=== PATIENT | male | born 1930 | race Caucasian/White ===

== ENCOUNTER 2016-03-30 10:14 | Outpatient (CLI) | payer OTHER ==
--- NOTE | 2016-03-30 10:52 | DIAGNOSTIC IMAGING REPORT ---
PROCEDURE: XR CHEST 2 VIEW INDICATION: WEAKNESS,FATIGUE,COUGH TECHNIQUE: PA and lateral views. COMPARISON: Chest 07/10/2015 and 05/27/2011 FINDINGS: There is a new right lower lobe infiltrate. Left lung is unchanged and clear other than some old scarring in the left lower lobe. IMPRESSION: 1. New right lower lobe infiltrate. Results were called to Bruna Whiteside at 10:50 a.m.
== END 2016-03-30 23:00 ==
LOC: XR SRH 10:14
DX: R91.8 Other nonspecific abnormal finding of lung field (principal)

== ENCOUNTER 2016-04-04 10:57 | Inpatient (IN) | payer OTHER ==
[2016-04-04] VITALS (8 sets, daily range): BP systolic 91–129; BP diastolic 39–63
[~2016-04-04] VITALS: Ht 180.3 cm; Wt 80.0 kg
--- NOTE | 2016-04-04 12:11 | DIAGNOSTIC IMAGING REPORT ---
PROCEDURE: XR CHEST 1 VIEW INDICATION: SYNCOPE TECHNIQUE: Portable AP view 11:56 a.m. COMPARISON: Chest 03/30/16 FINDINGS: There has been some improvement in the right lower lobe infiltrate. The left lung is unchanged. Heart size remains normal. IMPRESSION: 1. Decrease in right lower lobe infiltrate.
--- NOTE | 2016-04-04 13:26 | ED CLINICAL REPORT ---
Clinical Report - Physicians/Mid Levels [facility] [address] [place] [address] 04/04/2016 10:59 Patient: BINTA GÓMEZ SR Time Seen: 11:35 Apr 04 2016. Arrived- By ambulance. Historian- patient and EMS personnel. HISTORY OF PRESENT ILLNESS The patient has recovered. Chief Complaint: SINGLE SYNCOPAL EPISODE. This occurred just prior to arrival While visiting in [place] today. Event was witnessed. (Son). The patient felt faint, lost consciousness completely and collapsed. The patient had preceding symptoms of light-headedness and nausea. At time of event, he was standing. Had a single episode. The episode lasted (1 minutes). The patient currently has weakness. Similar symptoms previously: None. Recent medical care: Not recently seen/assessed. REVIEW OF SYSTEMS No headache, chest pain, palpitations, abdominal pain or vomiting. No diarrhea, black stools, sore throat or throat or difficulty breathing. No difficulty with urination, skin rash, enlarged lymph nodes, cough or diabetic symptoms. No easy bruising. The patient has had dizziness, weakness, and weakness. All systems otherwise negative, except as recorded above. PAST HISTORY No history of seizure, stroke or heart disease. Has not had GI bleeding. No history of dysrhythmia. Medications: Ctalopram 10 mg daily. Lovastatin 40 mg q.h.s.. Verapamil ER 180 mg q.d.. Mirtazapine 15 mg q.h.s.. Carbidopa-levodopa 25/100 q.i.d.. lisinopril 5 mg q.d. . Levofloxacin 500 mg q.d. x 10 days. Duoneb q.4-6h. prn. Rivastigmine Tartrate Oral 1.5, bid. Allergies: Erythromycin. SOCIAL HISTORY Former smoker. Occasional alcohol use. ADDITIONAL NOTES The nursing notes have been reviewed. PHYSICAL EXAM Vital Signs: 04/04/2016 11:00 BP: 143/67. HR: 131. RR: 20. O2 saturation: 91%. Appearance: Alert. No acute distress. Eyes: Pupils equal, round and reactive to light. No nystagmus. Extraocular movements normal. ENT: Normal ENT inspection. Moist mucous membranes. Pharynx normal. Neck: Normal inspection. CVS: Normal heart rate and rhythm. Heart sounds normal. Pulses normal. Respiratory: No respiratory distress. Mild rales in the right lung base posteriorly. Abdomen: Soft and nontender. Back: Normal inspection. Skin: Normal skin color. No rash. Extremities: Extremities exhibit normal ROM. No lower extremity edema. Neuro: Alert. Oriented X 3. Mood/affect normal. Speech normal. Cranial nerves normal (as tested). No cerebellar findings. No motor deficit. No sensory deficit. Reflexes normal. LABS, X-RAYS, AND EKG EKG: Rate: 131. Atrial fibrillation. Q waves in lead V1 and V2. Left axis deviation. Non-specific ST segment / T wave abnormalities. Prior EKG unavailable. The study has been interpreted contemporaneously. The study has been independently viewed by me. The EKG appears to be a good tracing. Chest X-ray: Infiltrate in the right lower lobe. Consistent with pneumonia. Views: AP (portable). Technique: good. The X-rays were independently viewed by me and interpreted contemporaneously by me. Laboratory Tests: CBC w Diff: (SARAH: 04/04/2016 13:20) ( MsgRcvd 04/04/2016 13:33) Final results Test Result Flag Units (Reference) WHITE BLOOD COUNT 8.0 K/uL (4.5-11.5) RED BLOOD COUNT 4.70 M/uL (4.50-5.90) HEMOGLOBIN 14.0 gm/dL (13.5-17.5) HEMATOCRIT 44.6 % (41.0-53.0) MEAN CELL VOLUME 95 fL (80-100) MEAN CORPUSCULAR HGB 30 pg (26-34) MEAN CORPUSCULAR HGB CONC 32 g/dL (31-37) RED CELL DISTRIBUTION WIDTH 14.2 % (11.6-14.8) PLATELET COUNT 295 K/uL (150-400) NEUTROPHIL % 83.7 H % (50-75) LYMPH % 8.6 L % (25-40) MONO % 7.3 % (3-14) EOSINOPHIL % 0.3 % (0-4) BASOPHIL % 0.1 % (0-2) PT with INR: (SARAH: 04/04/2016 13:20) ( MsgRcvd 04/04/2016 13:43) Final results Test Result Flag Units (Reference) INR 1.1 (0.8-1.2) Low Intensity Therapy: INR 1.5-2.0 PT range 18.5-23.1Mod.Intensity Therapy: INR 2.0-3.0 PT range 23.1-31.5High Intensity Therapy: INR 2.5-3.5 PT range 27.4-35.5High Intensity Therapy 2: INR 3.0-4.0 PT range 31.5-39.3 APTT 34 SECONDS (24-34) CHEM 13 PANEL: (SARAH: 04/04/2016 13:20) ( MsgRcvd 04/04/2016 13:59) IP Test Result Flag Units (Reference) GLUCOSE 110 mg/dL (70-110) BUN 19 H mg/dL (7-18) CREATININE 1.0 mg/dL (0.6-1.3) Estimated GFR >60 mL/min Estimated GFR- >60 mL/min Note: Persistent reduction over 3 months in eGFR<60 mL/min/1.73 m2 defines CKD. Patients with eGFR values>=60 mL/min/1.73 m2 may also have CKD if evidence ofpersistent proteinuria. Additional information may be foundat www.kidney.org. SODIUM 146 H mmol/L (136-145) POTASSIUM 4.5 mmol/L (3.5-5.1) CHLORIDE 108 H mmol/L (98-107) CARBON DIOXIDE 37 H mmol/L (21-32) CALCIUM 8.2 L mg/dL (8.5-10.1) TOTAL PROTEIN 6.2 L g/dL (6.4-8.2) ALBUMIN 2.7 L g/dL (3.3-5.0) BILIRUBIN, TOTAL 0.5 mg/dL (0.0-1.0) ALKALINE PHOSPHATASE 56 U/L (46-116) AST (SGOT) 19 U/L (15-37) ALT (SGPT) <6 L U/L (12-78) MAGNESIUM 1.7 L mg/dL (1.8-2.4) CPK 29 U/L (24-260) TROPONIN I 0.06 ng/mL (0.00-1.5) TROPONIN REFERENCE RANGE:<0.1 NEGATIVE0.1-1.5 INDETERMINANT>1.5 POSITIVE . PROGRESS AND PROCEDURES Course of Care: Pt took ASA 325 mg today. Diltiazem 10 mg IV Diltiazem drip 10 mg /hour Pt already on levaquin due to recently diagnosed pneumonia Patient is stable. Discussed case with on-call health care provider, (Crow). Reviewed test results. Agreed upon treatment plan. Health care provider will see patient in ED. Patient/family counseled. Old medical records ordered. Disposition orders written. Disposition: Admitted to the Critical Care Unit. CLINICAL IMPRESSION Syncope due to new onset atrial fibrillation New onset atrial fibrillation with RVR Ongoing pneumonia. (Electronically signed by Emiliano Benito MD 04/05/2016 13:42)
--- NOTE | 2016-04-04 13:26 | ED ORDER SUMMARY ---
..... Patient: BINTA GÓMEZ SR OrderSheet [facility] VisitID: [id number] [address] [place] [address] 86y, M Registration Date/Time: 04/04/2016 ORDER SHEET Weight: 84.3 kg (stated) Allergies: Erythromycin GENERAL ORDERS: Chest 1V Urgent (11:44 04/04/2016 Chasity KIM) (Ack 11:46 SCouse ER Tech1) (13:41 SBalde R.N.) Sap Pi Architect (Continuous) (11:44 04/04/2016 Chasity KIM) (12:11 SStone R.N.) Cardiac Panel Stat (:04/04/2016 Chasity KIM) (Ack 11:46 SCouse ER Tech1) (13:41 SBalde R.N.) BNP Urgent (11:04/04/2016 Chasity KIM) (Ack 11:46 SCouse ER Tech1) (13:41 SBalde R.N.) TSH Urgent (11:45 04/04/2016 Chasity KIM) (Ack 11:46 SCouse ER Tech1) (13:41 SBalde R.N.) PT with INR Urgent (11:45 04/04/2016 Chasity KIM) (Ack 11:46 SCouse ER Tech1) (13:41 SBalde R.N.) PTT Urgent (11:45 04/04/2016 Chasity KIM) (Ack 11:46 SCouse ER Tech1) (13:41 SBalde R.N.) Pulse oximeter (11:45 04/04/2016 Chasity KIM) (12:11 SStone R.N.) Oxygen (2 L/min) (NC) (:45 04/04/2016 Chasity KIM) (12:11 SStone R.N.) EKG - ER Stat (:04/04/2016 Chasity KIM) (11:45 [facility] ER Tech1) MEDICATION ORDERS: Cardizem Drip IV : 10 mg/hr for X1 (NOW); Routine (13:51 04/04/2016 Chasity KIM) (14:13 SStone R.N.) IV FLUIDS: Cardizem IV 10 mg (NOW) (11:44 04/04/2016 Chasity IKM) (12:10 SStone R.N.) IV Saline Lock (11:45 04/04/2016 Chasity KIM) (Ack 12:11 SStone R.N.) (13:40 SBalde R.N.) ORDER SHEET NOTES: [Electronically signed by Emiliano Benito MD (13:42 04/05/2016)] [Electronically signed by Lisset Zapien R.N. (11:51 04/08/2016)] [Electronically locked/signed by Lisset Zapien R.N. (11:51 04/08/2016)]
--- NOTE | 2016-04-04 13:26 | ED ORDER SUMMARY ---
..... Patient: BINTA GÓMEZ SR OrderSheet [facility] VisitID: [id number] [address] [place] [address] 86y, M Registration Date/Time: 04/04/2016 ORDER SHEET Weight: 84.3 kg (stated) Allergies: Erythromycin GENERAL ORDERS: Chest 1V Urgent (11:44 04/04/2016 Chasity KIM) (Ack 11:46 VAouse ER Tech1) (13:41 SBalde R.N.) Wind Turbine Mechanical Engineer (Continuous) (11:44 04/04/2016 Chasity KIM) (12:11 SStone R.N.) Cardiac Panel Stat (:04/04/2016 Chasity KIM) (Ack 11:46 VAouse ER Tech1) (13:41 SBalde R.N.) BNP Urgent (11:04/04/2016 Chasity KIM) (Ack 11:46 VAouse ER Tech1) (13:41 SBalde R.N.) TSH Urgent (11:45 04/04/2016 Chasity KIM) (Ack 11:46 VAouse ER Tech1) (13:41 SBalde R.N.) PT with INR Urgent (11:45 04/04/2016 Chasity KIM) (Ack 11:46 VAouse ER Tech1) (13:41 SBalde R.N.) PTT Urgent (11:45 04/04/2016 Chasity KIM) (Ack 11:46 VAouse ER Tech1) (13:41 SBalde R.N.) Pulse oximeter (11:45 04/04/2016 Chasity KIM) (12:11 SStone R.N.) Oxygen (2 L/min) (NC) (:45 04/04/2016 Chasity KIM) (12:11 SStone R.N.) EKG - ER Stat (:04/04/2016 Chasity KIM) (11:45 [facility] ER Tech1) MEDICATION ORDERS: Cardizem Drip IV : 10 mg/hr for X1 (NOW); Routine (13:51 04/04/2016 Chasity KIM) (14:13 SStone R.N.) IV FLUIDS: Cardizem IV 10 mg (NOW) (11:44 04/04/2016 Chasity KIM) (12:10 SStone R.N.) IV Saline Lock (11:45 04/04/2016 Chasity KIM) (Ack 12:11 SStone R.N.) (13:40 SBalde R.N.) ORDER SHEET NOTES: [Electronically signed by Emilinao Benito MD (13:42 04/05/2016)] [Electronically signed by Lisset Zapien R.N. (11:51 04/08/2016)] [Electronically locked/signed by Lisset Zapien R.N. (11:51 04/08/2016)]
--- NOTE | 2016-04-04 13:26 | ED NURSING NOTES ---
Clinical Report - [facility] [address] [place] [address] 04/04/2016 10:59 Patient: BINTA GÓMEZ SR TRIAGE Triage time 11:00. Acuity: LEVEL 2. Chief Complaint: (syncope and new onset of a. fib). --11:09 Lisset Zapien R.N. 11:00 04/04/16. BP: 131/69. HR: 137. RR: 22. O2 saturation: 81%. Temp: 97.9 F. --11:09 Lisset Zapien R.N. 11:09 04/04/16. O2 saturation: 92% at 3 liters/minute. --11:09 Lisset Zapien R.N. Weight: 84.3 kg stated. Height/Length: 71 inches Per Patient. BMI: 25.9. --11:08 Lisset Zapien R.N. Medications Rivastigmine Tartrate Oral 1.5, bid. --11:18 Lisset Zapien R.N. Duoneb q.4-6h. prn. --11:18 Lisset Zapien R.N. Levofloxacin 500 mg q.d. x 10 days. --11:18 Lisset Zapien R.N. lisinopril 5 mg q.d. . --11:19 Lisset Zapien R.N. Carbidopa-levodopa 25/100 q.i.d.. --11:19 Lisset Zapien R.N. Mirtazapine 15 mg q.h.s.. --11:19 Lisset Zapien R.N. Verapamil ER 180 mg q.d.. --11:19 Lisset Zapien R.N. Lovastatin 40 mg q.h.s.. --11:20 Lisset Zapien R.N. Ctalopram 10 mg daily. --11:20 Lisset Zapien R.N. Allergies Erythromycin. --11:06 Lisset Zapien R.N. History Arrived by EMS, and (M48). Historian: daughter, patient and family (Sheri). Accompanied by family. Primary physician (dom). This started just prior to arrival. Onset. (Syncope x seconds. A fib, new onset). He has had a cough. ( diagnosed with PNA 1 week prior.). Treatment LENS AND FRAMES PRESCRIPTION CLERK: None. SOCIAL HX: Former smoker. Occasional alcohol use. No drug use. No infectious disease exposure. FALL RISK ASSESSMENT: Fall risk assessment completed. Risk factors identified include patient age greater than 65 years, history of fall and impairment of mobility. Fall interventions initiated. Side rails up x2. Bed in low position. Call light in reach of patient and family. Instructed not to get up without assistance. --11:09 Lisset Zapien R.N. Interventions ID band on patient. To treatment room. --11:09 Lisset Zapien R.N. PHYSICAL ASSESSMENT To room via stretcher. Patient gowned. ( pt. family reports no known history of a. fib). GENERAL / NEURO / PSYCH: Decreased awareness. The patient is disoriented to place and time. HEENT: No facial asymmetry noted. Mucous membranes are pink. RESPIRATORY: The patient can speak in full sentences. Cough. Rhonchi present in the right lung base posteriorly. CVS: Cardiac rhythm: atrial fibrillation. GI / : Abdomen soft and nontender. SKIN: Skin intact. Skin is warm and dry. --11:16 Lisset Zapien R.N. NURSING PROGRESS NOTES 11:04/04/2016 Site #1 started prior to arrival by EMS via IV in the left wrist with an 18g angiocath. --11:11 Lisset Zapien R.N. Cardiac rhythm: atrial fibrillation. The initial plan of care for this patient includes an assessment with efforts to address impairment of the cardiovascular system; cognitive impairments. This plan of care was discussed with the patient, family and daughter and EMS. Oxygen administered. Monitoring of patient in place. EKG time: (11:11). EKG was performed by a keysha. Patient gowned. Head of bed elevated. Reassurance given. Patient identifiers checked. Call light placed in reach. Side rails up x 2. Bed placed in lowest position. Brakes of bed on. Patient ready for evaluation. Patient waiting for evaluation. --11:11 Lisset Zapien R.N. ( family at bedside. warm blanket provided. Call light within reach. within sight of the nurses's station). --11:20 Lisset Zapien R.N. 11:00 04/04/16. BP: 143/67. HR: 131. RR: 20. O2 saturation: 91% at 3 liters/minute. --11:28 Lisset Zapien R.N. 12:10 04/04/2016 Cardizem IVP 10 mg given over 2 minute(s) via site #1. --12:10 Lisset Zapien R.N. ( Cardizem 10 mg pushed. Prior to administration BP 124/72, P124 Post administration BP 104/65, P 142). --12:12 Lisset Zapien R.N. 12:12 04/04/16. BP: 85/56. HR: 111. O2 saturation: 94% at 3 liters/minute. --12:21 Lisset Zapien R.N. 12:23 04/04/16. BP: 93/66. HR: 124. --12:24 Lisset Zapien R.N. 12:29 04/04/16. BP: 125/62. HR: 118. O2 saturation: 98% at 3 liters/minute. --12:30 Lisset Zapien R.N. <<STRICKEN ENTRY-- ( Cardizem gtt at 10 mg/hr started with initial pressure of 121/70, Pulse 22, 100% on 3L. Pt. turned down to 1.5L nc). --13:03 Lisset Zapien R.N. --END STRIKE>> Charted On Wrong Patient --13:03 Lisset Zapien R.N. ( cardizem gtt at 10 mg/hr started via verbal order with initial pressure of 121/70, pulse 122, 94% on 3L nc.). --13:04 Lisset Zapien R.N. 13:18 04/04/16. BP: 124/66. HR: 124. RR: 16. --13:20 Lisset Zapien R.N. ( Dr. Maria here to see pt for admission.). --13:42 Amaya Mosquera R.N. 13:04 04/04/2016 Started 10 mg of Cardizem Drip IV in bag #1 250 mL; at 10 mg/hr over 25 hour(s) via site #1 via IV pump. Allergies verified and confirmed 5 rights. IV patency established. IV site checked: no pain, redness, or swelling. IV flushed thoroughly pre- and post-medication administration. --14:13 Lisset Zapien R.N. ( back from lunch, report back from rodney naranjo, who covered for lunch.). --14:15 Lisset Zapien R.N. 14:15 04/04/16. BP: 138/68. HR: 99. RR: 16. O2 saturation: 97% at 3 liters/minute. --14:15 Lisset Zapien R.N. ( Pt. sleeping, lunch tray ordered (cardiac diet)). --14:44 Lisset Zapien R.N. 14:43 04/04/16. BP: 104/58. HR: 94. --14:44 Lisset Zapien R.N. 15:10 04/04/16. BP: 115/57. HR: 65. RR: 16. O2 saturation: 96%. --15:34 Lisset Zapien R.N. DISPOSITION / DISCHARGE Departure time: 1535. Admitted to the Critical Care Unit ([id number]). Transported via stretcher by nurse with monitor, IV and O2. Report was given to a nurse via a phone call. Report included patient's care, treatment, medications, reviewed medication reconcilliation, and condition (including any recent changes or anticipated changes). All questions were answered. Report was acknowledged. ( iv infusing during transport to CCU). Patient's personal items; items were transported with the patient. --15:33 Lisset Zapien R.N. 15:25 04/04/16. BP: 115/57. HR: 65. RR: 18. O2 saturation: 96% on nasal cannula at 3 liters/minute. --15:33 Lisset Zapien R.N. Locked/Released at 04/08/2016 11:51 by Lisset Zapien R.N.
--- NOTE | 2016-04-04 14:08 | Progress Note ---
Subjective General 86 y.o. male with syncope, weakness, new onset afib to go to ICU for dilt gtt and try to get to beta freya. Full note dictated
--- NOTE | 2016-04-04 15:05 | HISTORY AND PHYSICAL ---
ADMITTED: 04/04/2016 CHIEF COMPLAINT: 1. Weakness 2. Syncope HISTORY OF PRESENT ILLNESS: The patient was going to go visit his at the local long-term home around 10:00 today when he started feeling weak. They were able to sit him down in a chair and then he passed out for about 60 seconds, per son who was with him. At that point, they did try to get him up into the car. They felt his legs were a little bit weak. He otherwise got over to the emergency department where, in the ED, they evaluated him and found him to be in atrial fibrillation with a rapid ventricular rate, and he is being admitted for new onset atrial fibrillation, on a diltiazem drip, to the ICU. MEDICAL/SURGICAL HISTORY: Medical history: He has had weakness, fatigue, cough, depression, dementia, edema, aortic aneurysm, Parkinson's. Family history of stroke, family history of diabetes. Family history of colon cancer. Hydronephrosis, hyperlipidemia, hypertension, and nephrolithiasis. Past surgical history: He has had a back surgery and a TURP. MEDICATIONS: 1. Levodopa/carbidopa 25/100, one p.o. q.i.d. 2. Mirtazapine 15 mg p.o. daily. 3. Tessalon Perles 100 mg p.o. daily. 4. Rivastigmine 1.5 mg p.o. b.i.d. 5. Lisinopril 10 mg p.o. daily. 6. Lovastatin 40 mg p.o. at bedtime. 7. Aspirin 81 mg daily. 8. Vitamin D 2000 international units 2 tablets daily. ALLERGIES: 1. ERYTHROMYCIN. SOCIAL HISTORY: He is , has 6 children. Evangelical. Retired. He does not do any drugs. Occasionally has some beer on a holiday, and quit smoking in 1979. FAMILY HISTORY: Notable for colon cancer, diabetes, heart disease, stroke, other cancers and Parkinson's. REVIEW OF SYSTEMS: Notable for leg weakness, upper respiratory infection and pneumonia recently, Parkinson's, bloody nose, puffy legs that has been going on just recently, and chronic memory loss issues. Denies any other bleeding and denies any other acute issues or problems. No localized weakness on his arms or legs that is unilateral or any other concerns. He does have some chronic shaking because of the Parkinson's disease. PHYSICAL EXAMINATION: GENERAL: He is an alert male, hard of hearing. VITAL SIGNS: Blood pressure 131/69, heart rate of 137, respirations 22, saturating 81% on room air initially, temperature 97.9. Repeat O2 saturation on 3 liters is 92%. HEENT: Extraocular movements are intact. Pupils equal, round, and reactive to light. Oropharynx has dentures above and below. NECK: Supple, without lymphadenopathy, jugular venous distention or bruits. LUNGS: Clear to auscultation bilaterally. HEART: Irregularly irregular. No murmur. ABDOMEN: Soft. It is nontender, nondistended. EXTREMITIES: Trace to 1+ edema bilaterally. GENITOURINARY: Deferred. RECTAL: Deferred. NEUROLOGIC: Cranial nerves II-XII appear intact, other than his hearing loss. Strength and sensation are grossly intact, with normal reflexes and good hot header operator strength bilaterally. LAB/IMAGING: White count of 8.0, hematocrit 44.6, and platelets of 295. INR of 1.1. Chemistries: Sodium 146, potassium 4.5, chloride of 108, HCO3 of 37, BUN of 19, creatinine 1.0, glucose 110, calcium 8.2, magnesium 1.7. Bilirubin 0.5, AST of 19, ALT is less than 6, alkaline phosphatase 56. A creatinine kinase of 29, troponin-I of 0.06. BNP of 749, total protein 6.2, albumin 2.7. TSH is pending. His chest x-ray shows a decrease in right lower lobe infiltrate. He is on antibiotics for this. EKG shows atrial fibrillation with a rapid ventricular rate. There is a QRS that is prolonged, with intraventricular conduction delay and appears to have Q's in the anterior leads. IMPRESSION: 1. This is an 86-year-old male who presented to the emergency department with an episode of syncope, where workup has found atrial fibrillation with a rapid ventricular rate. He also seems to be in some mild congestive heart failure. PLAN: We will admit him to the hospital, try to rate control him initially with diltiazem drip and change him over to beta blockers with metoprolol, and then use diuretics as needed for his congestive heart failure. Clinically he seems to be doing okay at the moment, with trace to 1 edema, and did not have any significant crackles on his exam. We will anticipate that it will take him a couple days in the hospital to improve. I will start him on 15 mg of Xarelto for his anticoagulation. He has had some bloody noses, and so we will have to watch this carefully. He has had a history of using an aspirin a day as well, and we will hold on this at this time, with the Xarelto being started.
[2016-04-04] MEDS ORDERED: EXELON1.5 MG PO (18:23)
[2016-04-04] MEDS ORDERED: IPRATROPIUM BROMIDE/ IN (18:24)
[2016-04-04] MEDS ORDERED: LEVAQUIN500 MG PO (18:24)
[2016-04-04] MEDS ORDERED: LISINOPRIL10 MG PO (18:25)
[2016-04-04] MEDS ORDERED: SINEMET1 TA2 PO (18:25)
[2016-04-04] MEDS ORDERED: CELEXA10 MG PO (18:26)
[2016-04-04] MEDS ORDERED: LOVASTATIN40 MG PO (18:26)
[2016-04-04] MEDS ORDERED: MIRTAZAPINE15 MG PO (18:26)
[2016-04-05] VITALS (19 sets, daily range): BP systolic 94–158; BP diastolic 49–98
--- NOTE | 2016-04-05 06:51 | Progress Note ---
Subjective General Patient states that he is doing well. No concerns. Last night spontaneously converted to sinus rhythm and is now on beta blockers. The ca channel freya gtt stopped last pm. Is waiting on echo for today. No cp, sob. Physical Exam Vital Signs / I&Os Vital Signs Date Time Temp Pulse Resp B/P Pulse O2 O2 Flow FiO2 Ox Delivery Rate 04/05 0519 98.6 57 20 129/76 97 Nasal 2.0 Cannula 04/05 0400 98.6 57 20 111/53 97 Nasal 2.0 Cannula 04/05 0300 113/60 04/05 0227 58 20 99/75 98 Nasal 2.0 Cannula 04/05 0136 60 04/05 0100 98.6 56 20 104/50 96 Nasal 2.0 Cannula 04/05 0030 104/51 04/05 0005 57 23 94/51 98 Nasal 2.0 Cannula 04/04 2306 56 97/47 04/04 2209 60 27 91/39 100 Nasal 2.0 Cannula 04/04 2108 66 32 125/54 98 Nasal 2.0 Cannula 04/04 2012 2.0 04/04 2004 Nasal 2.0 Cannula 04/04 2005 70 26 115/50 100 Nasal 2.0 Cannula 04/04 1936 77 04/04 1908 71 35 112/56 100 Nasal 2.0 Cannula 04/04 1800 70 19 98/57 100 Nasal 2.0 Cannula 04/04 1700 77 30 126/63 95 Nasal 2.0 Cannula 04/04 1600 Nasal 2.0 Cannula 04/04 1550 98.6 65 31 129/57 95 Nasal 2.0 Cannula I&O 04/05 0000 04/04 1600 04/04 0800 Intake Total 690 Output Total 150 Balance 540 General Appearance Alert, hard of hearing. HEENT hard of hearing. Lungs Clear to auscultation, Normal air movement Cardiovascular Regular rate and rhythm Abdomen Soft, No tenderness Extremities no edema LAB Results Laboratory Tests 04/05 04/05 04/04 04/04 04/04 0515 0515 2218 1320 1320 Chemistry Plasma Sodium (136 - 145 mmol/L) 144 146 Plasma Potassium (3.5 - 5.1 mmol/L) 5.1 4.5 Plasma Chloride (98 - 107 mmol/L) 107 108 CO2 (Enzymatic) (21 - 32 mmol/L) 38 37 BUN (7 - 18 mg/dL) 24 19 Creatinine (0.6 - 1.3 mg/dL) 1.0 1.0 Est GFR ( Amer) (mL/min) >60 >60 Est GFR (Non-Af Amer) (mL/min) >60 >60 Glucose (70 - 110 mg/dL) 96 110 Plasma Calcium (8.5 - 10.1 mg/dL) 7.7 8.2 Plasma Magnesium (1.8 - 2.4 mg/dL) 1.7 Total Bilirubin (0.0 - 1.0 mg/dL) 0.5 0.5 AST (15 - 37 U/L) 13 19 ALT (12 - 78 U/L) 9 <6 Alkaline Phosphatase (46 - 116 U/L) 51 56 Creatine Kinase (24 - 260 U/L) 29 Troponin (0.00 - 1.5 ng/mL) <0.05 <0.05 0.06 B-Natriuretic Peptide (5 - 100 pg/ml) 749 Total Protein (6.4 - 8.2 g/dL) 5.3 6.2 Albumin (3.3 - 5.0 g/dL) 2.5 2.7 TSH 3rd Generation (0.30 - 3.74 uIU/mL) 0.220 Coagulation INR (0.8 - 1.2) 1.1 APTT (24 - 34 SECONDS) 34 Hematology WBC (4.5 - 11.5 K/uL) 6.6 8.0 RBC (4.50 - 5.90 M/uL) 4.30 4.70 Hgb (13.5 - 17.5 gm/dL) 12.9 14.0 Hct (41.0 - 53.0 %) 41.1 44.6 MCV (80 - 100 fL) 96 95 MCH (26 - 34 pg) 30 30 RDW (11.6 - 14.8 %) 14.5 14.2 Neut % (Auto) (50 - 75 %) 66.2 83.7 Lymph % (Auto) (25 - 40 %) 18.6 8.6 Blair % (Auto) (3 - 14 %) 11.3 7.3 Eos % (Auto) (0 - 4 %) 3.6 0.3 Baso % (Auto) (0 - 2 %) 0.3 0.1 Plt Count, EDTA (150 - 400 K/uL) 259 295 PUBS MCHC (31 - 37 g/dL) 31 32 04/04 1145 Chemistry TSH 3rd Generation Cancelled Assessment and Plan Problem List 1. Atrial fibrillation Plan Now sinus this am. Trop neg. Echo pending. D/c home after echo likely 2. Weakness Plan Ambulate prior to d/c. 3. Syncope and collapse Plan Seems to be related to afib RVR now resolved. Will d/c home on beta freya with close follow up.
[2016-04-05] MEDS ORDERED: TOPROL XL50 MG PO (06:55)
--- NOTE | 2016-04-05 06:58 | Provider's Discharge Care Plan ---
Problem, Goal, Plan Problem List 1. Atrial fibrillation Instructions: Follow up as directed (1-2 weeks), Take meds as directed 2. Weakness Instructions: Take meds as directed 3. Syncope and collapse Instructions: Take meds as directed
--- NOTE | 2016-04-05 17:24 | DIAGNOSTIC IMAGING REPORT ---
REFERRING PHYSICIAN/PROVIDER: Xander Maria MD CONSULTING HOSPITALITY WORKERS: Fran Leggett MD PROCEDURE: M-mode 2D echocardiography with spectral and color flow Doppler TECHNICAL QUALITY: The study quality was technically difficult. INDICATION: NEW ONSET AFIB RHYTHM DURING PROCEDURE: The patient was in normal sinus rhythm during the exam. INTERPRETATIONS: LEFT VENTRICLE: The left ventricle is normal in size. Left ventricular wall thickness is mildly increased. Left ventricular systolic function is normal. The ejection fraction is estimated to be 55-60%. There are no obvious focal wall motion abnormalities noted but poor endocardial definition reduces the sensitivity for the detection of such. Assessment of diastolic parameters indicates the relaxation abnormality of the left ventricle, consistent with normal filling pressures. RIGHT VENTRICLE: The right ventricle is normal in size and function. ATRIA: Both atria are mildly dilated. A patent foramen ovale is present. A patent foramen ovale is present and there is a low risk for embolism. MITRAL VALVE: The mitral valve is normal in structure and function. There is trace mitral regurgitation. AORTIC VALVE: The aortic valve is not well visualized but there is no evidence for hemodynamically significant valvular aortic stenosis. There is mild aortic regurgitation. TRICUSPID VALVE: The tricuspid valve is normal in structure and function and there is mild to moderate tricuspid regurgitation. The right ventricular systolic pressure is at least 35 mmHg. PULMONIC VALVE: Pulmonic valve is not well visualized. GREAT VESSELS: The aorta root is normal size. The ascending aorta cannot be visualized. The inferior vena cava was not well visualized. PERICARDIUM: The pericardium appears normal. Miscellaneous: Hepatic cysts are noted. IMPRESSION: 1. The left ventricular wall is mildly increased and there is evidence for normal LV systolic function. 2. The right ventricle is normal in size and function. 3. There is no gross evidence for significant valvular abnormalities. 4. The aorta root is essentially within normal limits. 5. Hepatic cysts are noted. 6. A patent foramen ovale is noted but is rather small in size and low risk for embolism.
--- NOTE | 2016-04-05 18:35 | Progress Note ---
Subjective General PM note-Has some SOB and hypoxia, weakness with transfers. Trial of a little lasix and also likely d/c to SNF for weakness when he is stable. O2 NC at d/c? Physical Exam Vital Signs / I&Os Vital Signs Date Time Temp Pulse Resp B/P Pulse O2 O2 Flow FiO2 Ox Delivery Rate 04/05 1806 99.1 76 35 126/56 92 Nasal 1.0 Cannula 04/05 1609 64 15 145/95 95 Nasal 1.0 Cannula 04/05 1515 63 22 158/64 95 Nasal 1.0 Cannula 04/05 1300 62 22 123/60 95 Nasal 1.0 Cannula 04/05 1230 74 122/67 95 Nasal 1.0 Cannula 04/05 1142 Nasal 1.0 Cannula 04/05 1132 65 24 119/98 94 Nasal 3.0 Cannula 04/05 1111 59 26 119/49 94 Nasal 3.0 Cannula 04/05 0934 64 136/54 100 Nasal 3.0 Cannula 04/05 0900 Nasal 3.0 Cannula 04/05 0843 67 24 128/66 100 Nasal 2.0 Cannula 04/05 0700 2.0 04/05 0700 98.6 59 24 128/96 100 Nasal 3.0 Cannula 04/05 0600 98.6 59 27 136/65 100 Nasal 3.0 Cannula 04/05 0519 98.6 57 20 129/76 97 Nasal 2.0 Cannula 04/05 0400 98.6 57 20 111/53 97 Nasal 2.0 Cannula 04/05 0300 113/60 04/05 0227 58 20 99/75 98 Nasal 2.0 Cannula 04/05 0136 60 04/05 0100 98.6 56 20 104/50 96 Nasal 2.0 Cannula 04/05 0030 104/51 04/05 0005 57 23 94/51 98 Nasal 2.0 Cannula 04/04 2306 56 97/47 04/04 2209 60 27 91/39 100 Nasal 2.0 Cannula 04/04 2108 66 32 125/54 98 Nasal 2.0 Cannula 04/04 2012 2.0 04/04 2004 Nasal 2.0 Cannula 04/04 2004 70 26 115/50 100 Nasal 2.0 Cannula 04/04 1936 77 04/04 1908 71 35 112/56 100 Nasal 2.0 Cannula I&O 04/05 0000 04/04 1600 04/04 0800 Intake Total 690 Output Total 150 Balance 540 LAB Results Laboratory Tests 04/05 04/05 04/04 0515 [id number] Chemistry Plasma Sodium (136 - 145 mmol/L) 144 Plasma Potassium (3.5 - 5.1 mmol/L) 5.1 Plasma Chloride (98 - 107 mmol/L) 107 CO2 (Enzymatic) (21 - 32 mmol/L) 38 BUN (7 - 18 mg/dL) 24 Creatinine (0.6 - 1.3 mg/dL) 1.0 Est GFR ( Amer) (mL/min) >60 Est GFR (Non-Af Amer) (mL/min) >60 Glucose (70 - 110 mg/dL) 96 Plasma Calcium (8.5 - 10.1 mg/dL) 7.7 Total Bilirubin (0.0 - 1.0 mg/dL) 0.5 AST (15 - 37 U/L) 13 ALT (12 - 78 U/L) 9 Alkaline Phosphatase (46 - 116 U/L) 51 Troponin (0.00 - 1.5 ng/mL) <0.05 <0.05 Total Protein (6.4 - 8.2 g/dL) 5.3 Albumin (3.3 - 5.0 g/dL) 2.5 Hematology WBC (4.5 - 11.5 K/uL) 6.6 RBC (4.50 - 5.90 M/uL) 4.30 Hgb (13.5 - 17.5 gm/dL) 12.9 Hct (41.0 - 53.0 %) 41.1 MCV (80 - 100 fL) 96 MCH (26 - 34 pg) 30 RDW (11.6 - 14.8 %) 14.5 Neut % (Auto) (50 - 75 %) 66.2 Lymph % (Auto) (25 - 40 %) 18.6 [place] % (Auto) (3 - 14 %) 11.3 Eos % (Auto) (0 - 4 %) 3.6 Baso % (Auto) (0 - 2 %) 0.3 Plt Count, EDTA (150 - 400 K/uL) 259 PUBS MCHC (31 - 37 g/dL) 31
[2016-04-06 02:16] VITALS: BP 128/87
[2016-04-06 06:51] VITALS: BP 141/61
--- NOTE | 2016-04-06 07:31 | Progress Note ---
Subjective General Patient is with hx of weakness and afib. Is now in sinus and is a little more alert this am. Had PT eval done yesterday and thought he would benefit from SNF. No cp,sob. Physical Exam Vital Signs / I&Os Vital Signs Date Time Temp Pulse Resp B/P Pulse O2 O2 Flow FiO2 Ox Delivery Rate 04/06 0653 98.6 04/06 0651 71 141/61 Nasal 3.0 Cannula 04/06 0631 68 28 95 Nasal 3.0 Cannula 04/06 0216 98.1 77 19 128/87 98 Nasal 3.0 Cannula 04/05 2324 Nasal 3.0 Cannula 04/05 2246 98.6 71 30 135/67 96 Nasal 3.0 Cannula 04/05 2107 1.0 04/05 1806 99.1 76 35 126/56 92 Nasal 1.0 Cannula 04/05 1609 64 15 145/95 95 Nasal 1.0 Cannula 04/05 1515 63 22 158/64 95 Nasal 1.0 Cannula 04/05 1300 62 22 123/60 95 Nasal 1.0 Cannula 04/05 1230 74 122/67 95 Nasal 1.0 Cannula 04/05 1142 Nasal 1.0 Cannula 04/05 1132 65 24 119/98 94 Nasal 3.0 Cannula 04/05 1111 59 26 119/49 94 Nasal 3.0 Cannula 04/05 0934 64 136/54 100 Nasal 3.0 Cannula 04/05 0900 Nasal 3.0 Cannula 04/05 0843 67 24 128/66 100 Nasal 2.0 Cannula I&O 04/06 0000 04/05 1600 04/05 0800 Intake Total 825 572 954 Output Total 1650 300 Balance -825 272 954 HEENT Clear Lungs Clear to auscultation, Normal air movement Cardiovascular Regular rate and rhythm Abdomen Soft, No tenderness LAB Results Laboratory Tests 04/06 0408 Chemistry Plasma Sodium (136 - 145 mmol/L) 141 Plasma Potassium (3.5 - 5.1 mmol/L) 4.5 Plasma Chloride (98 - 107 mmol/L) 105 CO2 (Enzymatic) (21 - 32 mmol/L) 38 BUN (7 - 18 mg/dL) 20 Creatinine (0.6 - 1.3 mg/dL) 1.0 Est GFR ( Amer) (mL/min) >60 Est GFR (Non-Af Amer) (mL/min) >60 Glucose (70 - 110 mg/dL) 94 Plasma Calcium (8.5 - 10.1 mg/dL) 7.8 Assessment and Plan Problem List 1. Atrial fibrillation Plan Sinus at this time for over 24 hrs on metoprolol and doing well with BP and rate. Echo completed. 2. Weakness Plan Is working with PT and if not improved may need to have SNF. Recent pneumonia with the afib and likely cause of sig weakness.
--- NOTE | 2016-04-06 10:04 | Discharge Summary ---
Discharge Summary Report Admit Date 04/04/16 Discharge Date 04/06/16 Admission Diagnosis Afib, hx pneumonia, weakness, parkinsons Discharge Diagnosis Afib, hx pneumonia, weakness, parkinsons Brief History 86 y.o male presented to ER with hx of syncope and then found to be in Afib RVR - was with recent pneumonia ? trigger. Hospital Course 86 y.o male presented to ER with hx of syncope and then found to be in Afib RVR was treated with beta freya and dilt gtt, converted to sinus. Was still very weak and tired and low O2 sat. He is being transfered to SNF for strengthening and monitor o2 and sats General Appearance Alert, a little sleepy HEENT Atraumatic Lungs Normal air movement, some soft wheezes Cardiovascular Regular Rate Abdomen Soft, No tenderness Neurological weak Lab/Imaging Laboratory Tests 04/06 0408 Chemistry Plasma Sodium (136 - 145 mmol/L) 141 Plasma Potassium (3.5 - 5.1 mmol/L) 4.5 Plasma Chloride (98 - 107 mmol/L) 105 CO2 (Enzymatic) (21 - 32 mmol/L) 38 BUN (7 - 18 mg/dL) 20 Creatinine (0.6 - 1.3 mg/dL) 1.0 Est GFR ( Amer) (mL/min) >60 Est GFR (Non-Af Amer) (mL/min) >60 Glucose (70 - 110 mg/dL) 94 Plasma Calcium (8.5 - 10.1 mg/dL) 7.8 Discharge Instructions/Meds D/C to SNF work on strengthening. Will continue beta freya and also a low dose of lasix. Watch on O2 sats.
[2016-04-06] MEDS ORDERED: FUROSEMIDE20 MG PO (10:06)
--- NOTE | 2016-04-06 10:08 | Provider's Discharge Care Plan ---
Problem, Goal, Plan Problem List 1. Weakness Instructions: work with PT OT for strengthening at SNF, Monitor on O2 for hypoxia 2. Atrial fibrillation Instructions: Follow up as directed, Take meds as directed, resolved at this time. Discussed anticoag and holding on this with nose bleed hx and no longer afib.
[2016-04-06 11:44] VITALS: BP 128/66
--- NOTE | 2016-04-08 11:51 | ED DISCHARGE INSTRUCTIONS ---
Patient: BINTA GÓMEZ SR General Instructions [facility] VisitID: [id number] [address] [place] [address] 86y, M Registration Date/Time: 04/04/2016 Syncope due to new onset atrial fibrillation New onset atrial fibrillation with RVR Ongoing pneumonia. (Electronically signed by Emiliano Benito MD 04/05/2016 13:42)
--- NOTE | 2016-04-08 11:51 | ED MAR SUMMARY ---
..... Medication Administration Record [facility] [address] [place] [address] Patient: BINTA GÓMEZ Visit ID: [id number] 86y, M Weight: 84.3 kg Height/Length: 71 in BMI: 25.9 ALLERGIES: Erythromycin Given 12:10 04/04/2016 Lisset Zapien R.N. Medication Administered: CARDIZEM [IVP], Dose: 10 mg IVP over 2 minute(s), Site: #1 left wrist. Medication Ordered: Cardizem IV 10 mg (NOW). Start 13:04 04/04/2016 Lisset Zapien R.N. Medication Administered: CARDIZEM [IV DRIP], Dose: 10 mg Drip IV over 25 hour(s), Rate: 10 mg/hr, Dispensed: 250 mL bag, Site: #1 left wrist. Medication Ordered: Cardizem Drip IV : 10 mg/hr for X1 (NOW); Routine.
--- NOTE | 2016-04-08 11:51 | ED DISCHARGE INSTRUCTIONS ---
Patient: BINTA GÓMEZ SR General Instructions [facility] VisitID: [id number] [address] [place] [address] 86y, M Registration Date/Time: 04/04/2016 Syncope due to new onset atrial fibrillation New onset atrial fibrillation with RVR Ongoing pneumonia. (Electronically signed by Emiliano Benito MD 04/05/2016 13:42)
--- NOTE | 2016-04-08 11:51 | ED MAR SUMMARY ---
..... Medication Administration Record [facility] [address] [place] [address] Patient: BINTA GÓMEZ Visit ID: [id number] 86y, M Weight: 84.3 kg Height/Length: 71 in BMI: 25.9 ALLERGIES: Erythromycin Given 12:10 04/04/2016 Lisset Zapien R.N. Medication Administered: CARDIZEM [IVP], Dose: 10 mg IVP over 2 minute(s), Site: #1 left wrist. Medication Ordered: Cardizem IV 10 mg (NOW). Start 13:04 04/04/2016 Lisset Zapien R.N. Medication Administered: CARDIZEM [IV DRIP], Dose: 10 mg Drip IV over 25 hour(s), Rate: 10 mg/hr, Dispensed: 250 mL bag, Site: #1 left wrist. Medication Ordered: Cardizem Drip IV : 10 mg/hr for X1 (NOW); Routine.
--- NOTE | 2016-04-08 11:51 | ED MED RECONCILIATION SUMMARY ---
Patient: BINTA GÓMEZ SR Medication Reconciliation Report [facility] VisitID: [id number] [address] [place] [address] 86y, M Registration Date/Time: 04/04/2016 Weight: 84.3 kg Height/Length: 71 in. BMI: 25.9 ALLERGIES: Erythromycin The patient's Home Medications are listed below: THE FOLLOWING MEDICATIONS NEED TO BE RECONCILED: Carbidopa-levodopa 25/100 q.i.d. Ctalopram 10 mg daily Duoneb q.4-6h. prn Levofloxacin 500 mg q.d. x 10 days lisinopril 5 mg q.d. Lovastatin 40 mg q.h.s. Mirtazapine 15 mg q.h.s. Rivastigmine Tartrate Oral 1.5, bid Verapamil ER 180 mg q.d. The source(s) of the original Home Medication information: Not obtained. The following Medications were given to the patient in the Emergency Department: Cardizem [IVP] IVP 10 mg, administered: 04/04/2016 12:10:00 PM Cardizem [IV Drip] Drip IV bolus 0, then 10 mg 10 mg/hr, administered: 04/04/2016 1:04:00 PM The following Medications were prescribed to the patient: None.
--- NOTE | 2016-04-08 11:51 | ED MED RECONCILIATION SUMMARY ---
Patient: BINTA GÓMEZ SR Medication Reconciliation Report [facility] VisitID: [id number] [address] [place] [address] 86y, M Registration Date/Time: 04/04/2016 Weight: 84.3 kg Height/Length: 71 in. BMI: 25.9 ALLERGIES: Erythromycin The patient's Home Medications are listed below: THE FOLLOWING MEDICATIONS NEED TO BE RECONCILED: Carbidopa-levodopa 25/100 q.i.d. Ctalopram 10 mg daily Duoneb q.4-6h. prn Levofloxacin 500 mg q.d. x 10 days lisinopril 5 mg q.d. Lovastatin 40 mg q.h.s. Mirtazapine 15 mg q.h.s. Rivastigmine Tartrate Oral 1.5, bid Verapamil ER 180 mg q.d. The source(s) of the original Home Medication information: Not obtained. The following Medications were given to the patient in the Emergency Department: Cardizem [IVP] IVP 10 mg, administered: 04/04/2016 12:10:00 PM Cardizem [IV Drip] Drip IV bolus 0, then 10 mg 10 mg/hr, administered: 04/04/2016 1:04:00 PM The following Medications were prescribed to the patient: None.
== END 2016-04-06 14:30 | DRG 308 ==
LOC: ED SRH 10:57 → TRANS SRH 13:33 → CC SRH 15:41
PROVIDERS: ADMIT Emergency Medicine
PROC: 3E0234Z Introduction of Serum, Toxoid and Vaccine into Muscle, Percutaneous Approach (ICD-10-PCS; principal; 2016-04-06)
DX: I48.91 Unspecified atrial fibrillation (principal); J18.9 Pneumonia, unspecified organism; R55 Syncope and collapse; R53.1 Weakness; G20 Parkinson's disease; I50.9 Heart failure, unspecified; F02.80 Dementia in other diseases classified elsewhere, unspecified severity, without behavioral disturbance, psychotic disturbance, mood disturbance, and anxiety; Z23 Encounter for immunization
CPT/HCPCS: 29257; 85241; 90047; 90074; 90100; 90616; 91320; 92132; 92610; 92720; 93140; 94001; 94060; 95059

== ENCOUNTER 2016-04-26 17:09 | Outpatient (CLI) | payer OTHER ==
[~2016-04-26 17:09] MED LIST: CELEXA10 MG PO; EXELON1.5 MG PO; FUROSEMIDE20 MG PO; IPRATROPIUM BROMIDE/ IN; LEVAQUIN500 MG PO; LISINOPRIL10 MG PO; LOVASTATIN40 MG PO; MIRTAZAPINE15 MG PO; SINEMET1 TA2 PO; TOPROL XL50 MG PO
--- NOTE | 2016-04-26 17:34 | DIAGNOSTIC IMAGING REPORT ---
PROCEDURE: XR CHEST 2 VIEW INDICATION: PNEUMONIA, follow-up TECHNIQUE: PA and lateral view. COMPARISON: Chest x-ray 04/04/2016 FINDINGS: Hyperinflation. Continued right basilar infiltrate improvement. Left lung is clear. Mild cardiomegaly. Mediastinum and pulmonary vessels are normal. Moderate degenerative changes of the spine. IMPRESSION: 1. Continued improvement of the right basilar infiltrate 2. Hyperinflation 3. Cardiomegaly
== END 2016-04-26 23:00 ==
LOC: XR SRH 17:09
DX: J15.9 Unspecified bacterial pneumonia (principal); R60.9 Edema, unspecified; G31.83 Neurocognitive disorder with Lewy bodies; F02.80 Dementia in other diseases classified elsewhere, unspecified severity, without behavioral disturbance, psychotic disturbance, mood disturbance, and anxiety

== ENCOUNTER 2016-05-10 12:07 | Outpatient (CLI) | payer OTHER ==
--- NOTE | 2016-05-10 13:58 | DIAGNOSTIC IMAGING REPORT ---
PROCEDURE: XR CHEST 2 VIEW INDICATION: PNEUMONIA, BACTERIAL,COUGH,EDEMA TECHNIQUE: PA and lateral view. COMPARISON: Chest x-ray 04/26/2016 FINDINGS: Hyperinflation with a stable mild right basilar infiltrate/scarring. Left lung is clear. Stable mild cardiomegaly. Mediastinum and pulmonary vessels are normal. Moderate hiatal hernia. Degenerative changes of the spine. IMPRESSION: 1. Stable small chronic right basilar infiltrate versus scarring 2. Hyperinflation 3. Cardiomegaly 4. Hiatal hernia
== END 2016-05-10 23:00 ==
LOC: XR SRH 12:07
DX: R91.8 Other nonspecific abnormal finding of lung field (principal); R05 Cough; R60.9 Edema, unspecified; I51.7 Cardiomegaly; K44.9 Diaphragmatic hernia without obstruction or gangrene

== ENCOUNTER 2016-05-17 11:00 | Inpatient (IN) | payer OTHER ==
[~2016-05-17] VITALS: Ht 182.9 cm; Wt 84.0 kg
--- NOTE | 2016-05-17 12:11 | DIAGNOSTIC IMAGING REPORT ---
PROCEDURE: XR CHEST 1 VIEW INDICATION: SHORTNESS OF BREATH TECHNIQUE: Portable AP view 12:01 p.m. COMPARISON: Chest 05/10 and 04/26/2016 FINDINGS: New left lower lobe infiltrate. Increase in right lower lobe infiltrate and right pleural effusion. IMPRESSION: 1. Left lower lobe infiltrate. Increase in right lower lobe infiltrate and effusion.
--- NOTE | 2016-05-17 16:28 | ED CLINICAL REPORT ---
Clinical Report - Physicians/Mid Levels [facility] [address] [place] [address] 05/17/2016 11:01 Patient: BINTA GÓMEZ SR Time Seen: 11:23; initial patient contact. Arrived- By private vehicle. Historian- patient and family. HISTORY OF PRESENT ILLNESS Chief Complaint: DECREASED MENTAL STATUS. This started today and is still present. It was gradual in onset. The patient has been confused and is described as having decreased responsiveness. No alcohol recently. The patient has had weakness. He has had difficulty walking. Usually is alert and oriented X3 and usually has normal mobility. Similar symptoms previously: None. Recent medical care: The patient was seen recently in the office and hospitalized. ( Pneumonia). REVIEW OF SYSTEMS No fever. He has had sputum production, difficulty breathing and a cough. All systems otherwise negative, except as recorded above. PAST HISTORY ( Nephrolithiasis. Hyperlipidemia. Hydronephrosis. Abdominal aortic aneurysm. Edema. Chest Wall Pain. Dementia. Depression. Pneumonia. Subconjunctival Hemorrhage. Hypertension. Parkinson's Disease. Ureterolithiasis.). SOCIAL HISTORY Former smoker. No alcohol use or drug use. ADDITIONAL NOTES The nursing notes have been reviewed with agreement regarding the chief complaint, PMH and patient medications and allergies. PHYSICAL EXAM Vital Signs: 05/17/2016 11:05 BP: 141/53. HR: 66. RR: 26. O2 saturation: 93%. Temp: 98.3 F. Have been reviewed. Hypotensive. Heart rate normal. Tachypneic. Temperature normal. Oxygen saturation low. Appearance: Patient in mild distress. ENT: Airway intact. Moist mucous membranes. CVS: Normal heart rate and rhythm. Heart sounds normal. Respiratory: Mild respiratory distress with accessory muscle use and tachypnea. Mild rales present in the bases bilaterally. No decreased air movement. Abdomen: Soft and nontender. Skin: Skin warm and dry. Normal skin color. No rash. Extremities: No lower extremity edema. Neuro: Alertness is decreased. LABS, X-RAYS, AND EKG CTA Pulmonary Arteries: No evidence of pulmonary embolism. Sub-optimal study due to breathing artifact. R and L LL infiltrate v/s effusion. CHF. The CTA was performed with contrast. Interpretation time: 16:11. Laboratory Tests: UA-Culture if indicated: (SARAH: 05/17/2016 13:40) ( [facility] 05/17[facility]2016 14:08) Final results Test Result Flag Units (Reference) URINE COLOR TAMMY URINE APPEARANCE CLEAR URINE GLUCOSE NEGATIVE (NEGATIVE) URINE BILIRUBIN NEGATIVE (NEGATIVE) URINE KETONE NEGATIVE (NEGATIVE) URINE SPECIFIC GRAVITY >= 1.030 (1.010-1.030) URINE PH 6.0 (5.0-8.0) URINE PROTEIN TRACE (NEGATIVE) URINE UROBILINOGEN 2.0 EU/dL (0.2-1.0) The urobilinogen reagent area may react with interferingsubstances known to react with Miriam's reagent such asp-aminosalicylic acid and sulfonamides. Atypical colorreactions may be obtained in the presence of highconcentrations of p-aminobenzoic acid. The absence ofurobilinogen cannot be determined with this test. URINE NITRITE NEGATIVE (NEGATIVE) URINE BLOOD NEGATIVE (NEGATIVE) URINE LEUK ESTERASE NEGATIVE (NEGATIVE) URINE RBC 1-3 rbc/hpf (0-1) URINE WBC NONE SEEN wbc/hpf (0-1) URINE EPITHELIAL CELLS NONE SEEN EPI/hpf (0-5) URINE BACTERIA NONE SEEN (NONE SEEN) URINE COMMENT CULT NOT INDICATED TRACE MUCUSURINE CULTURES ARE SET-UP BASED ON THE FOLLOWING CRITERIA:POSITIVE NITRITEPOSITIVE LEUKOCYTE ESTERASEGREATER THAN 10 WHITE BLOOD CELLSMODERATE (2+) OR GREATER BACTERIA CBC w Diff: (SARAH: 05/17/2016 11:15) ( [facility] 05/17/2016 12:00) Final results Test Result Flag Units (Reference) WHITE BLOOD COUNT 6.4 K/uL (4.5-11.5) RED BLOOD COUNT 4.58 M/uL (4.50-5.90) HEMOGLOBIN 13.8 gm/dL (13.5-17.5) HEMATOCRIT 43.1 % (41.0-53.0) MEAN CELL VOLUME 94 fL (80-100) MEAN CORPUSCULAR HGB 30 pg (26-34) MEAN CORPUSCULAR HGB CONC 32 g/dL (31-37) RED CELL DISTRIBUTION WIDTH 16.6 H % (11.6-14.8) PLATELET COUNT 197 K/uL (150-400) NEUTROPHIL % 73.5 % (50-75) LYMPH % 15.5 L % (25-40) MONO % 8.5 % (3-14) EOSINOPHIL % 2.2 % (0-4) BASOPHIL % 0.3 % (0-2) PT with INR: (SARAH: 05/17/2016 11:15) ( [facility] 05/17/2016 12:11) Final results Test Result Flag Units (Reference) INR 1.1 (0.8-1.2) Low Intensity Therapy: INR 1.5-2.0 PT range 18.5-23.1Mod.Intensity Therapy: INR 2.0-3.0 PT range 23.1-31.5High Intensity Therapy: INR 2.5-3.5 PT range 27.4-35.5High Intensity Therapy 2: INR 3.0-4.0 PT range 31.5-39.3 APTT 31 SECONDS (24-34) D-DIMER QUANTITATIVE 1.89 H ug/mLFEU (0.27-0.52) The primary value of this quantitative assay relates toits negative predictive value (i.e. exclusion) of pulmonaryembolism/deep vein thrombosis/DIC.Elevated levels of d-dimer may also occur with:, age, cancer, inflammation, liver disease,post-op, infection, hematoma, coronary disease, peripheralarteriopathy, bleeding disorders and thrombolytic treatment.Results should be correlated with other clinical andradiological data.Testing Methodology: Latex Immunoassay [id number]: (SARAH: 05/17/2016 13:45) ( [facility] 05/17/2016 14:17) Final results Test Result Flag Units (Reference) LACTIC ACID SEPSIS PROTOCOL 0.8 mmol/L (0.4-2.0) [id number]: (SARAH: 05/17/2016 11:50) ( MsgRcvd 05/17/2016 13:39) Final results Test Result Flag Units (Reference) PROCALCITONIN < 0.05 ng/mL (0-0.5) PCT Concentration: Interpretation : Risk/option for action PCT <=0.5 ng/mL : Systemic : Low risk forinfection(sepsis): progression to severeis not likely. : systemic infection.Local bacterial : CAUTION-PCT levelsinfection is : below 0.5 ng/mL do notpossible. : exclude an infection,because localizedinfections (withoutsystemic signs) may beassociated with suchlow levels. If PCT ismeasured very earlyafter a bacterialchallenge (usually <6hours), these valuesmay still be low. Inthis case PCT shouldbe re-assessed 6-24hours later. PCT >0.5 and : Systemic infection: Moderate risk for<= 2 ng/mL : (sepsis) is : progression to severepossible, but : systemic infection.other conditions : The patient should beare known to : closely monitoredelevate PCT. : both clinically andby re-assessing PCTwithin 6-24 hours. PCT > 2 ng/mL : Systemic infection: High risk for(sepsis) is likely: progression to severeunless other : systemic infection.causes are known. : PCT >= 10 ng/mL : Important systemic: High likelihood ofinflammatory : severe sepsis orresponse, almost : septic shock.exclusively due to:severe bacterial :sepsis or septic :shock. : BNP: (SARAH: 05/17/2016 11:15) ( [facility] 12[facility]20) Final results Test Result Flag Units (Reference) B-TYPE NATRIURETIC PEPTIDE 1080 H pg/ml (5-100) CMP: (SARAH: 05/17/2016 11:15) ( MsgRcvd 05/17/2016 12:08) Final results Test Result Flag Units (Reference) GLUCOSE 95 mg/dL (70-110) BUN 20 H mg/dL (7-18) CREATININE 0.8 mg/dL (0.6-1.3) Estimated GFR >60 mL/min Estimated GFR- >60 mL/min Note: Persistent reduction over 3 months in eGFR<60 mL/min/1.73 m2 defines CKD. Patients with eGFR values>=60 mL/min/1.73 m2 may also have CKD if evidence ofpersistent proteinuria. Additional information may be foundat www.kidney.org. SODIUM 145 mmol/L (136-145) POTASSIUM 4.6 mmol/L (3.5-5.1) CHLORIDE 104 mmol/L (98-107) CARBON DIOXIDE 38 H mmol/L (21-32) CALCIUM 8.3 L mg/dL (8.5-10.1) TOTAL PROTEIN 6.6 g/dL (6.4-8.2) ALBUMIN 3.2 L g/dL (3.3-5.0) BILIRUBIN, TOTAL 1.1 H mg/dL (0.0-1.0) ALKALINE PHOSPHATASE 77 U/L (46-116) AST (SGOT) 16 U/L (15-37) ALT (SGPT) <6 L U/L (12-78) . PROGRESS AND PROCEDURES Discussed case with patient's primary care provider, (call returned 16:27 Dr. Salguero, agreed to admission). Reviewed test results and need for additional work-up. Agreed upon decision to admit. Health care provider will see patient in hospital. Disposition: Condition: stable. CLINICAL IMPRESSION Acute moderate congestive heart failure. Bacterial pneumonia with hypoxemia. Vital signs recorded and reviewed; empiric antibiotics given in the ED. (Electronically signed by Valentino Kiran Dr. 05/17/2016 22:12)
--- NOTE | 2016-05-17 16:28 | ED NURSING NOTES ---
Clinical Report - Nurses [facility] [address] [place] [address] 05/17/2016 11:01 Patient: BINTA GÓMEZ SR TRIAGE Triage time 11:00. Acuity: LEVEL 3. Chief Complaint: CONFUSED. 11:13 05/17/16. Alert. No acute distress. SEPSIS SCREEN: Sepsis Screen. Negative (no infection suspected/documented). Respiratory rate greater than 20. Temperature not greater than 38.3 degrees C (101 degrees F). Heart rate not greater than 90. TRAM COMA SCORE: [place] Coma Scale: 14- eyes open spontaneously (4); best verbal response- disoriented (4); best motor response- obeys commands (6). --11:13 Korey Reyes R.N. 11:05 05/17/16. BP: 141/53. HR: 66. RR: 26. O2 saturation: 93%. Temp: 98.3 F (oral). Pain level now 0/10. --11:13 Korey Reyes R.N. Weight: 84.3 kg stated. Height/Length: 65 inches Per Patient. BMI: 31. --11:06 Korey Reyes R.Tristan. Medications Furosemide Oral. --11:13 Korey Reyes R.N. Ipratropium-Albuterol Inhalation. --11:13 Korey Reyes R.N. Carbidopa-Levodopa Oral. --11:13 Korey Reyes R.NNathalie Mirtazapine Oral. --11:13 Korey Reyes R.N. Rivastigmine Tartrate Oral. --11:13 Korey Reyes R.N. Lisinopril Oral. --11:14 Korey Reyes R.N. Lovastatin Oral. --11:14 Korey Reyes R.N. Aspirin Oral. --11:14 Korey Reyes R.N. Vitamin D Oral. --11:14 Korey Reyes R.N. Metoprolol Succinate ER Oral. --11:14 Korey Reyes R.N. (pcp med list). --11:13 Korey Reyes R.N. Allergies Erythromycin. --11:14 Korey Reyes R.N. History Historian: EMS and family. Primary physician (dom). ( onset of confusion and generalized weakness this morning. FAST exam negative. Per EMS and family Pt is on 2.5 liters oxygen NC at home and family bumped it to 4 liters this morning following sats of 88%. Family states pt has been having visual hallucinations over the past day). This started today. Patient was last known well (2 days ago). 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 EMS treatment NETWORK PRICING CONSULTANT verbally communicated. BP: 138/61. HR: 60. RR: 24. Temp: 98.9. O2 saturation: 94 % on oxygen (nasal cannula) (at 4 liters/minute). Upon arrival patient awake and confused. SOCIAL HX: Former smoker, end date 1986. No alcohol use or drug use. FALL RISK ASSESSMENT: Fall risk assessment completed. No fall risk identified. NUTRITIONAL RISK ASSESSMENT: The nutritional risk assessment revealed no deficiencies. FUNCTIONAL ASSESSMENT: Functional assessment: no impairments noted. LEARNING NEEDS ASSESSMENT: The learning needs assessment revealed no barriers. SKIN INTEGRITY ASSESSMENT: Skin integrity risk assessment completed. No skin integrity risk identified. --11:13 Korey Reyes R.N. PROBLEMS: Nephrolithiasis. Hyperlipidemia. Hydronephrosis. Abdominal aortic aneurysm. Edema. Chest Wall Pain. Dementia. Depression. Pneumonia. Subconjunctival Hemorrhage. Hypertension. Parkinson's Disease. Ureterolithiasis. --11:16 Korey Reyes R.N. Interventions ID band on patient. To treatment room. --11:13 Korey Reyes R.N. PHYSICAL ASSESSMENT 11:19 05/17/16. GENERAL / NEURO / PSYCH: Alert. Appears in no acute distress. The patient is disoriented to time and situation. Speech within normal limits. RESPIRATORY: Breath sounds within normal limits. CVS: Capillary refill less than 2 seconds. GI / : Abdomen soft and nontender. EXTREMITIES: Lower extremity edema. bilateral trace edema. SKIN: Skin is warm and dry. Normal skin turgor. --11:19 Korey Reyes R.N. NURSING PROGRESS NOTES 11:19 05/17/16. The plan of care for this patient has been created. Oxygen administered by nasal cannula at 4 liters. Patient gowned. Head of bed elevated. Call light placed in reach. Bed placed in lowest position. Brakes of bed on. Patient ready for evaluation- chart flagged. --11:19 Korey Reyes R.N. 12:07 05/17/2016 Site #1 started via IV in the left antecubital space with an 20g angiocath, with aseptic technique and good blood return; one attempt. Blood drawn: rainbow set. Labeled in the presence of the patient and sent to the lab. Saline lock flushed with 10 mL saline. --12:32 Zayda Vaughn R.N. 13:11. ( Lab called to draw 2 blood cultures). --13:14 Perez Zhao 12:30 05/17/16. ( Report received.). --16:53 Zayda Vaughn R.N. 13:40 05/17/2016 Lasix IVP 40 mg given over 5 minute(s) via site #1. Allergies verified and confirmed 5 rights. IV patency established. IV site checked: no pain, redness, or swelling. IV flushed thoroughly pre- and post-medication administration. --13:40 Zayda Vaughn R.N. 13:40 05/17/2016 Started 1 gm of Ceftriaxone IVPB in bag #1 50 mL; at 100 mL/hr over 1 hour(s) via site #1 via IV pump. Allergies verified and confirmed 5 rights. IV patency established. IV site checked: no pain, redness, or swelling. IV flushed thoroughly pre- and post-medication administration. --13:40 Zayda Vaughn R.N. 13:40 05/17/2016 Site #2 started via IV in the right antecubital space with an 18g angiocath, with aseptic technique and good blood return; one attempt. Saline lock flushed with 10 mL saline. --17:06 Zayda Vaughn R.N. 14:32 05/17/2016 Ceftriaxone IVPB Discontinued: bag #1 infused. Total amount infused: 50 mL. IV patency established. IV site checked: no pain, redness, or swelling. IV flushed thoroughly. --14:57 Zayda Vaughn R.N. 14:57 05/17/2016 Hydroxyzine IM 25 mg given. Given in the left gluteus jaida. Allergies verified, confirmed 5 rights and sedative warning given to the patient and patient's family. --14:57 Zayda Vaughn R.N. ( H/P forms on chart.). --16:29 LizetteNelsonHermelinda, [place] [address] 14:45 05/17/16. BP: 161/68. HR: 66. RR: 29. O2 saturation: 98% on nasal cannula at 3 liters/minute. 14:00 05/17/16. BP: 137/66. HR: 63. RR: 27. O2 saturation: 92%. Temp: 99 F. 13:30 05/17/16. BP: 148/80. HR: 62. RR: 30. O2 saturation: 93% on nasal cannula at 3 liters/minute. 13:00 05/17/16. BP: 100/51. HR: 65. RR: 18. O2 saturation: 95% on nasal cannula at 3 liters/minute. 12:30 05/17/16. BP: 109/70. HR: 65. RR: 18. O2 saturation: 94% on nasal cannula at 2 liters/minute. --16:59 Zayda Vaughn R.N. 16:45 05/17/16. BP: 148/53. HR: 62. RR: 22. O2 saturation: 94% on nasal cannula at 3 liters/minute. 15:45 05/17/16. BP: 110/70. HR: 65. RR: 24. O2 saturation: 94% on nasal cannula at 3 liters/minute. --17:03 Zayda Vaughn R.N. 14 fr double lumen goddard catheter. Reason for indwelling catheter: patient's decreased level of consciousness. During procedure hand hygiene observed and sterile equipment and aseptic technique used. Return of yellow-colored clear urine; odor is normal; attached to bedside drainage bag positioned below the bladder and secured with velcro and stabilization device. He tolerated procedure well. --17:06 Zayda Vaughn R.N. 17:30 05/17/16. BP: 132/47. HR: 60. RR: 13. O2 saturation: 95% on nasal cannula at 3 liters/minute. 16:45 05/17/16. BP: 148/53. HR: 62. RR: 22. O2 saturation: 94% on nasal cannula at 3 liters/minute. --17:58 Zayda Vaughn R.N. Intake & Output IVPB volume: 50 mL. Urine: 3005 mL, with return of yellow-colored clear urine; odor is normal; attached to bedside drainage bag. --17:04 Zayda Vaughn R.N. Urine: 700 mL, with return of yellow-colored clear urine. --17:58 Zayda Vaughn R.N. DISPOSITION / DISCHARGE Departure time: 17:59 May 17 2016. Admitted to Acute Care. ( Report given to Karol RAHMAN). --17:59 Zayda Vaughn R.N. 17:30 05/17/16. BP: 132/47. HR: 60. RR: 13. O2 saturation: 95% on nasal cannula at 3 liters/minute. --17:59 Zayda Vaughn R.N. Locked/Released at 05/20/2016 19:15 by Zayda Vaughn R.N.
--- NOTE | 2016-05-17 16:28 | ED CLINICAL REPORT ---
Clinical Report - Physicians/Mid Levels [facility] [address] [place] [address] 05/17/2016 11:01 Patient: BINTA GÓMEZ SR Time Seen: 11:23; initial patient contact. Arrived- By private vehicle. Historian- patient and family. HISTORY OF PRESENT ILLNESS Chief Complaint: DECREASED MENTAL STATUS. This started today and is still present. It was gradual in onset. The patient has been confused and is described as having decreased responsiveness. No alcohol recently. The patient has had weakness. He has had difficulty walking. Usually is alert and oriented X3 and usually has normal mobility. Similar symptoms previously: None. Recent medical care: The patient was seen recently in the office and hospitalized. ( Pneumonia). REVIEW OF SYSTEMS No fever. He has had sputum production, difficulty breathing and a cough. All systems otherwise negative, except as recorded above. PAST HISTORY ( Nephrolithiasis. Hyperlipidemia. Hydronephrosis. Abdominal aortic aneurysm. Edema. Chest Wall Pain. Dementia. Depression. Pneumonia. Subconjunctival Hemorrhage. Hypertension. Parkinson's Disease. Ureterolithiasis.). SOCIAL HISTORY Former smoker. No alcohol use or drug use. ADDITIONAL NOTES The nursing notes have been reviewed with agreement regarding the chief complaint, PMH and patient medications and allergies. PHYSICAL EXAM Vital Signs: 05/17/2016 11:05 BP: 141/53. HR: 66. RR: 26. O2 saturation: 93%. Temp: 98.3 F. Have been reviewed. Hypotensive. Heart rate normal. Tachypneic. Temperature normal. Oxygen saturation low. Appearance: Patient in mild distress. ENT: Airway intact. Moist mucous membranes. CVS: Normal heart rate and rhythm. Heart sounds normal. Respiratory: Mild respiratory distress with accessory muscle use and tachypnea. Mild rales present in the bases bilaterally. No decreased air movement. Abdomen: Soft and nontender. Skin: Skin warm and dry. Normal skin color. No rash. Extremities: No lower extremity edema. Neuro: Alertness is decreased. LABS, X-RAYS, AND EKG CTA Pulmonary Arteries: No evidence of pulmonary embolism. Sub-optimal study due to breathing artifact. R and L LL infiltrate v/s effusion. CHF. The CTA was performed with contrast. Interpretation time: 16:11. Laboratory Tests: UA-Culture if indicated: (SARAH: 05/17/2016 13:40) ( [facility] 05/17/[facility] 14:08) Final results Test Result Flag Units (Reference) URINE COLOR TAMMY URINE APPEARANCE CLEAR URINE GLUCOSE NEGATIVE (NEGATIVE) URINE BILIRUBIN NEGATIVE (NEGATIVE) URINE KETONE NEGATIVE (NEGATIVE) URINE SPECIFIC GRAVITY >= 1.030 (1.010-1.030) URINE PH 6.0 (5.0-8.0) URINE PROTEIN TRACE (NEGATIVE) URINE UROBILINOGEN 2.0 EU/dL (0.2-1.0) The urobilinogen reagent area may react with interferingsubstances known to react with Miriam's reagent such asp-aminosalicylic acid and sulfonamides. Atypical colorreactions may be obtained in the presence of highconcentrations of p-aminobenzoic acid. The absence ofurobilinogen cannot be determined with this test. URINE NITRITE NEGATIVE (NEGATIVE) URINE BLOOD NEGATIVE (NEGATIVE) URINE LEUK ESTERASE NEGATIVE (NEGATIVE) URINE RBC 1-3 rbc/hpf (0-1) URINE WBC NONE SEEN wbc/hpf (0-1) URINE EPITHELIAL CELLS NONE SEEN EPI/hpf (0-5) URINE BACTERIA NONE SEEN (NONE SEEN) URINE COMMENT CULT NOT INDICATED TRACE MUCUSURINE CULTURES ARE SET-UP BASED ON THE FOLLOWING CRITERIA:POSITIVE NITRITEPOSITIVE LEUKOCYTE ESTERASEGREATER THAN 10 WHITE BLOOD CELLSMODERATE (2+) OR GREATER BACTERIA CBC w Diff: (SARAH: 05/17/2016 11:15) ( [facility] 05/17/2016 12:00) Final results Test Result Flag Units (Reference) WHITE BLOOD COUNT 6.4 K/uL (4.5-11.5) RED BLOOD COUNT 4.58 M/uL (4.50-5.90) HEMOGLOBIN 13.8 gm/dL (13.5-17.5) HEMATOCRIT 43.1 % (41.0-53.0) MEAN CELL VOLUME 94 fL (80-100) MEAN CORPUSCULAR HGB 30 pg (26-34) MEAN CORPUSCULAR HGB CONC 32 g/dL (31-37) RED CELL DISTRIBUTION WIDTH 16.6 H % (11.6-14.8) PLATELET COUNT 197 K/uL (150-400) NEUTROPHIL % 73.5 % (50-75) LYMPH % 15.5 L % (25-40) MONO % 8.5 % (3-14) EOSINOPHIL % 2.2 % (0-4) BASOPHIL % 0.3 % (0-2) PT with INR: (SARAH: 05/17/2016 11:15) ( [facility] 12:11) Final results Test Result Flag Units (Reference) INR 1.1 (0.8-1.2) Low Intensity Therapy: INR 1.5-2.0 PT range 18.5-23.1Mod.Intensity Therapy: INR 2.0-3.0 PT range 23.1-31.5High Intensity Therapy: INR 2.5-3.5 PT range 27.4-35.5High Intensity Therapy 2: INR 3.0-4.0 PT range 31.5-39.3 APTT 31 SECONDS (24-34) D-DIMER QUANTITATIVE 1.89 H ug/mLFEU (0.27-0.52) The primary value of this quantitative assay relates toits negative predictive value (i.e. exclusion) of pulmonaryembolism/deep vein thrombosis/DIC.Elevated levels of d-dimer may also occur with:, age, cancer, inflammation, liver disease,post-op, infection, hematoma, coronary disease, peripheralarteriopathy, bleeding disorders and thrombolytic treatment.Results should be correlated with other clinical andradiological data.Testing Methodology: Latex Immunoassay [id number]: (SARAH: 05/17/2016 13:45) ( NhgRcvd 05/17/2016 14:17) Final results Test Result Flag Units (Reference) LACTIC ACID SEPSIS PROTOCOL 0.8 mmol/L (0.4-2.0) [id number]: (SARAH: 05/17/2016 11:50) ( MsgRcvd 05/17/2016 13:39) Final results Test Result Flag Units (Reference) PROCALCITONIN < 0.05 ng/mL (0-0.5) PCT Concentration: Interpretation : Risk/option for action PCT <=0.5 ng/mL : Systemic : Low risk forinfection(sepsis): progression to severeis not likely. : systemic infection.Local bacterial : CAUTION-PCT levelsinfection is : below 0.5 ng/mL do notpossible. : exclude an infection,because localizedinfections (withoutsystemic signs) may beassociated with suchlow levels. If PCT ismeasured very earlyafter a bacterialchallenge (usually <6hours), these valuesmay still be low. Inthis case PCT shouldbe re-assessed 6-24hours later. PCT >0.5 and : Systemic infection: Moderate risk for<= 2 ng/mL : (sepsis) is : progression to severepossible, but : systemic infection.other conditions : The patient should beare known to : closely monitoredelevate PCT. : both clinically andby re-assessing PCTwithin 6-24 hours. PCT > 2 ng/mL : Systemic infection: High risk for(sepsis) is likely: progression to severeunless other : systemic infection.causes are known. : PCT >= 10 ng/mL : Important systemic: High likelihood ofinflammatory : severe sepsis orresponse, almost : septic shock.exclusively due to:severe bacterial :sepsis or septic :shock. : BNP: (SARAH: 05/17/2016 11:15) ( [facility] 12[facility]20) Final results Test Result Flag Units (Reference) B-TYPE NATRIURETIC PEPTIDE 1080 H pg/ml (5-100) CMP: (SARAH: 05/17/2016 11:15) ( MsgRcvd 05/17/2016 12:08) Final results Test Result Flag Units (Reference) GLUCOSE 95 mg/dL (70-110) BUN 20 H mg/dL (7-18) CREATININE 0.8 mg/dL (0.6-1.3) Estimated GFR >60 mL/min Estimated GFR- >60 mL/min Note: Persistent reduction over 3 months in eGFR<60 mL/min/1.73 m2 defines CKD. Patients with eGFR values>=60 mL/min/1.73 m2 may also have CKD if evidence ofpersistent proteinuria. Additional information may be foundat www.kidney.org. SODIUM 145 mmol/L (136-145) POTASSIUM 4.6 mmol/L (3.5-5.1) CHLORIDE 104 mmol/L (98-107) CARBON DIOXIDE 38 H mmol/L (21-32) CALCIUM 8.3 L mg/dL (8.5-10.1) TOTAL PROTEIN 6.6 g/dL (6.4-8.2) ALBUMIN 3.2 L g/dL (3.3-5.0) BILIRUBIN, TOTAL 1.1 H mg/dL (0.0-1.0) ALKALINE PHOSPHATASE 77 U/L (46-116) AST (SGOT) 16 U/L (15-37) ALT (SGPT) <6 L U/L (12-78) . PROGRESS AND PROCEDURES Discussed case with patient's primary care provider, (call returned 16:27 Dr. Salguero, agreed to admission). Reviewed test results and need for additional work-up. Agreed upon decision to admit. Health care provider will see patient in hospital. Disposition: Condition: stable. CLINICAL IMPRESSION Acute moderate congestive heart failure. Bacterial pneumonia with hypoxemia. Vital signs recorded and reviewed; empiric antibiotics given in the ED. (Electronically signed by Valentino Kiran Dr. 05/17/2016 22:12)
--- NOTE | 2016-05-17 16:28 | ED NURSING NOTES ---
Clinical Report - Nurses [facility] [address] [place] [address] 05/17/2016 11:01 Patient: BINTA GÓMEZ SR TRIAGE Triage time 11:00. Acuity: LEVEL 3. Chief Complaint: CONFUSED. 11:13 05/17/16. Alert. No acute distress. SEPSIS SCREEN: Sepsis Screen. Negative (no infection suspected/documented). Respiratory rate greater than 20. Temperature not greater than 38.3 degrees C (101 degrees F). Heart rate not greater than 90. TRAM COMA SCORE: [place] Coma Scale: 14- eyes open spontaneously (4); best verbal response- disoriented (4); best motor response- obeys commands (6). --11:13 Korey Reyes R.N. 11:05 05/17/16. BP: 141/53. HR: 66. RR: 26. O2 saturation: 93%. Temp: 98.3 F (oral). Pain level now 0/10. --11:13 Korey Reyes R.N. Weight: 84.3 kg stated. Height/Length: 65 inches Per Patient. BMI: 31. --11:06 Korey Reyes R.Tristan. Medications Furosemide Oral. --11:13 Korey Reyes R.N. Ipratropium-Albuterol Inhalation. --11:13 Korey Reyes R.N. Carbidopa-Levodopa Oral. --11:13 Korey Reyes R.NNathalie Mirtazapine Oral. --11:13 Korey Reyes R.N. Rivastigmine Tartrate Oral. --11:13 Korey Reyes R.N. Lisinopril Oral. --11:14 Korey Reyes R.N. Lovastatin Oral. --11:14 Korey Reyes R.N. Aspirin Oral. --11:14 Korey Reyes R.N. Vitamin D Oral. --11:14 Korey Reyes R.N. Metoprolol Succinate ER Oral. --11:14 Korey Reyes R.N. (pcp med list). --11:13 Korey Reyes R.N. Allergies Erythromycin. --11:14 Korey Reyes R.N. History Historian: EMS and family. Primary physician (dom). ( onset of confusion and generalized weakness this morning. FAST exam negative. Per EMS and family Pt is on 2.5 liters oxygen NC at home and family bumped it to 4 liters this morning following sats of 88%. Family states pt has been having visual hallucinations over the past day). This started today. Patient was last known well (2 days ago). 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 EMS treatment MILLINERY TEACHER verbally communicated. BP: 138/61. HR: 60. RR: 24. Temp: 98.9. O2 saturation: 94 % on oxygen (nasal cannula) (at 4 liters/minute). Upon arrival patient awake and confused. SOCIAL HX: Former smoker, end date 1986. No alcohol use or drug use. FALL RISK ASSESSMENT: Fall risk assessment completed. No fall risk identified. NUTRITIONAL RISK ASSESSMENT: The nutritional risk assessment revealed no deficiencies. FUNCTIONAL ASSESSMENT: Functional assessment: no impairments noted. LEARNING NEEDS ASSESSMENT: The learning needs assessment revealed no barriers. SKIN INTEGRITY ASSESSMENT: Skin integrity risk assessment completed. No skin integrity risk identified. --11:13 Korey Reyes R.N. PROBLEMS: Nephrolithiasis. Hyperlipidemia. Hydronephrosis. Abdominal aortic aneurysm. Edema. Chest Wall Pain. Dementia. Depression. Pneumonia. Subconjunctival Hemorrhage. Hypertension. Parkinson's Disease. Ureterolithiasis. --11:16 Korey Reyes R.N. Interventions ID band on patient. To treatment room. --11:13 Korey Reyes R.N. PHYSICAL ASSESSMENT 11:19 05/17/16. GENERAL / NEURO / PSYCH: Alert. Appears in no acute distress. The patient is disoriented to time and situation. Speech within normal limits. RESPIRATORY: Breath sounds within normal limits. CVS: Capillary refill less than 2 seconds. GI / : Abdomen soft and nontender. EXTREMITIES: Lower extremity edema. bilateral trace edema. SKIN: Skin is warm and dry. Normal skin turgor. --11:19 Korey Reyes R.N. NURSING PROGRESS NOTES 11:19 05/17/16. The plan of care for this patient has been created. Oxygen administered by nasal cannula at 4 liters. Patient gowned. Head of bed elevated. Call light placed in reach. Bed placed in lowest position. Brakes of bed on. Patient ready for evaluation- chart flagged. --11:19 Korey Reyes R.N. 12:07 05/17/2016 Site #1 started via IV in the left antecubital space with an 20g angiocath, with aseptic technique and good blood return; one attempt. Blood drawn: rainbow set. Labeled in the presence of the patient and sent to the lab. Saline lock flushed with 10 mL saline. --12:32 Zayda Vaughn R.N. 13:11. ( Lab called to draw 2 blood cultures). --13:14 Perez Zhao 12:30 05/17/16. ( Report received.). --16:53 Zayda aVughn R.N. 13:40 05/17/2016 Lasix IVP 40 mg given over 5 minute(s) via site #1. Allergies verified and confirmed 5 rights. IV patency established. IV site checked: no pain, redness, or swelling. IV flushed thoroughly pre- and post-medication administration. --13:40 Zayda Vaughn R.N. 13:40 05/17/2016 Started 1 gm of Ceftriaxone IVPB in bag #1 50 mL; at 100 mL/hr over 1 hour(s) via site #1 via IV pump. Allergies verified and confirmed 5 rights. IV patency established. IV site checked: no pain, redness, or swelling. IV flushed thoroughly pre- and post-medication administration. --13:40 Zayda Vaughn R.N. 13:40 05/17/2016 Site #2 started via IV in the right antecubital space with an 18g angiocath, with aseptic technique and good blood return; one attempt. Saline lock flushed with 10 mL saline. --17:06 Zayda Vaughn R.N. 14:32 05/17/2016 Ceftriaxone IVPB Discontinued: bag #1 infused. Total amount infused: 50 mL. IV patency established. IV site checked: no pain, redness, or swelling. IV flushed thoroughly. --14:57 Zayda Vaughn R.N. 14:57 05/17/2016 Hydroxyzine IM 25 mg given. Given in the left gluteus jaida. Allergies verified, confirmed 5 rights and sedative warning given to the patient and patient's family. --14:57 Zayda Vaughn R.N. ( H/P forms on chart.). --16:29 LizetteNelsonHermelinda, [place] [address] 14:45 05/17/16. BP: 161/68. HR: 66. RR: 29. O2 saturation: 98% on nasal cannula at 3 liters/minute. 14:00 05/17/16. BP: 137/66. HR: 63. RR: 27. O2 saturation: 92%. Temp: 99 F. 13:30 05/17/16. BP: 148/80. HR: 62. RR: 30. O2 saturation: 93% on nasal cannula at 3 liters/minute. 13:00 05/17/16. BP: 100/51. HR: 65. RR: 18. O2 saturation: 95% on nasal cannula at 3 liters/minute. 12:30 05/17/16. BP: 109/70. HR: 65. RR: 18. O2 saturation: 94% on nasal cannula at 2 liters/minute. --16:59 Zayda Vaughn R.N. 16:45 05/17/16. BP: 148/53. HR: 62. RR: 22. O2 saturation: 94% on nasal cannula at 3 liters/minute. 15:45 05/17/16. BP: 110/70. HR: 65. RR: 24. O2 saturation: 94% on nasal cannula at 3 liters/minute. --17:03 Zayda Vaughn R.N. 14 fr double lumen goddard catheter. Reason for indwelling catheter: patient's decreased level of consciousness. During procedure hand hygiene observed and sterile equipment and aseptic technique used. Return of yellow-colored clear urine; odor is normal; attached to bedside drainage bag positioned below the bladder and secured with velcro and stabilization device. He tolerated procedure well. --17:06 Zayda Vaughn R.N. 17:30 05/17/16. BP: 132/47. HR: 60. RR: 13. O2 saturation: 95% on nasal cannula at 3 liters/minute. 16:45 05/17/16. BP: 148/53. HR: 62. RR: 22. O2 saturation: 94% on nasal cannula at 3 liters/minute. --17:58 Zayda Vaughn R.N. Intake & Output IVPB volume: 50 mL. Urine: 3005 mL, with return of yellow-colored clear urine; odor is normal; attached to bedside drainage bag. --17:04 Zayda Vaughn R.N. Urine: 700 mL, with return of yellow-colored clear urine. --17:58 Zayda Vaughn R.N. DISPOSITION / DISCHARGE Departure time: 17:59 May 17 2016. Admitted to Acute Care. ( Report given to Karol RAHMAN). --17:59 Zayda Vaughn R.N. 17:30 05/17/16. BP: 132/47. HR: 60. RR: 13. O2 saturation: 95% on nasal cannula at 3 liters/minute. --17:59 Zayda Vaughn R.N. Locked/Released at 05/20/2016 19:15 by Zadya Vaughn R.N.
--- NOTE | 2016-05-17 16:28 | ED ORDER SUMMARY ---
..... Patient: BINTA GÓMEZ SR [facility] VisitID: [id number] [address] [place] [address] 86y, M Registration Date/Time: 05/17/2016 ORDER SHEET Weight: 84.3 kg (stated) Allergies: Erythromycin GENERAL ORDERS: Chest 1V Urgent (11:51 05/17/2016 Bhupinder Khalil) (Ack 11:55 KHoerner) (12:02 KHoerner) CBC w Diff Urgent (11:51 05/17/2016 Bhupinder Khalil) (Ack 11:55 STACYoerner) (12:31 LWhalen R.N.) CMP Urgent (11:05/17/2016 Bhupinder Khalil) (Ack 11:55 STACYoerner) (12:31 LWhalen R.N.) UA-Culture if indicated Urgent (11:05/17/2016 Bhupinder Khalil) (Ack 11:55 STACYoerner) (13:36 LWhalen R.N.) PT with INR Urgent (11:51 05/17/2016 Bhupinder Khalil) (Ack 11:55 KHoerner) (12:31 LWhalen R.N.) PTT Urgent (11:05/17/2016 Bhupinder Khalil) (Ack 11:55 KHoerner) (12:31 LWhalen R.N.) BNP Urgent (11:05/17/2016 Bhupinder Khalil) (Ack 11:55 STACYoerner) (12:31 LWhalen R.N.) D-Dimer Urgent (11:51 05/17/2016 Bhupinder Khalil) (Ack 11:55 STACYoerner) (12:31 LWhalen R.N.) CTA Thorax w Cont (No) (20/0.8) Urgent (13:06 05/17/2016 Bhupinder Khalil) (Ack 13:10 STACYoerdevora) (14:28 KHoerner) Blood Culture (Yes) (Unknown) Urgent (13:07 05/17/2016 Bhupinder Khalil) (Ack 13:10 STACYoedai) (13:36 LWhalen R.N.) Lactic Acid for Sepsis Protocol Urgent (13:08 05/17/2016 Bhupinder Khalil) (Ack 13:10 Jessica) (13:36 LWhalen R.N.) PCT (Procalcitonin) Urgent (13:08 05/17/2016 Bhupinder Khalil) (Ack 13:10 Jessica) (13:36 LWhalen R.N.) Maya Catheter (13:08 05/17/2016 Bhupinder Khalil) (Ack 13:10 Jessica) (13:36 LWhalen R.N.) ABG (G) Urgent (13:57 05/17/2016 Bhupinder Khalil) (Ack 14:01 LNations ER Tech1) (14:57 LWhalen R.N.) MEDICATION ORDERS: HydrOXYzine IM 25 mg (NOW, Do not administer intravenously) (14:48 05/17/2016 Bhupinder Khalil) (14:57 LWhalfeliciano R.N.) IV FLUIDS: IV Saline Lock (11:51 05/17/2016 Bhupinder Khalil) (12:32 LWhalfeliciano R.N.) Lasix IV 40 mg (NOW) (13:07 05/17/2016 Bhupinder Khalil) (13:40 LWhalfeliciano R.N.) Ceftriaxone IV 1 gm/50mL (NOW) (13:08 05/17/2016 Bhupinder Khalil) (13:40 LWhalen R.N.) ORDER SHEET NOTES: [Electronically signed by Valentino Kiran Dr. (22:12 05/17/2016)] [Electronically signed by Zayda Vaughn R.N. (19:15 05/20/2016)] [Electronically locked/signed by Zayda Vaughn R.N. (19:15 05/20/2016)]
--- NOTE | 2016-05-17 16:28 | ED ORDER SUMMARY ---
..... Patient: BINTA GÓMEZ SR OrderSheet [facility] VisitID: [id number] [address] [place] [address] 86y, M Registration Date/Time: 05/17/2016 ORDER SHEET Weight: 84.3 kg (stated) Allergies: Erythromycin GENERAL ORDERS: Chest 1V Urgent (11:51 05/17/2016 Bhupinder Khalil) (Ack 11:55 KHoerner) (12:02 KHoerner) CBC w Diff Urgent (11:51 05/17/2016 Bhupinder Khalil) (Ack 11:55 STACYoerner) (12:31 LWhalen R.N.) CMP Urgent (11:05/17/2016 Bhupinder Khalil) (Ack 11:55 STACYoerner) (12:31 LWhalen R.N.) UA-Culture if indicated Urgent (11:05/17/2016 Bhupinder Khalil) (Ack 11:55 STACYoerner) (13:36 LWhalen R.N.) PT with INR Urgent (11:51 05/17/2016 Bhupinder Khalil) (Ack 11:55 KHoerner) (12:31 LWhalen R.N.) PTT Urgent (11:05/17/2016 Bhupinder Khalil) (Ack 11:55 KHoerner) (12:31 LWhalen R.N.) BNP Urgent (11:05/17/2016 Bhupinder Khalil) (Ack 11:55 STACYoerner) (12:31 LWhalen R.N.) D-Dimer Urgent (11:51 05/17/2016 Bhupinder Khalil) (Ack 11:55 STACYoerner) (12:31 LWhalen R.N.) CTA Thorax w Cont (No) (20/0.8) Urgent (13:06 05/17/2016 Bhupinder Khalil) (Ack 13:10 STACYoerdevora) (14:28 KHoerner) Blood Culture (Yes) (Unknown) Urgent (13:07 05/17/2016 Bhupinder Khalil) (Ack 13:10 STACYoedai) (13:36 LWhalen R.N.) Lactic Acid for Sepsis Protocol Urgent (13:08 05/17/2016 Bhupinder Khalil) (Ack 13:10 Jessica) (13:36 LWhalen R.N.) PCT (Procalcitonin) Urgent (13:08 05/17/2016 Bhupinder Khalil) (Ack 13:10 Jessica) (13:36 LWhalen R.N.) Maya Catheter (13:08 05/17/2016 Bhupinder Khalil) (Ack 13:10 Jessica) (13:36 LWhalen R.N.) ABG (G) Urgent (13:57 05/17/2016 Bhupinder Khalil) (Ack 14:01 LNations ER Tech1) (14:57 LWhalen R.N.) MEDICATION ORDERS: HydrOXYzine IM 25 mg (NOW, Do not administer intravenously) (14:48 05/17/2016 Bhupinder Khalil) (14:57 LWhalfeliciano R.N.) IV FLUIDS: IV Saline Lock (11:51 05/17/2016 Bhupinder Khalil) (12:32 LWhalfeliciano R.N.) Lasix IV 40 mg (NOW) (13:07 05/17/2016 Bhupinder Khalil) (13:40 LWhalfeliciano R.N.) Ceftriaxone IV 1 gm/50mL (NOW) (13:08 05/17/2016 Buhpinder Khalil) (13:40 LWhalen R.N.) ORDER SHEET NOTES: [Electronically signed by Valentino Kiran Dr. (22:12 05/17/2016)] [Electronically signed by Zayda Vaughn R.N. (19:15 05/20/2016)] [Electronically locked/signed by Zayda Vaughn R.N. (19:15 05/20/2016)]
--- NOTE | 2016-05-17 17:04 | DIAGNOSTIC IMAGING REPORT ---
PROCEDURE: CTA THORAX WITH CONTRAST INDICATION: SHORTNESS OF BREATH TECHNIQUE: 95 ml of Isovue 370 was injected intravenously and axial images were obtained of the entire thorax with 3D sagittal and coronal MIP reconstructions. COMPARISON: Chest x-ray 05/17/2016 FINDINGS: Prominent breathing artifacts. There are no central pulmonary emboli but tiny peripheral emboli cannot be excluded. Small right lower lobe infiltrate. Mild right upper lobe and left basilar atelectasis. Lingular scarring. Mild left hilar adenopathy. Mild bilateral pleural effusions. No aortic dissection or aneurysm. Coronary atherosclerosis. Mild cardiomegaly. Hepatic cysts, largest 4.9 cm. Large hiatal hernia. Severe degenerative changes of the spine. IMPRESSION: 1. Prominent breathing artifacts 2. There are no central pulmonary emboli but cannot exclude tiny peripheral emboli 3. Small right lower lobe infiltrate with mild right upper and left lower lobe atelectasis 3. Mild bilateral pleural effusions with cardiomegaly suggestive of mild CHF/fluid overload 4. Large hiatal hernia 5. Results discussed with Dr. Kiran
[2016-05-17 18:26] VITALS: BP 117/79
[2016-05-17 22:19] VITALS: BP 122/64
[2016-05-18] MEDS ORDERED: FUROSEMIDE20 MG PO (02:39)
[2016-05-18] MEDS ORDERED: ALBUTEROL2.5 MG/3 M IN (02:41)
[2016-05-18] MEDS ORDERED: ASPIRIN 81 LOW81 MG PO (02:42)
[2016-05-18] MEDS ORDERED: [UNRECOGNIZED DRUG - CODE] PO (02:45)
[2016-05-18 02:53] VITALS: BP 127/50
[2016-05-18 06:37] VITALS: BP 199/161; BP 87/54
--- NOTE | 2016-05-18 06:59 | Progress Note ---
Subjective General 86yo admitted with recurrent pneumonia. Had pmneumonia in March which resolved clinically but with right basilar scarrimng vs infiltrate on cxr 05/10 in right base. Admitted with exacerbation of CHF and diuresed in ER. Pt confused and agitated, hallucinating on admit and became lethargic post vistaril for CTA which was benign. Sleepy since. Rouses a bit to command and grunts indefinite answers on questioning. Physical Exam Vital Signs / I&Os Vital Signs Date Time Temp Pulse Resp B/P Pulse O2 O2 Flow FiO2 Ox Delivery Rate 05/18 0637 98.2 74 18 87/54 94 Nasal 4.0 Cannula 05/18 0253 98.4 58 18 127/50 98 Nasal 4.0 Cannula 05/18 0223 Nasal 3.0 Cannula 05/17 2219 99.0 61 20 122/64 93 Nasal 2.0 Cannula 05/17 2140 2.0 05/17 2045 Nasal 2.5 Cannula 05/17 1848 2.5 05/17 1826 99.3 58 24 117/79 91 Nasal 3.0 Cannula 05/17 1454 3.0 I&O 05/17 0800 05/17 1600 05/18 0000 Intake Total Output Total 500 Balance -500 General Appearance No acute distress, Sleepy. Lungs Crackles in bases. Cardiovascular Regular rate and rhythm Abdomen Normal bowel sounds, Soft, No tenderness Extremities No edema LAB Results Laboratory Tests 05/17 05/17 05/17 1115 1115 1150 Chemistry Plasma Sodium (136 - 145 mmol/L) 145 Plasma Potassium (3.5 - 5.1 mmol/L) 4.6 Plasma Chloride (98 - 107 mmol/L) 104 CO2 (Enzymatic) (21 - 32 mmol/L) 38 BUN (7 - 18 mg/dL) 20 Creatinine (0.6 - 1.3 mg/dL) 0.8 Est GFR ( Amer) (mL/min) >60 Est GFR (Non-Af Amer) (mL/min) >60 Glucose (70 - 110 mg/dL) 95 Plasma Calcium (8.5 - 10.1 mg/dL) 8.3 Total Bilirubin (0.0 - 1.0 mg/dL) 1.1 AST (15 - 37 U/L) 16 ALT (12 - 78 U/L) <6 Alkaline Phosphatase (46 - 116 U/L) 77 B-Natriuretic Peptide (5 - 100 pg/ml) 1080 Total Protein (6.4 - 8.2 g/dL) 6.6 Albumin (3.3 - 5.0 g/dL) 3.2 Procalcitonin (0 - 0.5 ng/mL) < 0.05 Coagulation INR (0.8 - 1.2) 1.1 APTT (24 - 34 SECONDS) 31 D-Dimer, Quantitative (0.27 - 0.52 ug/mLFEU) 1.89 Hematology WBC (4.5 - 11.5 K/uL) 6.4 RBC (4.50 - 5.90 M/uL) 4.58 Hgb (13.5 - 17.5 gm/dL) 13.8 Hct (41.0 - 53.0 %) 43.1 MCV (80 - 100 fL) 94 MCH (26 - 34 pg) 30 RDW (11.6 - 14.8 %) 16.6 Neut % (Auto) (50 - 75 %) 73.5 Lymph % (Auto) (25 - 40 %) 15.5 [place] % (Auto) (3 - 14 %) 8.5 Eos % (Auto) (0 - 4 %) 2.2 Baso % (Auto) (0 - 2 %) 0.3 Plt Count, EDTA (150 - 400 K/uL) 197 PUBS MCHC (31 - 37 g/dL) 32 05/17 05/17 05/17 05/18 1340 1345 1357 0515 Blood Gas Sample Site LB Total CO2 (24.0 - 30.0 mmol/L) 43.6 ABG pH (7.35 - 7.45) 7.33 ABG pCO2 at Pt Temp (35 - 45 mmHg) 78.7 ABG pO2 at Pt Temp (60.0 - 80.0 mmHg) 74.6 ABG HCO3 (20.0 - 26.0 mmol/L) 41.2 ABG O2 Sat Calc/[place] (95.1 - 100.0 %) 95.3 ABG Base Excess (-6.0 - -6.0 mmol/L) 13.3 ABG Reduced Hgb (%) 4.6 ABG Carboxyhemoglobin (0.5 - 1.5 %) 2.6 ABG Methemoglobin (0.4 - 1.5 %) 0.0 Barry Test YES Other Total Hgb (14.0 - 18.0 g/dL) 13.3 A-a O2 Gradient (7.0 - 14.0 mmHg) 64.3 Hgb O2 Saturation (95.0 - 100.0 %) 92.8 Temperature (C) 37 O2 Liters/Min (0 - 20 L/MIN) 3 Vent Mode NC FiO2 (20 - 101 %) 32 Chemistry Plasma Sodium (136 - 145 mmol/L) 148 Plasma Potassium (3.5 - 5.1 mmol/L) 4.4 Plasma Chloride (98 - 107 mmol/L) 106 CO2 (Enzymatic) (21 - 32 mmol/L) 42 BUN (7 - 18 mg/dL) 18 Creatinine (0.6 - 1.3 mg/dL) 0.7 Est GFR ( Amer) (mL/min) >60 Est GFR (Non-Af Amer) (mL/min) >60 Glucose (70 - 110 mg/dL) 110 Lactic Acid (0.4 - 2.0 mmol/L) 0.8 Plasma Calcium (8.5 - 10.1 mg/dL) 8.0 Plasma Magnesium (1.8 - 2.4 mg/dL) 1.9 Total Bilirubin (0.0 - 1.0 mg/dL) 0.9 AST (15 - 37 U/L) 13 ALT (12 - 78 U/L) 6 Alkaline Phosphatase (46 - 116 U/L) 67 Total Protein (6.4 - 8.2 g/dL) 5.8 Albumin (3.3 - 5.0 g/dL) 2.8 Hematology WBC (4.5 - 11.5 K/uL) 6.0 RBC (4.50 - 5.90 M/uL) 4.34 Hgb (13.5 - 17.5 gm/dL) 13.0 Hct (41.0 - 53.0 %) 40.9 MCV (80 - 100 fL) 94 MCH (26 - 34 pg) 30 RDW (11.6 - 14.8 %) 16.5 Neut % (Auto) (50 - 75 %) 71.2 Lymph % (Auto) (25 - 40 %) 15.7 [place] % (Auto) (3 - 14 %) 10.6 Eos % (Auto) (0 - 4 %) 2.3 Baso % (Auto) (0 - 2 %) 0.2 Plt Count, EDTA (150 - 400 K/uL) 174 PUBS MCHC (31 - 37 g/dL) 32 Urines Urine Color TAMMY Urine Appearance CLEAR Urine pH (5.0 - 8.0) 6.0 Ur Specific [place] (1.010 - 1.030) >= 1.030 Urine Protein (NEGATIVE) TRACE Urine Ketones (NEGATIVE) NEGATIVE Urine Blood (NEGATIVE) NEGATIVE Urine Nitrite (NEGATIVE) NEGATIVE Urine Bilirubin (NEGATIVE) NEGATIVE Urine Urobilinogen (0.2 - 1.0 EU/dL) 2.0 Ur Leukocyte Esterase (NEGATIVE) NEGATIVE Urine RBC (0 - 1 rbc/hpf) 1-3 Urine WBC (0 - 1 wbc/hpf) NONE SEEN Ur Epithelial Cells (0 - 5 EPI/hpf) NONE SEEN Urine Bacteria (NONE SEEN) NONE SEEN Urine Glucose (NEGATIVE) NEGATIVE Urine Comment CULT NOT INDICATED 05/18 0515 Chemistry B-Natriuretic Peptide (5 - 100 pg/ml) 566 Microbiology Date/Time Procedure - Status Source Growth 05/17 1320 Blood Culture - RECD BLOOD 05/17 1310 Blood Culture - RECD BLOOD Assessment and Plan Problem List 1. Pneumonia Plan On antibiotic therapy 2. Hypoxemia Plan Improving with O2 and treatment. 3. CHF exacerbation Plan Diuresing well with decreased bnp.
--- NOTE | 2016-05-18 07:41 | HISTORY AND PHYSICAL ---
ADMITTED: 05/17/2016 CHIEF COMPLAINT: 1. Weakness 2. Confusion HISTORY OF PRESENT ILLNESS: An 86-year-old male brought to emergency department by EMS because of increasing weakness and confusion on the day of admission. Family noticed this problem and called 911 and EMS transported the patient to the emergency department. The patient had been on 2.5 liters of oxygen per nasal cannula at home and the family had increased it to 4 liters because of decreased oxygen saturation into the 80s. The patient was also reported to be having hallucinations with confusion, seeing things that are not there. He had been well prior to the day of admission. MEDICAL/SURGICAL HISTORY: Remarkable for pneumonia, bacterial, recently treated last month. Depression, dementia, dependent edema, Parkinson's disease, abdominal aortic aneurysm, hydronephrosis, hyperlipidemia, hypertension, and nephrolithiasis. Additionally, the patient has had a history of sleep apnea and diverticulitis. Surgeries: Back surgery and TURP (prostate surgery). MEDICATIONS: 1. Nebulized albuterol/ipratropium q.i.d. p.r.n. 2. Carbidopa/levodopa 25/100 mg 1 p.o. q.i.d. 3. Mirtazapine 15 mg 1 p.o. at bedtime. 4. Tessalon Perles p.r.n. cough one q.8 hours. 5. Rivastigmine tartrate 1.5 mg p.o. b.i.d. 6. Lisinopril 10 mg p.o. daily. 7. Lovastatin 40 mg p.o. daily. 8. Aspirin 81 mg p.o. daily. 9. Vitamin D 2000 units p.o. daily. ALLERGIES: 1. ERYTHROMYCIN. 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 was recently hospitalized and discharged to home 1 day prior to the patient's illness. FAMILY HISTORY: Positive for family history of colon cancer, diabetes, heart disease, stroke and Parkinson's. REVIEW OF SYSTEMS: The patient is unable to give a significant history due to confusion. History is obtained primarily from daughters. General: There is a positive history of fatigue but fever and chills are denied. HEENT: The patient has had mild hearing loss in the past and somewhat poor vision, but no recent changes, denies URI, sore throat. Respiratory: Shortness of breath as noted above, the patient has occasional chronic cough. Denies any increased cough or increased phlegm production or wheezing. Cardiovascular: Denies chest pain, palpitations, paroxysmal nocturnal dyspnea. Gastrointestinal: Denies nausea, vomiting, diarrhea, or constipation. Genitourinary: Denies dysuria, hematuria, or recent increased frequency. Neurologic: Positive for confusion and hallucinations. Denies any localized weakness. PHYSICAL EXAMINATION: VITAL SIGNS: GENERAL: HEENT: CHEST: HEART: ABDOMEN: PELVIRECTAL: EXTREMITIES: NEUROLOGIC: LAB/IMAGING: WBC 6.4, hemoglobin 13.8, hematocrit 43.1, platelets 197, sodium 145, potassium 4.6, chloride 104, bicarbonate 38, BUN 20, creatinine 0.8, calcium 8.3 , total bilirubin 1.1, ALT less than 6. BNP 1080, albumin 3.2. INR 1.1. D-dimer 1.89. ABG shows a pCO2 of 43.6, pH 7.33, pCO2 adjusted for temperature 78.7, pO2 74.6, bicarbonate 41.2, base excess 13.3. Urinalysis reveals specific gravity 1.030, pH 6.0. Chest x-ray reveals bilateral infiltrates. The patient has had an old right lower infiltrate on comparison. This is increased with some effusion. There is a new left lower lobe infiltrate. CT angiogram was obtained to evaluate positive D-dimer. This shows no central pulmonary emboli, small right lower lobe infiltrate with mild right upper and left lower lobe atelectasis, mild bilateral pleural effusions consistent with mild fluid overload. IMPRESSION: 1. Congestive heart failure, acute exacerbation 2. Pneumonia, bilateral 3. Dementia 4. Parkinson's disease 5. Hypertension 6. Hyperlipidemia PLAN: Admit to [facility] for IV antibiotics, IV diuresis, and monitoring of fluid status. Plan of care was discussed with family members and also advanced directives were discussed. The patient requests and family confirms DO NOT RESUSCITATE status.
[2016-05-18 10:35] VITALS: BP 113/42
[2016-05-18 15:35] VITALS: BP 136/70
[2016-05-18 18:16] VITALS: BP 118/49
[2016-05-18 22:12] VITALS: BP 111/77
[2016-05-19] VITALS (12 sets, daily range): BP systolic 97–152; BP diastolic 47–83
--- NOTE | 2016-05-19 07:22 | Progress Note ---
Subjective General 86yo admitted with recurrent pneumonia. Had pmneumonia in March which resolved clinically but with right basilar scarrimng vs infiltrate on cxr 05/10 in right base. Admitted with exacerbation of CHF and diuresed in ER. Pt confused and agitated, hallucinating on admit and became lethargic post vistaril for CTA which was benign. nOW ALERT AND BECAME AGITATED DURING THE NIGHT.Denies pain or sob or nausea/ vomiting. During night kept taking O2 off, then desaturated and got tachy with afib with HR to 150, treated with prn IV metoprolol with good effect. Pt also pulled out his goddard and then passed blood with urine through the night. Denies genital pain or dysuria. Wants to go home but appears to understand and agree when told that he has pneumonia and CHF and needs to stay in hospital for treatment. Son in law present and agrees with plan. Physical Exam Vital Signs / I&Os Vital Signs Date Time Temp Pulse Resp B/P Pulse O2 O2 Flow FiO2 Ox Delivery Rate 05/19 0624 98.2 94 20 122/71 94 Nasal 4.0 Cannula 05/19 0401 101 20 135/64 92 Nasal 4.0 Cannula 05/19 0215 99.1 60 18 101/69 97 Nasal 4.0 Cannula 05/19 0002 102 128/57 05/19 0000 Nasal 4.0 Cannula 05/18 2319 4.0 05/18 2212 98.1 96 18 111/77 91 Nasal 4.0 Cannula 05/18 1816 98.4 76 18 118/49 90 Nasal 4.0 Cannula 05/18 1630 Nasal 4.0 Cannula 05/18 1535 97.3 90 18 136/70 90 Nasal 4.0 Cannula 05/18 1035 98.4 57 17 113/42 95 Nasal 4.0 Cannula 05/18 0850 Nasal 4.0 Cannula I&O 05/18 0800 05/18 1600 05/19 0000 Intake Total 967 1967 100 Output Total 550 1950 550 Balance 417 17 -450 General Appearance Alert, No acute distress, Forgetful. Lungs Basilar crackles. Cardiovascular Regular rate and rhythm Abdomen Normal bowel sounds, Soft, No tenderness Extremities No edema Skin No Rashes Neurological No lateralizing signs, Forgetful and confused. LAB Results Laboratory Tests 05/19 05/19 0200 0200 Chemistry Plasma Sodium (136 - 145 mmol/L) 146 Plasma Potassium (3.5 - 5.1 mmol/L) 4.4 Plasma Chloride (98 - 107 mmol/L) 105 CO2 (Enzymatic) (21 - 32 mmol/L) 41 BUN (7 - 18 mg/dL) 22 Creatinine (0.6 - 1.3 mg/dL) 0.9 Est GFR ( Amer) (mL/min) >60 Est GFR (Non-Af Amer) (mL/min) >60 Glucose (70 - 110 mg/dL) 133 Plasma Calcium (8.5 - 10.1 mg/dL) 7.8 Plasma Magnesium (1.8 - 2.4 mg/dL) 1.6 Total Bilirubin (0.0 - 1.0 mg/dL) 1.0 AST (15 - 37 U/L) 13 ALT (12 - 78 U/L) <6 Alkaline Phosphatase (46 - 116 U/L) 61 B-Natriuretic Peptide (5 - 100 pg/ml) 443 Total Protein (6.4 - 8.2 g/dL) 5.7 Albumin (3.3 - 5.0 g/dL) 2.5 Hematology WBC (4.5 - 11.5 K/uL) 8.2 RBC (4.50 - 5.90 M/uL) 4.14 Hgb (13.5 - 17.5 gm/dL) 12.5 Hct (41.0 - 53.0 %) 38.9 MCV (80 - 100 fL) 94 MCH (26 - 34 pg) 30 RDW (11.6 - 14.8 %) 16.2 Neut % (Auto) (50 - 75 %) 76.7 Lymph % (Auto) (25 - 40 %) 10.7 [place] % (Auto) (3 - 14 %) 11.1 Eos % (Auto) (0 - 4 %) 1.0 Baso % (Auto) (0 - 2 %) 0.5 Plt Count, EDTA (150 - 400 K/uL) 168 PUBS MCHC (31 - 37 g/dL) 32 Assessment and Plan Problem List 1. Hypoxemia Plan Controlled with O2 but pt pulls it off at times. 2. Pneumonia Plan Improving with antibiotics. 3. CHF exacerbation Plan Diuresisng slowly with improving BNP. Goddard taken out by pt with some trauma. Will get bladder scan. 4. Atrial fibrillation Plan Resolved with prn IV metoprolol. Will start low dose po metoprolol.
[2016-05-20 02:24] VITALS: BP 123/62
[2016-05-20 07:11] VITALS: BP 132/50
--- NOTE | 2016-05-20 09:20 | Progress Note ---
Subjective General 86yo admitted with recurrent pneumonia. Pneumonia in March resolved clinically but with right basilar scarring vs infiltrate on cxr 05/10 in right base. Admitted with exacerbation of CHF and diuresed in ER. Pt confused and agitated, hallucinating on admit and became lethargic post vistaril for CTA which was benign. Son in law reports hallucinations during night where he thought his cows were in the [place] and needing feeding. Denies pain or sob or nausea/vomiting. Voiding OK without goddard which he pulled out. Tolerating po intake. Requiring two person assist to transfer. Physical Exam Vital Signs / I&Os Vital Signs Date Time Temp Pulse Resp B/P Pulse O2 O2 Flow FiO2 Ox Delivery Rate 05/20 0812 Nasal 4.0 Cannula 05/20 0738 4.0 05/20 0711 98.2 73 20 132/50 94 Nasal 4.0 Cannula 05/20 0224 99.5 80 18 123/62 97 Nasal 4.0 Cannula 05/20 0028 Nasal 4.0 Cannula 05/19 2128 98.4 66 18 108/68 97 Nasal 4.0 Cannula 05/19 2024 4.0 05/19 2004 143/76 05/19 1926 97/50 05/19 1840 98.1 94 18 110/47 96 Nasal 4.0 Cannula 05/19 1628 155 118/76 05/19 1537 Nasal 4.0 Cannula 05/19 1427 97.9 73 18 152/70 93 Nasal 4.0 Cannula 05/19 1207 98.4 65 21 145/83 93 Nasal 4.0 Cannula I&O 05/19 0800 05/19 1600 05/20 0000 Intake Total 1711 800 949 Output Total 50 1420 285 Balance 1661 -620 664 General Appearance Alert, No acute distress, Oriented to hospital but thinks it is [place]. Lungs Crackles in bases. Cardiovascular Regular rate and rhythm Abdomen Soft, No tenderness Extremities No edema LAB Results Laboratory Tests 05/20 05/20 0505 0505 Chemistry Plasma Sodium (136 - 145 mmol/L) 146 Plasma Potassium (3.5 - 5.1 mmol/L) 4.3 Plasma Chloride (98 - 107 mmol/L) 106 CO2 (Enzymatic) (21 - 32 mmol/L) 41 BUN (7 - 18 mg/dL) 24 Creatinine (0.6 - 1.3 mg/dL) 0.7 Est GFR ( Amer) (mL/min) >60 Est GFR (Non-Af Amer) (mL/min) >60 Glucose (70 - 110 mg/dL) 98 Plasma Calcium (8.5 - 10.1 mg/dL) 8.0 Plasma Magnesium (1.8 - 2.4 mg/dL) 1.9 Total Bilirubin (0.0 - 1.0 mg/dL) 0.9 AST (15 - 37 U/L) 13 ALT (12 - 78 U/L) <6 Alkaline Phosphatase (46 - 116 U/L) 53 B-Natriuretic Peptide (5 - 100 pg/ml) 476 Total Protein (6.4 - 8.2 g/dL) 5.9 Albumin (3.3 - 5.0 g/dL) 2.5 Hematology WBC (4.5 - 11.5 K/uL) 6.8 RBC (4.50 - 5.90 M/uL) 4.04 Hgb (13.5 - 17.5 gm/dL) 12.2 Hct (41.0 - 53.0 %) 38.1 MCV (80 - 100 fL) 94 MCH (26 - 34 pg) 30 RDW (11.6 - 14.8 %) 16.7 Neut % (Auto) (50 - 75 %) 64.3 Lymph % (Auto) (25 - 40 %) 18.8 [place] % (Auto) (3 - 14 %) 11.8 Eos % (Auto) (0 - 4 %) 4.9 Baso % (Auto) (0 - 2 %) 0.2 Plt Count, EDTA (150 - 400 K/uL) 163 PUBS MCHC (31 - 37 g/dL) 32 Assessment and Plan Problem List 1. Pneumonia Plan Improving on antibiotics. Will check cxr. 2. CHF exacerbation Plan Improved with lasix. 3. Weakness Plan Improving slowly. 4. Atrial fibrillation Plan controlled with meds.
[2016-05-20 11:09] VITALS: BP 130/34
[2016-05-20 14:30] VITALS: BP 196/52; BP 96/52
[2016-05-20 18:54] VITALS: BP 103/29
--- NOTE | 2016-05-20 19:16 | ED MED RECONCILIATION SUMMARY ---
Patient: BINTA GÓMEZ SR Medication Reconciliation Report [facility] VisitID: [id number] [address] [place] [address] 86y, M Registration Date/Time: 05/17/2016 Weight: 84.3 kg Height/Length: 65 in. BMI: 31.0 ALLERGIES: Erythromycin The patient's Home Medications are listed below: THE FOLLOWING MEDICATIONS NEED TO BE RECONCILED: Aspirin Oral Carbidopa-Levodopa Oral Furosemide Oral Ipratropium-Albuterol Inhalation Lisinopril Oral Lovastatin Oral Metoprolol Succinate ER Oral Mirtazapine Oral Rivastigmine Tartrate Oral Vitamin D Oral The source(s) of the original Home Medication information: pcp med list The following Medications were given to the patient in the Emergency Department: Lasix [IVP] IVP 40 mg, administered: 05/17/2016 1:40:00 PM Ceftriaxone [IVPB] IVPB bolus 0, then 1 gm 100 mL/hr, administered: 05/17/2016 1:40:00 PM Hydroxyzine [IM] IM 25 mg, administered: 05/17/2016 2:57:00 PM The following Medications were prescribed to the patient: None.
--- NOTE | 2016-05-20 19:16 | ED DISCHARGE INSTRUCTIONS ---
Patient: BINTA GÓMEZ SR General Instructions [facility] VisitID: [id number] [address] [place] [address] 86y, M Registration Date/Time: 05/17/2016 Acute moderate congestive heart failure. Bacterial pneumonia with hypoxemia. Vital signs recorded and reviewed; empiric antibiotics given in the ED. (Electronically signed by Valentino Kiran Dr. 05/17/2016 22:12)
--- NOTE | 2016-05-20 19:16 | ED MED RECONCILIATION SUMMARY ---
Patient: BINTA GÓMEZ SR Medication Reconciliation Report [facility] VisitID: [id number] [address] [place] [address] 86y, M Registration Date/Time: 05/17/2016 Weight: 84.3 kg Height/Length: 65 in. BMI: 31.0 ALLERGIES: Erythromycin The patient's Home Medications are listed below: THE FOLLOWING MEDICATIONS NEED TO BE RECONCILED: Aspirin Oral Carbidopa-Levodopa Oral Furosemide Oral Ipratropium-Albuterol Inhalation Lisinopril Oral Lovastatin Oral Metoprolol Succinate ER Oral Mirtazapine Oral Rivastigmine Tartrate Oral Vitamin D Oral The source(s) of the original Home Medication information: pcp med list The following Medications were given to the patient in the Emergency Department: Lasix [IVP] IVP 40 mg, administered: 05/17/2016 1:40:00 PM Ceftriaxone [IVPB] IVPB bolus 0, then 1 gm 100 mL/hr, administered: 05/17/2016 1:40:00 PM Hydroxyzine [IM] IM 25 mg, administered: 05/17/2016 2:57:00 PM The following Medications were prescribed to the patient: None.
--- NOTE | 2016-05-20 19:16 | ED MAR SUMMARY ---
..... Medication Administration Record [facility] [address] [place] [address] Patient: BINTA GÓMEZ Visit ID: [id number] 86y, M Weight: 84.3 kg Height/Length: 65 in BMI: 31 ALLERGIES: Erythromycin Given 13:40 05/17/2016 Zayda Vaguhn R.N. Medication Administered: LASIX [IVP], Dose: 40 mg IVP over 5 minute(s), Site: #1 left AC. Medication Ordered: Lasix IV 40 mg (NOW). Start 13:40 05/17/2016 Zayda Vaughn R.N., Stop 14:32 05/17/2016 Zayda Vaughn R.N. Medication Administered: CEFTRIAXONE [IVPB], Dose: 1 gm IVPB over 1 hour(s), Rate: 100 mL/hr, Dispensed: 50 mL bag, Site: #1 left AC. Medication Ordered: Ceftriaxone IV 1 gm/50mL (NOW). Given 14:57 05/17/2016 Zayda Vaughn R.N. Medication Administered: HYDROXYZINE [IM], Dose: 25 mg IM. Medication Ordered: HydrOXYzine IM 25 mg (NOW, Do not administer intravenously).
--- NOTE | 2016-05-20 19:16 | ED MAR SUMMARY ---
..... Medication Administration Record [facility] [address] [place] [address] Patient: BINTA GÓMEZ Visit ID: [id number] 86y, M Weight: 84.3 kg Height/Length: 65 in BMI: 31 ALLERGIES: Erythromycin Given 13:40 05/17/2016 Zayda Vaughn R.N. Medication Administered: LASIX [IVP], Dose: 40 mg IVP over 5 minute(s), Site: #1 left AC. Medication Ordered: Lasix IV 40 mg (NOW). Start 13:40 05/17/2016 Zayda Vaughn R.N., Stop 14:32 05/17/2016 Zayda Vaughn R.N. Medication Administered: CEFTRIAXONE [IVPB], Dose: 1 gm IVPB over 1 hour(s), Rate: 100 mL/hr, Dispensed: 50 mL bag, Site: #1 left AC. Medication Ordered: Ceftriaxone IV 1 gm/50mL (NOW). Given 14:57 05/17/2016 Zayda Vaughn R.N. Medication Administered: HYDROXYZINE [IM], Dose: 25 mg IM. Medication Ordered: HydrOXYzine IM 25 mg (NOW, Do not administer intravenously).
--- NOTE | 2016-05-20 19:16 | ED DISCHARGE INSTRUCTIONS ---
Patient: BINTA GÓMEZ SR General Instructions [facility] VisitID: [id number] [address] [place] [address] 86y, M Registration Date/Time: 05/17/2016 Acute moderate congestive heart failure. Bacterial pneumonia with hypoxemia. Vital signs recorded and reviewed; empiric antibiotics given in the ED. (Electronically signed by Valentino Kiran Dr. 05/17/2016 22:12)
[2016-05-20 22:51] VITALS: BP 100/56
[2016-05-21 02:05] VITALS: BP 114/55
[2016-05-21 02:28] VITALS: BP 116/52
--- NOTE | 2016-05-21 06:26 | DIAGNOSTIC IMAGING REPORT ---
PROCEDURE: XR CHEST 1 VIEW INDICATION: Mild CHF and possible pneumonia. TECHNIQUE: Portable AP view 0550 hours. COMPARISON: Compared to chest x-ray on 05/17/2016. FINDINGS: Allowing for suboptimal inspiration, there has been mild improvement with resolving pulmonary edema and congestion. There are mild persistent parenchymal change at the lung bases. Mild to moderate cardiomegaly. Moderate hiatal hernia. Mediastinum is otherwise normal. Thorax is unchanged. IMPRESSION: 1. Mild improvement with resolving congestive failure and pulmonary edema. 2. Persistent mild parenchymal changes at the lung bases compatible with pneumonia. 3. Mild to moderate cardiomegaly. 4. Moderate hiatal hernia.
[2016-05-21 06:50] VITALS: BP 140/59
--- NOTE | 2016-05-21 09:14 | Progress Note ---
Subjective General 86yo admitted with recurrent pneumonia. Pneumonia in March resolved clinically but with right basilar scarring vs infiltrate on cxr 05/10 in right base. Admitted with exacerbation of CHF and diuresed in ER. Pt confused and agitated, hallucinating on admit and became lethargic post vistaril for CTA which was benign. Pt also confused on second hospital night. Will discontinue remeron as it may be sedating and confusing him. On questioning pt answers questions about remote history well but is not oriented to current events. He denies cp/palp/sob nausea or vomiting. Physical Exam Vital Signs / I&Os Vital Signs Date Time Temp Pulse Resp B/P Pulse O2 O2 Flow FiO2 Ox Delivery Rate 05/21 0650 98.1 94 20 140/59 98 Nasal 3.5 Cannula 05/21 0300 Nasal 3.5 Cannula 05/21 0228 98.2 73 16 116/52 98 Nasal 3.5 Cannula 05/21 0205 98.1 73 18 114/55 92 Nasal 3.5 Cannula 05/20 2251 98.1 87 18 100/56 92 Nasal 3.5 Cannula 05/20 2113 3.0 05/20 1854 98.4 86 18 103/29 96 Nasal 3.0 Cannula 05/20 1552 Nasal 3.0 Cannula 05/20 1430 100.4 84 18 96/52 91 Nasal 3.0 Cannula 05/20 1109 97.7 20 130/34 96 Nasal 3.0 Cannula I&O 05/20 0800 05/20 1600 05/21 0000 Intake Total 221 696 120 Output Total 195 601 213 Balance 26 95 -93 General Appearance Alert, Cooperative, No acute distress Lungs Crackles in bases. Cardiovascular Regular rate and rhythm Abdomen Normal bowel sounds, Soft, No tenderness Extremities No cyanosis, No clubbing, No edema Skin No Rashes LAB Results Laboratory Tests 05/21 05/21 0837 0837 Chemistry Plasma Sodium (136 - 145 mmol/L) 145 Plasma Potassium (3.5 - 5.1 mmol/L) 4.5 Plasma Chloride (98 - 107 mmol/L) 102 CO2 (Enzymatic) (21 - 32 mmol/L) Pending BUN (7 - 18 mg/dL) 32 Creatinine (0.6 - 1.3 mg/dL) 1.1 Est GFR ( Amer) (mL/min) >60 Est GFR (Non-Af Amer) (mL/min) >60 Glucose (70 - 110 mg/dL) 106 Plasma Calcium (8.5 - 10.1 mg/dL) 8.1 Plasma Magnesium (1.8 - 2.4 mg/dL) 1.8 Total Bilirubin (0.0 - 1.0 mg/dL) 0.7 AST (15 - 37 U/L) 12 ALT (12 - 78 U/L) <6 Alkaline Phosphatase (46 - 116 U/L) 54 B-Natriuretic Peptide Pending Total Protein (6.4 - 8.2 g/dL) 6.1 Albumin (3.3 - 5.0 g/dL) 2.6 Hematology WBC (4.5 - 11.5 K/uL) 7.3 RBC (4.50 - 5.90 M/uL) 4.18 Hgb (13.5 - 17.5 gm/dL) 12.6 Hct (41.0 - 53.0 %) 39.6 MCV (80 - 100 fL) 95 MCH (26 - 34 pg) 30 RDW (11.6 - 14.8 %) 16.3 Neut % (Auto) (50 - 75 %) 79.4 Lymph % (Auto) (25 - 40 %) 11.0 [place] % (Auto) (3 - 14 %) 8.6 Eos % (Auto) (0 - 4 %) 0.7 Baso % (Auto) (0 - 2 %) 0.3 Plt Count, EDTA (150 - 400 K/uL) 185 PUBS MCHC (31 - 37 g/dL) 32 Assessment and Plan Problem List 1. CHF exacerbation Plan Improving per labs and CXR and exam, yet pt remains weak and confused. 2. Pneumonia Plan Improving on exam and CXR. Will continue antibiotics.
[2016-05-21] MEDS ORDERED: CEPHALEXIN500 MG PO (10:33)
--- NOTE | 2016-05-21 10:41 | Provider's Discharge Care Plan ---
Problem, Goal, Plan Problem List 1. CHF exacerbation Goals: Improve disease control Instructions: Take meds as directed 2. Atrial fibrillation Goals: Improve disease control Instructions: Take meds as directed 3. Pneumonia Goals: Improve disease control Instructions: Take meds as directed
[2016-05-21] MEDS ORDERED: FUROSEMIDE40 MG PO (10:45)
--- NOTE | 2016-05-21 11:23 | DISCHARGE SUMMARY ---
ADMIT DATE: 05/17/2016 DISCHARGE DATE: 05/21/2016 ADMISSION DIAGNOSES: 1. Congestive heart failure, acute exacerbation. 2. Pneumonia, bilateral. 3. Dementia. 4. Parkinson's disease. 5. Hypertension. 6. Hyperlipidemia. DISCHARGE DIAGNOSES: 1. Congestive heart failure, acute exacerbation. 2. Pneumonia, bilateral. 3. Dementia. 4. Parkinson's disease. 5. Hypertension. 6. Hyperlipidemia. 7. Atrial fibrillation, intermittent. BRIEF HISTORY: The patient presented with increasing confusion, evaluated in the emergency department and found to have marked weakness, hypoxia and confusion. Chest x-ray revealed pneumonia. CT angiogram was obtained due to positive D-dimer, no pulmonary emboli were noted. Pneumonia was confirmed in addition to effusion. HOSPITAL COURSE: The patient was admitted. He had been started on Levaquin as an outpatient. This was discontinued. He was started on azithromycin and Rocephin. He tolerated this management well. He was also given IV diuresis and fluids with good response to IV diuretics. He remained weak, but had gradual slow improvement in respiratory status. His BNP declined. He did have some brief bouts of atrial fibrillation, controlled with IV metoprolol. He was then switched to oral metoprolol with good control. DISPOSITION: Home. DISCHARGE MEDICATIONS/INSTRUCTIONS: 1. Cephalexin 500 mg p.o. t.i.d. 1. Furosemide 40 mg p.o. b.i.d. 2. Exelon 1.5 mg p.o. b.i.d. 3. Ipratropium albuterol 3 mL nebulized 4 hours p.r.n. shortness of breath. 4. Lisinopril 10 mg p.o. daily. 5. Carbidopa/levodopa 25/100 mg 1 p.o. q.i.d. 6. Mirtazapine 15 mg p.o. at bedtime. 7. Lovastatin 40 mg p.o. at bedtime. 8. Metoprolol 50 mg p.o. daily. 9. Albuterol 2.5 nebulized q.6 hours p.r.n. wheezing. 10. Aspirin 81 mg p.o. daily. 11. Vitamin D 2000 units p.o. daily. 12. Special instructions: Light activity at home, home physical therapy, home oxygen to be continued at 3 liters per nasal prongs. Follow up with me in 2 weeks.
== END 2016-05-21 12:35 | disposition home or self-care (01) | DRG 291 ==
LOC: ED SRH 11:00 → TRANS SRH 16:31 → ACUTE2 SRH 18:00
PROVIDERS: ADMIT Family Medicine
DX: I11.0 Hypertensive heart disease with heart failure (principal); J18.9 Pneumonia, unspecified organism; I50.9 Heart failure, unspecified; G20 Parkinson's disease; F02.80 Dementia in other diseases classified elsewhere, unspecified severity, without behavioral disturbance, psychotic disturbance, mood disturbance, and anxiety; E78.5 Hyperlipidemia, unspecified; I48.91 Unspecified atrial fibrillation; R09.02 Hypoxemia; Z87.01 Personal history of pneumonia (recurrent); Z82.3 Family history of stroke; Z82.49 Family history of ischemic heart disease and other diseases of the circulatory system; Z66 Do not resuscitate; Z87.891 Personal history of nicotine dependence
CPT/HCPCS: 90004; 90065; 90074; 90100; 91320; 91556; 92031; 92720; 93004; 94001; 94060; 95059

== ENCOUNTER 2016-06-26 19:39 | Emergency (ER) | payer OTHER ==
[~2016-06-26 19:39] MED LIST changes: +ALBUTEROL2.5 MG/3 M IN; +ASPIRIN 81 LOW81 MG PO; +CEPHALEXIN500 MG PO; +FUROSEMIDE40 MG PO; +[UNRECOGNIZED DRUG - CODE] PO
--- NOTE | 2016-06-26 21:12 | ED NURSING NOTES ---
Clinical Report - Nurses [facility] [address] [place] [address] 06/26/2016 19:41 Patient: BINTA GÓMEZ SR TRIAGE Triage time 0. Acuity: LEVEL 3. Chief Complaint: (pt had a syncopal episode at home while watching t.v. with family. denes dizziness, SOB, or chest pain). TRAM COMA SCORE: [place] Coma Scale: 15- eyes open spontaneously (4); best verbal response- oriented x 4 (5); best motor response- obeys commands (6). --19:54 Rachel Barnett R.N. 19:40 06/26/16. BP: 131/66. HR: 76. RR: 18. O2 saturation: 96% on nasal cannula at 2 liters/minute. Temp: 98.4 F. Pain level now: 0/10. --19:54 Rachel Barnett R.N. TRAM COMA SCORE: [place] Coma Scale: 15- eyes open spontaneously (4); best verbal response- oriented x 4 (5); best motor response- obeys commands (6). --19:54 Rachel Barnett R.N. Weight: 84.3 kg stated. Height/Length: 71 inches Per Patient. BMI: 25.9. --19:48 Rachel Barnett R.N. Medications Aspirin Oral. Carbidopa-Levodopa Oral. Furosemide Oral. Ipratropium-Albuterol Inhalation. Lisinopril Oral. Lovastatin Oral. Metoprolol Succinate ER Oral. Mirtazapine Oral. --21:56 Rachel Barnett R.N. Rivastigmine Tartrate Oral. Vitamin D Oral. --21:56 Rachel Barnett R.N. Allergies Erythromycin. --21:56 Rachel Barnett R.N. History Arrived by EMS. Historian: patient. Accompanied by family. Primary physician (chanel). This started just prior to arrival. ( no facial asymetry noted, medical data analyst are equal bridgett). No alteration in mental status, headache or dizziness. SOCIAL HX: Smoker- current status unknown (quit in 1979, smoked 2ppd for 30 years). Occasional alcohol use; consumes beer. No drug use. --19:54 Rachel Barnett R.N. PROBLEMS: Congestive Heart Failure. Nephrolithiasis. Hyperlipidemia. Hydronephrosis. Abdominal aortic aneurysm. Edema. Chest Wall Pain. Dementia. Depression. Pneumonia. Subconjunctival Hemorrhage. Parkinson's Disease. Hypertension. Ureterolithiasis. --19:47 Rachel Barnett R.N. ADDITIONAL SURGERIES: Back Surgery. 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 --19:47 Rachel Barnett R.N. Interventions ID band on patient. To treatment room. --19:54 Rachel Barnett R.N. PHYSICAL ASSESSMENT 19:40. To room via stretcher. Patient gowned. GENERAL / NEURO / PSYCH: Awake. Oriented X 4. Alert. Appears in no acute distress. Speech normal. HEENT: No facial asymmetry noted. RESPIRATORY: Respirations not labored. CVS: Capillary refill less than 2 seconds. SKIN: Skin is intact, warm and dry. --19:53 Rachel Barnett R.N. NURSING PROGRESS NOTES 19:40. Oxygen administered. compliance monitor placed on patient. Patient gowned. Head of bed elevated. Patient identifiers checked. Call light placed in reach. Side rails up. Bed placed in lowest position. Patient ready for evaluation- chart flagged. --19:51 Rachel Barnett R.N. 19:52. EKG time: (1951). EKG was ordered, performed by eric chopra and shown to the ED physician. done by Chaparro chopra. --19:53 Rachel Barnett R.N. 19:59 06/26/2016 Site #1 started via IV in the right forearm with an 18g angiocath; one attempt. Blood drawn: rainbow set. Labeled in the presence of the patient and sent to the lab. Saline lock flushed with 10 mL saline. --19:59 Rachel Barnett R.N. 20:15. Portable chest x-ray ordered, performed and shown to the ED physician. --20:34 Rachel Barnett R.N. 20:20 06/26/16. BP: 125/67. HR: 66. RR: 20. O2 saturation: 98% on nasal cannula. Temp: deferred. Pain level now: 0/10. Additional comments: pt resting quietly, states he wants to go home. family at bedside .. pt reminded again that we need a Ua. --20:36 Rachel Barnett R.N. 20:45. Patient ID band checked for patient name and birthdate: patient confirmed. Clean catch urine collected with return of yellow-colored urine; sample sent to lab for urinalysis and culture. Specimen labeled in the presence of the patient (pt voided 200cc in urinal). --20:53 Rachel Barnett R.N. 20:53 06/26/16. BP: 98/77. HR: 67. RR: 28. O2 saturation: 98% on nasal cannula at 2 liters/minute. Temp: deferred. Pain level now: 0/10. --20:54 Rachel Barnett R.N. 21:10 06/26/16. BP: 130/77. HR: 67. RR: 18. O2 saturation: 97% on nasal cannula at 2 liters/minute. Temp: deferred. Pain level now: 0/10. Additional comments: daughter at bedside, waiting for lab results. --21:51 Rachel Barnett R.N. 21:30 06/26/2016 Site #1 removed upon discharge. Pressure dressing applied. --21:51 Rachel Barnett R.N. 21:30 06/26/2016 IV Saline Lock Drip IV Discontinued: bag #1 STOPPED upon discharge. Total amount infused: 0 mL. IV patency established. IV site checked: no pain, redness, or swelling. IV flushed thoroughly. --21:52 Rachel Barnett R.N. DISPOSITION / DISCHARGE 21:40. Condition at departure: improved and stable. No learning barriers present. Discharge instructions provided and reviewed with the patient and family. Reviewed medication(s) (cont home meds and oxygen). Patient and family verbalized understanding. Written instructions provided in [place]. ( pt assisted by nurse to car via w/c with oxygen on. ERMD approved pt being without oxygen for 10min ride in car to home). The patient was discharged home and accompanied by family. He left the Emergency Department in a wheelchair and via private vehicle. Driving (daughter). --21:55 Rachel Barnett R.N. 21:30 06/26/16. BP: 140/54. HR: 68. RR: 18. O2 saturation: 98%. Temp: deferred. Pain level now: 0/10. --21:55 Rachel Barnett R.N. Locked/Released at 06/26/2016 21:57 by Rachel Barnett R.N.
--- NOTE | 2016-06-26 21:12 | ED ORDER SUMMARY ---
..... Patient: BINTA GÓMEZ SR OrderSheet [facility] VisitID: [id number] [place] [address] 86y, M Registration Date/Time: 06/26/2016 ORDER SHEET Weight: 84.3 kg (stated) Allergies: Erythromycin GENERAL ORDERS: Chest 1V Urgent (19:55 06/26/2016 Jatinder Khalil) (Ack 19:58 SRedmond) (20:31 RFay) [employer] (Continuous) (near syncope) (19:56 06/26/2016 Jatinder Khalil) (19:57 CHagstephane ER Cleaning Professional) CBC w Diff Urgent (19:56 06/26/2016 Jatinder Khalil) (Ack 19:58 SRedmond) (20:00 SBalde R.N.) CMP Urgent (19:56 06/26/2016 Jatinder Khalil) (Ack 19:58 SRedmond) (20:00 SBalde R.N.) UA-Culture if indicated Urgent (19:56 06/26/2016 Jatinder Khalil) (Ack 19:58 SRedmond) (21:52 DDean R.N.) PT with INR Urgent (19:56 06/26/2016 Jatinder Khalil) (Ack 19:58 SRedmond) (20:00 SBalde R.N.) BNP Urgent (19:56 06/26/2016 Jatinder Khalil) (Ack 19:58 SRedmond) (20:00 SBalde R.N.) Troponin-I Urgent (19:56 06/26/2016 Jatinder Khalil) (Ack 19:58 SRedmond) (20:00 SBalde R.N.) Pulse oximeter (19:56 06/26/2016 Jatinder Khalil) (19:57 CHagerty ER Cleaning Professional) Oxygen (2 L/min) (NC) (19:56 06/26/2016 Jatinder Khalil) (19:57 Chandra ER Cleaning Professional) EKG - ER Stat (19:58 06/26/2016 CHagstephane ER Cleaning Professional per protocol) (19:58 CHagerty ER Cleaning Professional) MEDICATION ORDERS: IV FLUIDS: IV Saline Lock (19:56 06/26/2016 Jatinder Khalil) (20:00 Katerina Marie) ORDER SHEET NOTES: [Electronically signed by Rhett Paulino Dr. (21:18 06/26/2016)] [Electronically signed by Rachel Barnett R.N. (21:57 06/26/2016)] [Electronically locked/signed by Rachel Barnett R.N. (21:57 06/26/2016)]
--- NOTE | 2016-06-26 21:12 | ED ORDER SUMMARY ---
..... Patient: BINTA GÓMEZ SR OrderSheet [facility] VisitID: [id number] [place] [address] 86y, M Registration Date/Time: 06/26/2016 ORDER SHEET Weight: 84.3 kg (stated) Allergies: Erythromycin GENERAL ORDERS: Chest 1V Urgent (19:55 06/26/2016 Jatinder Khalil) (Ack 19:58 SRedmond) (20:31 RFay) Account Executive [employer] (Continuous) (near syncope) (19:56 06/26/2016 Jatinder Khalil) (19:57 CHagstephane ER Cover Remover) CBC w Diff Urgent (19:56 06/26/2016 Jatinder Khalil) (Ack 19:58 SRedmond) (20:00 SBalde R.N.) CMP Urgent (19:56 06/26/2016 Jatinder Khalil) (Ack 19:58 SRedmond) (20:00 SBalde R.N.) UA-Culture if indicated Urgent (19:56 06/26/2016 Jatinder Khalil) (Ack 19:58 SRedmond) (21:52 DDean R.N.) PT with INR Urgent (19:56 06/26/2016 Jatinder Khalil) (Ack 19:58 SRedmond) (20:00 SBalde R.N.) BNP Urgent (19:56 06/26/2016 Jatinder Khalil) (Ack 19:58 SRedmond) (20:00 SBalde R.N.) Troponin-I Urgent (19:56 06/26/2016 Jatinder Khalil) (Ack 19:58 SRedmond) (20:00 SBalde R.N.) Pulse oximeter (19:56 06/26/2016 Jatinder Khalil) (19:57 CHagerty ER Cover Remover) Oxygen (2 L/min) (NC) (19:56 06/26/2016 Jatinder Khalil) (19:57 Chandra ER Cover Remover) EKG - ER Stat (19:58 06/26/2016 CHagstephane ER Cover Remover per protocol) (19:58 CHagerty ER Cover Remover) MEDICATION ORDERS: IV FLUIDS: IV Saline Lock (19:56 06/26/2016 Jatinder Khalil) (20:00 Katerina Marie) ORDER SHEET NOTES: [Electronically signed by Rhett Paulino Dr. (21:18 06/26/2016)] [Electronically signed by Rachel Barnett R.N. (21:57 06/26/2016)] [Electronically locked/signed by Rachel Barnett R.N. (21:57 06/26/2016)]
--- NOTE | 2016-06-26 21:12 | ED NURSING NOTES ---
Clinical Report - Nurses [facility] [address] [place] [address] 06/26/2016 19:41 Patient: BINTA GÓMEZ SR TRIAGE Triage time 0. Acuity: LEVEL 3. Chief Complaint: (pt had a syncopal episode at home while watching t.v. with family. denes dizziness, SOB, or chest pain). TRAM COMA SCORE: [place] Coma Scale: 15- eyes open spontaneously (4); best verbal response- oriented x 4 (5); best motor response- obeys commands (6). --19:54 Rachel Barnett R.N. 19:40 06/26/16. BP: 131/66. HR: 76. RR: 18. O2 saturation: 96% on nasal cannula at 2 liters/minute. Temp: 98.4 F. Pain level now: 0/10. --19:54 Rachel Barnett R.N. TRAM COMA SCORE: [place] Coma Scale: 15- eyes open spontaneously (4); best verbal response- oriented x 4 (5); best motor response- obeys commands (6). --19:54 Rachel Barnett R.N. Weight: 84.3 kg stated. Height/Length: 71 inches Per Patient. BMI: 25.9. --19:48 Rachel Barnett R.N. Medications Aspirin Oral. Carbidopa-Levodopa Oral. Furosemide Oral. Ipratropium-Albuterol Inhalation. Lisinopril Oral. Lovastatin Oral. Metoprolol Succinate ER Oral. Mirtazapine Oral. --21:56 Rachel Barnett R.N. Rivastigmine Tartrate Oral. Vitamin D Oral. --21:56 Rachel Barnett R.N. Allergies Erythromycin. --21:56 Rachel Barnett R.N. History Arrived by EMS. Historian: patient. Accompanied by family. Primary physician (chanel). This started just prior to arrival. ( no facial asymetry noted, carton stapler are equal bridgett). No alteration in mental status, headache or dizziness. SOCIAL HX: Smoker- current status unknown (quit in 1979, smoked 2ppd for 30 years). Occasional alcohol use; consumes beer. No drug use. --19:54 Rachel Barnett R.N. PROBLEMS: Congestive Heart Failure. Nephrolithiasis. Hyperlipidemia. Hydronephrosis. Abdominal aortic aneurysm. Edema. Chest Wall Pain. Dementia. Depression. Pneumonia. Subconjunctival Hemorrhage. Parkinson's Disease. Hypertension. Ureterolithiasis. --19:47 Rachel Barnett R.N. ADDITIONAL SURGERIES: Back Surgery. 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 --19:47 Rachel Barnett R.N. Interventions ID band on patient. To treatment room. --19:54 Rachel Barnett R.N. PHYSICAL ASSESSMENT 19:40. To room via stretcher. Patient gowned. GENERAL / NEURO / PSYCH: Awake. Oriented X 4. Alert. Appears in no acute distress. Speech normal. HEENT: No facial asymmetry noted. RESPIRATORY: Respirations not labored. CVS: Capillary refill less than 2 seconds. SKIN: Skin is intact, warm and dry. --19:53 Rachel Barnett R.N. NURSING PROGRESS NOTES 19:40. Oxygen administered. supervisor tower placed on patient. Patient gowned. Head of bed elevated. Patient identifiers checked. Call light placed in reach. Side rails up. Bed placed in lowest position. Patient ready for evaluation- chart flagged. --19:51 Rachel Barnett R.N. 19:52. EKG time: (1951). EKG was ordered, performed by eric chopra and shown to the ED physician. done by Chaparro chopra. --19:53 Rachel Barnett R.N. 19:59 06/26/2016 Site #1 started via IV in the right forearm with an 18g angiocath; one attempt. Blood drawn: rainbow set. Labeled in the presence of the patient and sent to the lab. Saline lock flushed with 10 mL saline. --19:59 Rachel Barnett R.N. 20:15. Portable chest x-ray ordered, performed and shown to the ED physician. --20:34 Rachel Barnett R.N. 20:20 06/26/16. BP: 125/67. HR: 66. RR: 20. O2 saturation: 98% on nasal cannula. Temp: deferred. Pain level now: 0/10. Additional comments: pt resting quietly, states he wants to go home. family at bedside .. pt reminded again that we need a Ua. --20:36 Rachel Barnett R.N. 20:45. Patient ID band checked for patient name and birthdate: patient confirmed. Clean catch urine collected with return of yellow-colored urine; sample sent to lab for urinalysis and culture. Specimen labeled in the presence of the patient (pt voided 200cc in urinal). --20:53 Rachel Barnett R.N. 20:53 06/26/16. BP: 98/77. HR: 67. RR: 28. O2 saturation: 98% on nasal cannula at 2 liters/minute. Temp: deferred. Pain level now: 0/10. --20:54 Rachel Barnett R.N. 21:10 06/26/16. BP: 130/77. HR: 67. RR: 18. O2 saturation: 97% on nasal cannula at 2 liters/minute. Temp: deferred. Pain level now: 0/10. Additional comments: daughter at bedside, waiting for lab results. --21:51 Rachel Barnett R.N. 21:30 06/26/2016 Site #1 removed upon discharge. Pressure dressing applied. --21:51 Rachel Barnett R.N. 21:30 06/26/2016 IV Saline Lock Drip IV Discontinued: bag #1 STOPPED upon discharge. Total amount infused: 0 mL. IV patency established. IV site checked: no pain, redness, or swelling. IV flushed thoroughly. --21:52 Rachel Barnett R.N. DISPOSITION / DISCHARGE 21:40. Condition at departure: improved and stable. No learning barriers present. Discharge instructions provided and reviewed with the patient and family. Reviewed medication(s) (cont home meds and oxygen). Patient and family verbalized understanding. Written instructions provided in [place]. ( pt assisted by nurse to car via w/c with oxygen on. ERMD approved pt being without oxygen for 10min ride in car to home). The patient was discharged home and accompanied by family. He left the Emergency Department in a wheelchair and via private vehicle. Driving (daughter). --21:55 Rachel Barnett R.N. 21:30 06/26/16. BP: 140/54. HR: 68. RR: 18. O2 saturation: 98%. Temp: deferred. Pain level now: 0/10. --21:55 Rachel Barnett R.N. Locked/Released at 06/26/2016 21:57 by Rachel Barnett R.N.
--- NOTE | 2016-06-26 21:12 | ED CLINICAL REPORT ---
Clinical Report - Physicians/Mid Levels [facility] [address] [address] 06/26/2016 19:41 Patient: BINTA GÓMEZ SR Time Seen: 1950. Arrived- By ambulance. Historian- patient. HISTORY OF PRESENT ILLNESS Chief Complaint: NEAR-SYNCOPE. Is no longer unconscious. He has recovered. This occurred today. It was abrupt in onset and has been intermittent. Patient was last known well (just [employer]). Event was witnessed. The patient felt faint. The patient had no preceding symptoms. At time of event, he was sitting. The patient had preceding symptoms of light-headedness. The episode lasted seconds. No injuries noted. Currently he feels normal. No weakness currently. No nausea currently. No headache currently. (no shortness of breath). Similar symptoms previously: None. Recent medical care: Not recently seen/assessed. REVIEW OF SYSTEMS No weakness, chest pain, palpitations, abdominal pain or vomiting. No diarrhea, black stools, numbness, bloody stools or fever. No difficulty breathing or skin rash. All systems otherwise negative, except as recorded above. PAST HISTORY See nurses notes. SOCIAL HISTORY Never smoker. No alcohol use or drug use. No recent travel. Is a local resident. lives with and daughter. ADDITIONAL NOTES The nursing notes have been reviewed. PHYSICAL EXAM Vital Signs: 06/26/2016 19:40 BP: 131/66. HR: 76. RR: 18. O2 saturation: 96%. Temp: 98.4 F. Pain level now: 0/10. Blood pressure normal. Oxygen saturation normal. Appearance: Alert. No acute distress. Eyes: Pupils equal, round and reactive to light. No nystagmus. Extraocular movements normal. ENT: Normal ENT inspection. TM's normal. Moist mucous membranes. Pharynx normal. Neck: Normal inspection. Neck supple. CVS: Normal heart rate and rhythm. Heart sounds normal. Pulses normal. Respiratory: No respiratory distress. Breath sounds normal. Abdomen: Soft and nontender. No organomegaly. Skin: Skin warm and dry. Normal skin color. No rash. Normal skin turgor. Extremities: Extremities exhibit normal ROM. No lower extremity edema. Neuro: Alert. Oriented X 3. Mood/affect normal. Speech normal. Cranial nerves normal (as tested). No cerebellar findings. No motor deficit. No sensory deficit. Reflexes normal. LABS, X-RAYS, AND EKG EKG: No acute ischemia. Normal sinus rhythm. Rate: 69. Normal P waves. Normal JOE. LVH. ST elevation of uncertain significance in lead V2- consistent with early repolarization. EKG unchanged when compared with prior EKG. (May 18, 2016). The study has been interpreted contemporaneously. The study has been independently viewed by me. The EKG appears to be a good tracing. Chest X-ray: No acute disease. Normal heart size. Mediastinum normal. No fracture. Views: PA. Technique: good. The X-rays were independently viewed by me and interpreted contemporaneously by me. A comparison with prior films reveals that the findings are improved. Laboratory Tests: CBC w Diff: (SARAH: 06/26/2016 19:58) ( [facility] [place]:06) Final results Test Result Flag Units (Reference) WHITE BLOOD COUNT 6.4 K/uL (4.5-11.5) RED BLOOD COUNT 4.29 L M/uL (4.50-5.90) HEMOGLOBIN 12.9 L gm/dL (13.5-17.5) HEMATOCRIT 39.5 L % (41.0-53.0) MEAN CELL VOLUME 92 fL (80-100) MEAN CORPUSCULAR HGB 30 pg (26-34) MEAN CORPUSCULAR HGB CONC 33 g/dL (31-37) RED CELL DISTRIBUTION WIDTH 16.0 H % (11.6-14.8) PLATELET COUNT 209 K/uL (150-400) NEUTROPHIL % 51.9 % (50-75) LYMPH % 30.1 % (25-40) MONO % 14.5 H % (3-14) EOSINOPHIL % 3.2 % (0-4) BASOPHIL % 0.3 % (0-2) PT with INR: (SARAH: 06/26/2016 19:58) ( MsgRcvd 06/26/2016 20:18) Final results Test Result Flag Units (Reference) INR 0.9 (0.8-1.2) Low Intensity Therapy: INR 1.5-2.0 PT range 18.5-23.1Mod.Intensity Therapy: INR 2.0-3.0 PT range 23.1-31.5High Intensity Therapy: INR 2.5-3.5 PT range 27.4-35.5High Intensity Therapy 2: INR 3.0-4.0 PT range 31.5-39.3 BNP: (SARAH: 06/26/2016 19:58) ( [facility] [place] 06/26/2016 20:24) Final results Test Result Flag Units (Reference) B-TYPE NATRIURETIC PEPTIDE 258 H pg/ml (5-100) CMP: (SARAH: 06/26/2016 19:58) ( CagRcvd 06/26/2016 20:23) Final results Test Result Flag Units (Reference) GLUCOSE 97 mg/dL (70-110) BUN 33 H mg/dL (7-18) CREATININE 1.2 mg/dL (0.6-1.3) Estimated GFR >60 mL/min Estimated GFR- >60 mL/min Note: Persistent reduction over 3 months in eGFR<60 mL/min/1.73 m2 defines CKD. Patients with eGFR values>=60 mL/min/1.73 m2 may also have CKD if evidence ofpersistent proteinuria. Additional information may be foundat www.kidney.org. SODIUM 145 mmol/L (136-145) POTASSIUM 4.3 mmol/L (3.5-5.1) CHLORIDE 104 mmol/L (98-107) CARBON DIOXIDE 39 H mmol/L (21-32) CALCIUM 8.7 mg/dL (8.5-10.1) TOTAL PROTEIN 6.9 g/dL (6.4-8.2) ALBUMIN 3.5 g/dL (3.3-5.0) BILIRUBIN, TOTAL 0.5 mg/dL (0.0-1.0) ALKALINE PHOSPHATASE 84 U/L (46-116) AST (SGOT) 15 U/L (15-37) ALT (SGPT) 13 U/L (12-78) TROPONIN I <0.05 ng/mL (0.00-1.5) TROPONIN REFERENCE RANGE:<0.1 NEGATIVE0.1-1.5 INDETERMINANT>1.5 POSITIVE . PROGRESS AND PROCEDURES Course of Care: the patient is a pleasant 86-year-old male with past medical history significant for congestive heart failure presented for evaluation of syncopal event. The patient states that he was resting in bed and in no acute distress when this occurred. Patient had reports no injuries at this time. Patient will be evaluated the EKG and chest x-ray as well as laboratory studies for evaluation of possible etiologies to the syncopal event including fluctuated abnormalities, anemia, or infectious causes as well as cardiac etiology. EKG was reviewed by me. No acute findings noted except for abnormal ST segments in leads V2 which appear to be unchanged from prior. Patient is resting in bed and in no acute distress. Vital signs here in the emergency department and noted to be unremarkable. Patient's laboratory studies and chest x-ray do not show any acute findings. Chest x-ray with left cardiac border being obscured however this is unchanged from prior chest x-ray in April. Do not feel that this is an acute finding. Do not feel that this is pneumonia based on patient's history. In further discussion with the patient's daughter about what happened today, patient apparently was walking around without supplemental oxygen The patient had sat down and had his event. Patient likely hypoxic Patient was placed on oxygen and recovered quickly after several seconds. Because of the patient's events, feel that this was likely due to hypoxia secondary to accidental noncompliance with oxygen. Do not fill patient needs to be admitted to the hospital given his negative workup here in the emergency department. Discussed with the patient as well as the patient's daughter in regards to his workup here in the emergency department. Discussed with them that his diagnosis as well as home care and follow-up as well as return precautions. All questions have been answered. The patient expressed understanding of these instructions and was agreeable to them. CLINICAL IMPRESSION Near syncope (acute). 06/26/2016 20:53 BP: 98/77. HR: 67. RR: 28. O2 saturation: 98%. Pain level now: 0/10. Blood pressure normal. Oxygen saturation normal. acute hypoxia, resolved. INSTRUCTIONS Warnings: GENERAL WARNINGS: Return or contact your physician immediately if your condition worsens or changes unexpectedly, if not improving as expected, or if other problems arise. SPECIFICALLY, return if you develop chest pain, fluttering sensation in your chest, lightheadedness, fainting, numbness, weakness or extreme fatigue. Follow-up: Return to the emergency department as needed. Follow up with your doctor in three days. Reason for referral: recheck today's concerns. Summary of care provided to patient via paper. Screening today revealed the patient's blood pressure to be in the normal range. The patient should follow up with a primary care provider for blood pressure management. Understanding of the discharge instructions verbalized by patient. (Electronically signed by Rhett Paulino Dr. 06/26/2016 21:18)
--- NOTE | 2016-06-26 21:41 | DIAGNOSTIC IMAGING REPORT ---
PROCEDURE: XR CHEST 1 VIEW INDICATION: SYNCOPE TECHNIQUE: Portable AP view (2009 hours). COMPARISON: Compared to chest x-ray on 05/21/2016 FINDINGS: Allowing for suboptimal inspiration, lungs are clear. Mild cardiomegaly. Mediastinum is normal. Thorax is normal. IMPRESSION: 1. Mild cardiomegaly. 2. Otherwise negative chest.
--- NOTE | 2016-06-26 21:57 | ED MED RECONCILIATION SUMMARY ---
Patient: BINTA GÓMEZ SR Medication Reconciliation Report [facility] VisitID: [id number] [address] [place] [address] 86y, M Registration Date/Time: 06/26/2016 Weight: 84.3 kg Height/Length: 71 in. BMI: 25.9 ALLERGIES: Erythromycin The patient's Home Medications are listed below: THE FOLLOWING MEDICATIONS NEED TO BE RECONCILED: Aspirin Oral Carbidopa-Levodopa Oral Furosemide Oral Ipratropium-Albuterol Inhalation Lisinopril Oral Lovastatin Oral Metoprolol Succinate ER Oral Mirtazapine Oral Rivastigmine Tartrate Oral Vitamin D Oral The source(s) of the original Home Medication information: Not obtained. The following Medications were given to the patient in the Emergency Department: None. The following Medications were prescribed to the patient: None.
--- NOTE | 2016-06-26 21:57 | ED MAR SUMMARY ---
..... Medication Administration Record [facility] [address] [place], [place] [id number] Patient: BINTA GÓMEZ Visit ID: [id number] 86y, M Weight: 84.3 kg Height/Length: 71 in BMI: 25.9 ALLERGIES: Erythromycin
--- NOTE | 2016-06-26 21:57 | ED MED RECONCILIATION SUMMARY ---
Patient: BINTA GÓMEZ SR Medication Reconciliation Report [facility] VisitID: [id number] [address] [place] [address] 86y, M Registration Date/Time: 06/26/2016 Weight: 84.3 kg Height/Length: 71 in. BMI: 25.9 ALLERGIES: Erythromycin The patient's Home Medications are listed below: THE FOLLOWING MEDICATIONS NEED TO BE RECONCILED: Aspirin Oral Carbidopa-Levodopa Oral Furosemide Oral Ipratropium-Albuterol Inhalation Lisinopril Oral Lovastatin Oral Metoprolol Succinate ER Oral Mirtazapine Oral Rivastigmine Tartrate Oral Vitamin D Oral The source(s) of the original Home Medication information: Not obtained. The following Medications were given to the patient in the Emergency Department: None. The following Medications were prescribed to the patient: None.
--- NOTE | 2016-06-26 21:57 | ED MAR SUMMARY ---
..... Medication Administration Record [facility] [address] [place], [place] [id number] Patient: BINTA GÓMEZ Visit ID: [id number] 86y, M Weight: 84.3 kg Height/Length: 71 in BMI: 25.9 ALLERGIES: Erythromycin
--- NOTE | 2016-06-26 21:57 | ED DISCHARGE INSTRUCTIONS ---
Patient: BINTA GÓMEZ SR General Instructions [facility] VisitID: [id number] [place] [address] 86y, M Registration Date/Time: 06/26/2016 Near syncope (acute). 06/26/2016 20:53 BP: 98/77. HR: 67. RR: 28. O2 saturation: 98%. Pain level now: 0/10. Blood pressure normal. Oxygen saturation normal. acute hypoxia, resolved. INSTRUCTIONS Warnings: GENERAL WARNINGS: Return or contact your physician immediately if your condition worsens or changes unexpectedly, if not improving as expected, or if other problems arise. SPECIFICALLY, return if you develop chest pain, fluttering sensation in your chest, lightheadedness, fainting, numbness, weakness or extreme fatigue. Follow-up: Return to the emergency department as needed. Follow up with your doctor in three days. Reason for referral: recheck today's concerns. Summary of care provided to patient via paper. Screening today revealed the patient's blood pressure to be in the normal range. The patient should follow up with a primary care provider for blood pressure management. Understanding of the discharge instructions verbalized by patient. ADDITIONAL INFORMATION Near-Fainting:Uncertain Cause Fainting (syncope) is a temporary loss of consciousness ("passing out"). It occurs when blood flow to the brain is reduced. Near-fainting ("near-syncope") is like fainting, but you do not fully "pass out." The common minor causes of near fainting include sudden fear, pain, emotional stress, overexertion, or quickly standing up after sitting or lying for a long time. The more serious causes for near fainting are due to either a very slow or very fast heart beat, dehydration, anemia, blood loss, problems related to the heart, or taking too much high blood pressure medicine. The exact cause of your episode is not certain. More tests may be required. Therefore, it is important that you follow up with your doctor as advised. Home Care: 1) Rest today. Resume your normal activities as soon as you are feeling back to normal. 2) If you become light-headed or dizzy, lie down right away or sit with your head between your knees. 3) Because we do not know the exact cause of your near fainting spell, another spell could occur without warning. Therefore, do not drive a car or use dangerous equipment. D o not take a bath alone (use a shower instead). Do not swim alone. You can resume these activities when your doctor says that you are no longer in danger of having a near fainting spell. 4) Stay well hydrated by drinking enough fluid each day. Follow Up with your doctor as instructed. Get Prompt Medical Attention if any of the following occur: -- Another fainting spell occurs, and it is not explained by the common causes listed above -- Chest, arm, neck, jaw, back or abdominal pain -- Shortness of breath -- Weakness, tingling or numbness in one side of the face, one arm or leg -- Slurred speech, confusion, trouble walking or seeing -- Seizure -- Blood in vomit, stools (black or red color) -- (In women) unexpected vaginal bleeding You have been given the following additional information: Near Syncope, Unknown (Electronically signed by Rhett Paulino Dr. 06/26/2016 21:18)
== END 2016-06-26 21:40 | disposition home or self-care (01) ==
LOC: ED SRH 19:39
DX: R55 Syncope and collapse (principal); R09.02 Hypoxemia; I10 Essential (primary) hypertension; Z79.899 Other long term (current) drug therapy; Z88.1 Allergy status to other antibiotic agents
CPT/HCPCS: 90004; 90100; 90616; 91320; 94060; 95059

== ENCOUNTER 2016-07-09 13:07 | Observation (INO) | payer OTHER ==
[~2016-07-09] VITALS: Ht 182.9 cm; Wt 77.0 kg
--- NOTE | 2016-07-09 13:51 | DIAGNOSTIC IMAGING REPORT ---
PROCEDURE: XR CHEST 1 VIEW INDICATION: SHORTNESS OF BREATH TECHNIQUE: Portable AP view 01:35 p.m. COMPARISON: Chest x-ray 06/26/2016 FINDINGS: Minor right basilar atelectasis/scarring. Mild cardiomegaly. Mediastinum and pulmonary vessels are normal. Thorax is normal. IMPRESSION: 1. Minor right basilar scarring 2. Stable mild cardiomegaly
--- NOTE | 2016-07-09 16:05 | DIAGNOSTIC IMAGING REPORT ---
PROCEDURE: CT HEAD WITHOUT CONTRAST INDICATION: SYNCOPE TECHNIQUE: Noncontrast axial images with sagittal and coronal reformations. COMPARISON: None. FINDINGS: Mild cortical atrophy and enlargement of the ventricular system. Minor white matter chronic ischemic changes. No acute CVA, hemorrhage, mass or midline shift. No evidence of acute intracranial process. Visualized mastoids and sinuses are clear. IMPRESSION: 1. No acute intracranial abnormality 2. Mild atrophy and minor white matter chronic ischemic changes 3. Findings discussed with Dr. Grider at 04:03 p.m.[facility] Standard Time
--- NOTE | 2016-07-09 16:05 | DIAGNOSTIC IMAGING REPORT ---
PROCEDURE: CT HEAD WITHOUT CONTRAST INDICATION: SYNCOPE TECHNIQUE: Noncontrast axial images with sagittal and coronal reformations. COMPARISON: None. FINDINGS: Mild cortical atrophy and enlargement of the ventricular system. Minor white matter chronic ischemic changes. No acute CVA, hemorrhage, mass or midline shift. No evidence of acute intracranial process. Visualized mastoids and sinuses are clear. IMPRESSION: 1. No acute intracranial abnormality 2. Mild atrophy and minor white matter chronic ischemic changes 3. Findings discussed with Dr. Grider at 04:03 p.m.[facility] Standard Time
--- NOTE | 2016-07-09 16:21 | ED CLINICAL REPORT ---
Clinical Report - Physicians/Mid Levels [place] [address] [place] [address] 07/09/2016 13:07 Patient: BINTA GÓMEZ SR Time Seen: 13:10. Arrived- By ambulance. Historian- patient, EMS personnel and family. HISTORY OF PRESENT ILLNESS Chief Complaint: SINGLE SYNCOPAL EPISODE. The patient has recovered. It was gradual in onset. Patient was last known well (just prior to arrival). This occurred just prior to arrival. Event was witnessed. Witnessed by family member and caregiver. The patient lost consciousness. No seizure activity or incontinence. The patient had preceding symptoms of light-headedness. No preceding symptoms of nausea or chest pain. At time of event, he was standing (he was standing for physical therapy, his legs became "weak" and they placed him in a chair and he had a syncopal episode). At time of event, he had just stood up. Had a single episode. The episode lasted minutes (approximately 5 minutes by EMS report). No injuries noted. Currently he feels normal. No weakness currently. No nausea currently. No headache currently. (CODE STATUS: DNR - per and daughter; recent H&P dictated on 05/28/16 also states DNR; POLST from 04/26/2016 confirms DNAR with limited interventions). Similar symptoms previously: Several times. Recent medical care: The patient was seen recently at this facility in the emergency department. Seen for similar symptoms. REVIEW OF SYSTEMS No headache, chest pain, palpitations, abdominal pain or vomiting. No diarrhea, black stools, bloody stools, fever or sore throat. No difficulty breathing, difficulty with urination or skin rash. The patient has had dizziness. He has had pre-existing generalized weakness. He has had a mild cough. It has been similar to previous symptoms. All systems otherwise negative, except as recorded above. PAST HISTORY ( PCP: Dr Salguero Syncopal / near syncopal episodes - reports he has an upcoming appt with cardiology to further assess this Nephrolithiasis. Hyperlipidemia. Hydronephrosis. Abdominal aortic aneurysm. Edema. Chest Wall Pain. Dementia. Depression. Pneumonia. Subconjunctival Hemorrhage. Hypertension. Parkinson's Disease. Ureterolithiasis Chronic hypoxemia - reportedly chronically uses 3L NC O2 SURGERIES: Back TURP Additional hisotory from old records: DIAGNOSES: 1. Congestive heart failure, acute exacerbation. 2. Pneumonia, bilateral. 3. Dementia. 4. Parkinson's disease. 5. Hypertension. 6. Hyperlipidemia. 7. Atrial fibrillation, intermittent. MEDICAL/SURGICAL HISTORY: Remarkable for pneumonia, bacterial, recently treated last month. Depression, dementia, dependent edema, Parkinson's disease, abdominal aortic aneurysm, hydronephrosis, hyperlipidemia, hypertension, and nephrolithiasis. Additionally, the patient has had a history of sleep apnea and diverticulitis. Surgeries: Back surgery and TURP (prostate surgery).). Medications: Aspirin Oral. Carbidopa-Levodopa Oral. Furosemide Oral. Ipratropium-Albuterol Inhalation. Lisinopril Oral. Lovastatin Oral. Metoprolol Succinate ER Oral. Mirtazapine Oral. Rivastigmine Tartrate Oral. Vitamin D Oral. Allergies: Erythromycin. SOCIAL HISTORY Former smoker, end date 1979. No alcohol use or drug use. Is a local resident. ADDITIONAL NOTES The nursing notes have been reviewed. PHYSICAL EXAM Vital Signs: 07/09/2016 13:11 BP: 197/96. HR: 74. RR: 14. O2 saturation: 92%. Temp: 95.6 F. Pain level now: 0/10. Appearance: Alert. No acute distress. Head: No tenderness, ecchymosis or swelling. Eyes: No nystagmus. ENT: Normal ENT inspection. No depression of the gag reflex. No trouble handling secretions, injury to the tongue or pharyngeal erythema. The mucous membranes are not dry. Normal ear exam. Neck: Normal inspection. Neck supple. CVS: Normal heart rate and rhythm. Pulses normal. Respiratory: No respiratory distress. Breath sounds normal. No rales, wheezes or rhonchi. Abdomen: Soft and nontender. Back: Normal inspection. Skin: Skin warm and dry. Normal skin color. Extremities: Extremities exhibit normal ROM. No lower extremity edema. Neuro: Alert. The patient is disoriented to time. Speech normal. Cranial nerve deficit present, as evidenced by a right facial droop. No dilated pupil, EOM weakness or palsy, ptosis or visual field deficit. No loss of the corneal reflex, nystagmus, uvular deviation, tongue deviation or difficulty swallowing. No trapezius weakness or sternocleidomastoid weakness. Mild right-sided facial weakness. The patient has had weakness of the right face (mild). No sensory deficit. Reflex exam: right biceps 1+, left biceps 1+, right patellar 1+, left patellar 1+, right Achilles 0 and left Achilles 0. LABS, X-RAYS, AND EKG EKG: EKG time: (13:31). Normal sinus rhythm. Rate: 75. Ectopic beats. Premature atrial contractions. Normal P waves. Left atrial enlargement. Normal JOE. Q waves in lead V2. LVH. Left axis deviation. Non-specific ST segment / T wave abnormalities. EKG unchanged when compared with prior EKG. (no change from [id number]). The study has been interpreted contemporaneously by me. The EKG appears to be a good tracing. Rhythm Strip #1: Normal sinus rhythm. Wide QRS complexes. Premature atrial contractions and ventricular contractions. Non-specific ST segment / T-wave abnormalities. Chest X-ray: (IMPRESSION: 1. Minor right basilar scarring 2. Stable mild cardiomegaly). Views: AP (portable). Technique: good. The X-rays were interpreted contemporaneously by me. The X-rays were discussed with the radiologist (via PACS note). A comparison with prior films reveals that the findings are improved. CT Head: No acute changes. (IMPRESSION: 1. No acute intracranial abnormality 2. Mild atrophy and minor white matter chronic ischemic changes). Head CT performed without contrast. The study was independently viewed by me, interpreted by the radiologist and discussed with the radiologist. Laboratory Tests: UA-Culture if indicated: (SARAH: 07/09/2016 13:50) ( Msg[facility]cvd 07/09/2016 14:08) Final results Test Result Flag Units (Reference) URINE COLOR YELLOW URINE APPEARANCE CLEAR URINE GLUCOSE NEGATIVE (NEGATIVE) URINE BILIRUBIN NEGATIVE (NEGATIVE) URINE KETONE NEGATIVE (NEGATIVE) URINE SPECIFIC GRAVITY 1.010 (1.010-1.030) URINE PH 6.0 (5.0-8.0) URINE PROTEIN NEGATIVE (NEGATIVE) URINE UROBILINOGEN 0.2 EU/dL (0.2-1.0) URINE NITRITE NEGATIVE (NEGATIVE) URINE BLOOD NEGATIVE (NEGATIVE) URINE LEUK ESTERASE NEGATIVE (NEGATIVE) URINE RBC RARE rbc/hpf (0-1) URINE WBC 0-1 wbc/hpf (0-1) URINE EPITHELIAL CELLS RARE EPI/hpf (0-5) URINE BACTERIA NONE SEEN (NONE SEEN) URINE COMMENT CULT NOT INDICATED URINE CULTURES ARE SET-UP BASED ON THE FOLLOWING CRITERIA:POSITIVE NITRITEPOSITIVE LEUKOCYTE ESTERASEGREATER THAN 10 WHITE BLOOD CELLSMODERATE (2+) OR GREATER BACTERIA CBC w Diff: (SARAH: 07/09/2016 13:30) ( [facility] 07/09/2016 13:46) Final results Test Result Flag Units (Reference) WHITE BLOOD COUNT 6.7 K/uL (4.5-11.5) RED BLOOD COUNT 4.68 M/uL (4.50-5.90) HEMOGLOBIN 14.1 gm/dL (13.5-17.5) HEMATOCRIT 43.3 % (41.0-53.0) MEAN CELL VOLUME 92 fL (80-100) MEAN CORPUSCULAR HGB 30 pg (26-34) MEAN CORPUSCULAR HGB CONC 33 g/dL (31-37) RED CELL DISTRIBUTION WIDTH 15.9 H % (11.6-14.8) PLATELET COUNT 193 K/uL (150-400) NEUTROPHIL % 51.9 % (50-75) LYMPH % 35.8 % (25-40) MONO % 9.9 % (3-14) EOSINOPHIL % 2.1 % (0-4) BASOPHIL % 0.3 % (0-2) PT with INR: (SARAH: 07/09/2016 13:30) ( [facility] 07/09/2016 13:50) Final results Test Result Flag Units (Reference) INR 0.9 (0.8-1.2) Low Intensity Therapy: INR 1.5-2.0 PT range 18.5-23.1Mod.Intensity Therapy: INR 2.0-3.0 PT range 23.1-31.5High Intensity Therapy: INR 2.5-3.5 PT range 27.4-35.5High Intensity Therapy 2: INR 3.0-4.0 PT range 31.5-39.3 BNP: (SARAH: 07/09/2016 13:30) ( MsgRcvd 07/09/2016 14:04) Final results Test Result Flag Units (Reference) B-TYPE NATRIURETIC PEPTIDE 440 H pg/ml (5-100) CHEM 13 PANEL: (SARAH: 07/09/2016 13:30) ( MsgRcvd 07/09/2016 14:10) Final results Test Result Flag Units (Reference) GLUCOSE 144 H mg/dL (70-110) BUN 35 H mg/dL (7-18) CREATININE 1.1 mg/dL (0.6-1.3) Estimated GFR >60 mL/min Estimated GFR- >60 mL/min Note: Persistent reduction over 3 months in eGFR<60 mL/min/1.73 m2 defines CKD. Patients with eGFR values>=60 mL/min/1.73 m2 may also have CKD if evidence ofpersistent proteinuria. Additional information may be foundat www.kidney.org. SODIUM 144 mmol/L (136-145) POTASSIUM 3.6 mmol/L (3.5-5.1) CHLORIDE 103 mmol/L (98-107) CARBON DIOXIDE 36 H mmol/L (21-32) CALCIUM 9.0 mg/dL (8.5-10.1) TOTAL PROTEIN 6.9 g/dL (6.4-8.2) ALBUMIN 3.7 g/dL (3.3-5.0) BILIRUBIN, TOTAL 0.7 mg/dL (0.0-1.0) ALKALINE PHOSPHATASE 82 U/L (46-116) AST (SGOT) 21 U/L (15-37) ALT (SGPT) 8 L U/L (12-78) CPK 35 U/L (24-260) MAGNESIUM 2.0 mg/dL (1.8-2.4) AMYLASE 45 U/L (25-115) TROPONIN I <0.05 ng/mL (0.00-1.5) TROPONIN REFERENCE RANGE:<0.1 NEGATIVE0.1-1.5 INDETERMINANT>1.5 POSITIVE THYROID STIMULATING HORMONE 0.766 uIU/mL (0.30-3.74) . Bedside Tests: Glucose: mild hyperglycemia - 135 (performed at bedside). Pulse Oximetry: 07/09/2016 13:11 O2 saturation: 92%. (FIO2- nasal cannula). Interpretation: hypoxemia. PROGRESS AND PROCEDURES Course of Care: Normal Saline 500 mL IVPB given. Patient is stable. Physical exam findings are improved. Symptoms better. Pt with prolonged syncopal episode. May have cardiac dysrhythmia. He has been referred to cardiology, but has not yet been seen. He may be a candidate for pacer placement, but his POLST states DNR with limited interventions. Discussed admission vs home observation with family with the understanding if he has a cardiac dysrhythmia that he could at home and they wish to have him admitted for observation. Discussed case with on-call health care provider, (Crow call placed 14:33 - prefers that hospitalist admit pt - I will call hospitalist call placed 16:14 - hospitalist prefers Dr Maria admit pt - call returned 16:21). Reviewed test results. Agreed upon treatment plan and decision to place in observation. Refers case to other health care provider. Discussed case with hospitalist, (Charles call placed 16:07 call returned 16:12 - refers back to Dr Maria). Reviewed test results. Agreed upon treatment plan. Health care provider will see patient in hospital. Refers case to other health care provider. Patient/family counseled. Additional history sought (from family after patient arrival). Old ED and inpatient records reviewed. Observation orders written. Disposition: Observation in Acute Care. Condition: guarded and improved. CLINICAL IMPRESSION Syncope of unknown cause .12 lead EKG performed. Chronic dementia. Chronic moderate systolic, congestive heart failure. Essential hypertension. Parkinson's Disease. Right facial droop - possibly new. INSTRUCTIONS Follow-up: Screening today revealed the patient's blood pressure to be in the hypertensive range. The patient should follow up with a primary care provider for blood pressure management. The patient was admitted and blood pressure will be managed during the admission. (Electronically signed by Alexandre Grider DO 07/09/2016 19:52) Addenda for BINTA GÓMEZ Dao VisitID: [id number] Date: 07/09/2016 07/09/2016 19:43 Started bag #2 1000 IV Fluids IV#2 NS (Saline); at 100 mL/hr over 10 hour(s) via site #1 via IV pump. Allergies verified and confirmed 5 rights. IV patency established. IV site checked: no pain, redness, or swelling. IV flushed thoroughly pre- and post-medication administration. IV Fluids IV#2 NS Continued: upon admission at the rate of 100 mL/hr. 9-50 mL remaining bag #2. IV patency established. IV site checked: no pain, redness, or swelling. IV flushed thoroughly. (Electronically signed by Andrea Vidal R.N. - 07/09/2016 19:43) 07/09/2016 19:49 17:55 07/09/2016 Site #[address] upon admission; patent, no pain and no signs of infiltration (IV infusing in site). (Electronically signed by Andrea Vidal R.N. - 07/09/2016 19:49)
--- NOTE | 2016-07-09 16:21 | ED ORDER SUMMARY ---
..... Patient: BINTA GÓMEZ SR OrderSheet [facility] VisitID: [id number] [address] [place] [address] 86y, M Registration Date/Time: 07/09/2016 ORDER SHEET Weight: 81.6 kg (stated) Allergies: Erythromycin GENERAL ORDERS: Chest 1V Urgent (13:[facility] (Ack 13:21 TBergley) (13:36 TBergley) Investment Counselor (Continuous) (13:07/09/2016 [facility] (Ack 13:21 TBergley) (13:27 JRomanelli R.N.) UA-Culture if indicated Urgent (:07/09/2016 [facility] (Ack 13:21 TBergley) (14:01 JRomanelli R.N.) Cardiac Panel Stat [facility] ([facility] 13:21 TBergley) (13:47 JRomanelli R.N.) BNP Urgent (13:07/09/2016 PHpachinson DO) (Ack 13:21 TBergley) (13:47 JRomanelli R.N.) Amylase Urgent (13:07/09/2016 [facility]) (Ack 13:21 TBergley) (13:47 JRomanelli R.N.) TSH Urgent (13:07/09/2016 [facility]) (Ack 13:21 TBergley) (13:47 JRomanelli R.N.) PT with INR Urgent (13:07/09/2016 [facility]) (Ack 13:21 TBergley) (13:47 JRomanelli R.N.) Oxygen (2 L/min) (NC) (13:07/09/2016 [facility]) (Ack 13:21 TBergley) (13:27 JRomanelli R.N.) Pulse oximeter (13:07[facility]09/2016 [facility] (Ack 13:21 TBergley) (13:27 JRomanelli R.N.) EKG - ER Stat (13:19 07/09/2016 [facility]) (Ack 13:21 TBergley) (13:34 OHernandez) Vitals (13:19 07/09/2016 [facility]) (Ack 13:21 TBergley) (13:27 omanelli R.N.) POC Glucose (13:19 07/09/2016 [facility]) (Ack 13:21 TBergley) (14:01 JRomanelli R.N.) CT Head wo Cont (and ?new right facial droop) Urgent (14:08 07/09/2016 [facility]) (Ack 14:34 TBergley) (15:41 TBergley) Call (Place call to): (Dr Maria) (14:33 07/09/2016 [facility]) (Ack 14:34 TBergley) (14:41 TBergley) Call (Place call to): (Dr Soto) (16:07 07/09/2016 [facility]) (16:09 TBergley) Call (Place call to): (Dr Maria) (16:13 07/09/2016 [facility]) (Ack 16:15 TBergley) (16:19 TBergley) MEDICATION ORDERS: IV FLUIDS: IV NS : initial bolus 250 mL (1000 mL/hr), then 250 mL/hr for X3 (NOW) (13:19 07/09/2016 [facility]) (13:27 omanelli R.N.) IV#2 NS : initial bolus none -, then 100 mL/hr (NOW) (17:44 07/09/2016 Michaelelli R.N. verbal order read back to [facility]) (17:46 Michaelelli R.N.) ORDER SHEET NOTES: [Electronically signed by Andrea Vidal R.N. (19:06 07/09/2016)] [Electronically signed by Alexandre Grider DO (19:52 07/09/2016)] [Electronically locked/signed by Andrea Vidal R.N. (19:06 07/09/2016)]
--- NOTE | 2016-07-09 16:21 | ED NURSING NOTES ---
Clinical Report - [facility] [address] [place] [address] 07/09/2016 13:07 Patient: BINTA GÓMEZ SR TRIAGE Triage time 13:10 Jul 09 2016. Acuity: LEVEL 3. Chief Complaint: (Syncopal Episode). Alert. JAMI COMA SCORE: Jami Coma Scale: 15- eyes open spontaneously (4); best verbal response- oriented x 4 (5); best motor response- obeys commands (6). --13:22 Andrea Vidal R.N. 13:11 07/09/16. BP: 197/96. HR: 74. RR: 14. O2 saturation: 92% on room air. Temp: 95.6 F. Pain level now: 0/10. --13:22 Andrea Vidal R.N. 14:54 07/09/16. BP: 125/84. HR: 62. RR: 16. O2 saturation: 20%. Pain level now: 0/10. --15:06 Andrea Vidal R.N. Weight: 81.6 kg stated. Height/Length: 71 inches Per Patient. BMI: 25.1. --13:16 Andrea Vidal R.N. Medications Aspirin Oral (Tablet Chewable 81 mg) 1 tablet, daily. Carbidopa-Levodopa Oral (Tablet 25-100 mg) 1 tablet, 4x a day. Furosemide Oral 40 mg, 2x a day. Ipratropium-Albuterol Inhalation (Solution 0.5-2.5 (3) mg/3mL) 1 teaspoon, q 4-6 hrs prn. Lisinopril Oral 10 mg, daily. Lovastatin Oral (Tablet 40 mg) 1 tablet, at bedtime. Metoprolol Succinate ER Oral (Tablet Extended Release 24 Hour 50 mg) 1/2 tablet, daily. Rivastigmine Tartrate Oral (Capsule 1.5 mg) 1 capsule, 2 x daily. --13:15 Andrea Vidal R.N. Vitamin D3 2000 Units, daily. --14:58 Andrea Vidal R.N. The following entry was struck by Andrea Vidal R.N., 15:05 (07/09/16) Reason - other. <<[facility] ENTRY-- Mirtazapine Oral. --13:15 Andrea Vidal R.N. --END STRIKE>> The following entry was struck and corrected by Andrea Vidal R.N., 15:04 (07/09/16) Reason for correction - other(correction). [facility] F[facility]. --13:15 Andrea Vidal R.N. --END STRIKE>> The following entry was struck and corrected by Andrea Vidal R.N., 15:02 (07/09/16) Reason for correction - other(correction). <<[facility] ENTRY-- Ipratropium-Albuterol Inhalation. --13:15 Andrea Vidal R.N. --END STRIKE>> The following entry was struck and corrected by Andrea Vidal R.N., 15:00 (07/09/16) Reason for correction - other(correction). <<[facility] ENTRY-- Rivastigmine Tartrate Oral. --13:15 Andrea Vidal R.N. --END STRIKE>> The following entry was struck and corrected by Andrea Vidal R.N., 14:59 (07/09/16) Reason for correction - other(correction). <<[facility] ENTRY-- Lisinopril Oral. --13:15 Andrea Vidal R.N. --END STRIKE>> The following entry was struck and corrected by Andrea Vidal R.N., 14:58 (07/09/16) Reason for correction - other(correction). <<[facility] ENTRY-- Lovastatin Oral. --13:15 Andrea Vidal R.N. --END STRIKE>> The following entry was struck by Andrea Vidal R.N., 14:57 (07/09/16) Reason - other. <<[facility] ENTRY-- Vitamin D Oral. --13:15 Andrea Vidal R.N. --END STRIKE>> The following entry was struck and corrected by Andrea Vidal R.N., 14:56 (07/09/16) Reason for correction - other(correction). <<[facility]-- Metoprolol Succinate ER Oral. --13:15 Andrea Vidal R.N. --END STRIKE>> The following entry was struck and corrected by Andrea Vidal R.N., 14:55 (07/09/16) Reason for correction - other(correction). <<[facility]-- Carbidopa-Levodopa Oral. --13:15 Andrea Vidal R.N. --END STRIKE>> The following entry was struck and corrected by Andrea Vidal R.N., 14:55 (07/09/16) Reason for correction - other(correction). <<[facility]-- Aspirin Oral. --13:15 Andrea Vidal R.N. --END STRIKE>>. Allergies Erythromycin. --13:15 Andrea Vidal R.N. (old records). --13:22 Andrea Vidal R.N. History Arrived by EMS. Historian: patient. Unaccompanied. ( Syncopal Episode with LOC for ~ 5 minutes according to EMS.). This started just prior to arrival and today. 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 SOCIAL HX: Former smoker, end date 1979. No alcohol use or drug use. No infectious disease exposure. ABUSE ASSESSMENT: No report of abuse. NUTRITIONAL RISK ASSESSMENT: The nutritional risk assessment revealed no deficiencies. FUNCTIONAL ASSESSMENT: Functional assessment: no impairments noted. FALL RISK ASSESSMENT: Fall risk assessment completed. Risk factors identified include patient age greater than 65 years and history of fall and fainting. LEARNING NEEDS ASSESSMENT: A learning needs assessment was performed. The patient exhibits a readiness to learn. --13:22 Andrea Vidal R.N. PROBLEMS: Near Syncope. Congestive Heart Failure. Nephrolithiasis. Hyperlipidemia. Hydronephrosis. Abdominal aortic aneurysm. Edema. Chest Wall Pain. Dementia. Depression. Pneumonia. Subconjunctival Hemorrhage. Parkinson's Disease. Hypertension. --13:19 Andrea Vidal R.N. ADDITIONAL SURGERIES: Back Surgery. 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 --13:19 Andrea Vidal R.N. Interventions ID and allergy band on patient. To treatment room. --13:22 Andrea Vidal R.N. PHYSICAL ASSESSMENT To room via stretcher. GENERAL / NEURO / PSYCH: Alert. Oriented X 4. HEENT: No facial asymmetry noted. Mucous membranes are pink. RESPIRATORY: Respirations not labored. CVS: Cardiac rhythm: atrial fibrillation. GI / : Abdomen soft and nontender. SKIN: Skin is warm and dry. Poor skin turgor. --13:24 Andrea Vidal R.N. <<[facility] ENTRY-- GENERAL / NEURO / PSYCH: ( (L)-sided facial droop). --13:39 Andrea Vidal R.N. --END STRIKE>> Correction --14:41 Andera Vidal R.N. GENERAL / NEURO / PSYCH: The patient is disoriented (month of year and president). --13:40 Andrea Vidal R.N. 13:39. GENERAL / NEURO / PSYCH: ( (R)-sided facial droop). --14:43 Andrea Vidal R.N. NURSING PROGRESS NOTES Patient gowned. Reassurance given to the patient. Patient identifiers checked. Call light placed in reach. Side rails up x 2. Bed placed in lowest position. Brakes of bed on. Patient ready for evaluation- chart flagged and ED physician notified. --13:24 Andrea Vidal R.N. 13:11 07/09/2016 Site #1 started prior to arrival by EMS via IV in the left forearm with an 20g angiocath, with aseptic technique and good blood return (Field start by EMS--400mL infused in the field INDUSTRIAL YARD BRAKE COUPLER). --13:27 Andrea Vidal R.N. 13:27 07/09/2016 Started bag #1 1000 mL IV Fluids IV NS (Saline); at 1000 mL/hr over 15 minute(s) via site #1 via IV pump. Allergies verified and confirmed 5 rights. IV patency established. IV site checked: no pain, redness, or swelling. IV flushed thoroughly pre- and post-medication administration. --13:27 Andrea Vidal R.N. <<[facility] ENTRY-- 13:36 07/09/2016 IV Fluids IV NS Bag Change: bag #1 discontinued. Total amount infused: 500. STARTED bag #2 (1000 mL) at 1000 mL/hr via IV pump. Confirmed 5 rights. IV patency established. IV site checked: no pain, redness, or swelling. IV flushed thoroughly. --13:46 Andrea Vidal R.N. --END STRIKE>> Correction. --13:47 Andrea Vidal R.N. 13:36 07/09/2016 IV Fluids IV NS Bag Change: bag #1 discontinued. Total amount infused: 500. STARTED bag #2 (1000 mL) at 250 mL/hr via IV pump. Confirmed 5 rights. IV patency established. IV site checked: no pain, redness, or swelling. IV flushed thoroughly. --13:47 Andrea Vidal R.N. 13:45 07/09/16. Finger stick glucose: 135 mg/dL; performed by nurse; result shown to the ED physician. --13:50 Andrea Vidal R.N. EKG time: (1331). EKG was ordered, performed by a tech and shown to the ED physician. --13:56 Claudette Rondon 13:50 07/09/16. Portable chest x-ray performed and shown to the ED physician. --14:13 Andrea Vidal R.N. 14:00 07/09/16. Patient ID band checked for patient name, birthdate and medical record number: patient confirmed. Instructions provided to collect clean catch urine and patient verbalized understanding. Clean catch urine collected with return of yellow-colored clear urine; odor is normal; sample sent to lab for urinalysis and culture. Specimen labeled in the presence of the patient. --14:14 Andrea Vidal R.N. 14:44 07/09/16. BP: 190/83. HR: 68 (irregularly-irregular). RR: 16. O2 saturation: 95% on nasal cannula at 2 liters/minute. --14:45 Andrea Vidal R.N. 15:05 07/09/16. Temp: 97.6 F. --15:08 Andrea Vidal R.N. 17:32 07/09/2016 IV Fluids IV NS Discontinued: bag #1 infused. Total amount infused: 1000 mL. IV patency established. IV site checked: no pain, redness, or swelling. IV flushed thoroughly. --17:47 Andrea Vidal R.N. <<[facility] ENTRY-- 17:36 07/09/2016 Started bag #1 1000 mL IV Fluids IV#2 NS (Saline); at 100 mL/hr over 10 hour(s) via site #1 via IV pump. Allergies verified and confirmed 5 rights. IV patency established. IV site checked: no pain, redness, or swelling. IV flushed thoroughly pre- and post-medication administration. --17:46 Andrea Vidal R.N. --END STRIKE>> Correction. --17:47 Andrea Vidal R.N. 17:36 07/09/2016 Started bag #2 1000 IV Fluids IV#2 NS (Saline); at 100 mL/hr over 10 hour(s) via site #1 via IV pump. Allergies verified and confirmed 5 rights. IV patency established. IV site checked: no pain, redness, or swelling. IV flushed thoroughly pre- and post-medication administration. --17:47 Andrea Vidal R.N. 17:00 07/09/16. BP: 156/88. HR: 72. RR: 16. O2 saturation: 98% on room air. Pain level now: 0/10. --19:05 Andrea Vidal R.N. DISPOSITION / DISCHARGE Departure time: 1755. --18:41 Andrea Vidal R.N. 17:50 07/09/16. BP: 149/77. HR: 69. RR: 20. O2 saturation: 97% on nasal cannula at 2 liters/minute. Temp: 98.6 F (oral). Pain level now: 0/10. --19:01 Andrea Vidal R.N. 17:55. Admitted to Acute Care. Transported via stretcher by [email or web address] with IV and O2. Patient's personal items; items were placed in belongings bag and transported with the patient. --19:03 Andrea Vidal R.N. Locked/Released at 07/09/2016 19:06 by Andrea Vidal R.N.
--- NOTE | 2016-07-09 16:21 | ED ORDER SUMMARY ---
..... Patient: BINTA GÓMEZ SR OrderSheet [facility] VisitID: [id number] [address] [place] [address] 86y, M Registration Date/Time: 07/09/2016 ORDER SHEET Weight: 81.6 kg (stated) Allergies: Erythromycin GENERAL ORDERS: Chest 1V [facility] (Ack 13:21 TBergley) (13:36 TBergley) Project Coordinator Rn (Continuous) (13:07/[facility] (Ack 13:21 TBergley) (13:27 JRomanelli R.N.) UA-Culture if indicated Urgent (:07/09/[facility] (Ack 13:21 TBergley) (14:01 JRomanelli R.N.) Card[facility] Panel Stat [facility] ([facility]ck 13:21 TBergley) (13:47 JRomanelli R.N.) BNP Urgent (13:07/09/2016 [facility] DO) (Ack 13:21 TBergley) (13:47 JRomanelli R.N.) Amylase Urgent (13:07[facility]09/[facility] (Ack 13:21 TBergley) (13:47 JRomanelli R.N.) TSH Urgent (13:07/09/2016 [facility] (Ack 13:21 TBergley) (13:47 JRomanelli R.N.) PT with INR Urgent (13:07/09/[facility] (Ack 13:21 TBergley) (13:47 JRomanelli R.N.) Oxygen (2 L/min) (NC) (13:07/09/[facility] (Ack 13:21 TBergley) (13:27 JRomanelli R.N.) Pulse oximeter (13:07[facility]09/2016 [facility] (Ack 13:21 TBergley) (13:27 JRomanelli R.N.) EKG - ER Stat (13:19 07/09/2016 [facility] (Ack 13:21 TBergley) (13:34 OHernandez) Vitals (13:19 07/09/[facility] (Ack 13:21 TBergley) (13:27 omanelli R.N.) POC Glucose (13:19 07/09/2016 [facility] (Ack 13:21 TBergley) (14:01 JRomanelli R.N.) CT Head wo Cont (and ?new right facial droop) Urgent (14:08 07/09/2016 [facility] (Ack 14:34 TBergley) (15:41 TBergley) Call (Place call to): (Dr Maria) (14:33 07/09/2016 [facility] (Ack 14:34 TBergley) (14:41 TBergley) Call (Place call to): (Dr Soto) (16:07 07/09/2016 [facility]) (16:09 TBergley) Call (Place call to): (Dr Maria) (16:13 07/09/2016 [facility] (Ack 16:15 TBergley) (16:19 TBergley) MEDICATION ORDERS: IV FLUIDS: IV NS : initial bolus 250 mL (1000 mL/hr), then 250 mL/hr for X3 (NOW) (13:19 07/09/2016 [facility]) (13:27 omanelli R.N.) IV#2 NS : initial bolus none -, then 100 mL/hr (NOW) (17:44 07/09/2016 Michaelelli R.N. verbal order read back to [facility]) (17:46 Michaelelli R.N.) ORDER SHEET NOTES: [Electronically signed by Andrea Vidal R.N. (19:06 07/09/2016)] [Electronically signed by Alexandre Grider DO (19:52 07/09/2016)] [Electronically locked/signed by Andrea Vidal R.N. (19:06 07/09/2016)]
--- NOTE | 2016-07-09 16:21 | ED NURSING NOTES ---
Clinical Report - Nurs[facility] [address] [place] [address] 07/09/2016 13:07 Patient: BINTA GÓMEZ SR TRIAGE Triage time 13:10 Jul 09 2016. Acuity: LEVEL 3. Chief Complaint: (Syncopal Episode). Alert. JAMI COMA SCORE: Jami Coma Scale: 15- eyes open spontaneously (4); best verbal response- oriented x 4 (5); best motor response- obeys commands (6). --13:22 Andrea Vidal R.N. 13:11 07/09/16. BP: 197/96. HR: 74. RR: 14. O2 saturation: 92% on room air. Temp: 95.6 F. Pain level now: 0/10. --13:22 Andrea Vidal R.N. 14:54 07/09/16. BP: 125/84. HR: 62. RR: 16. O2 saturation: 20%. Pain level now: 0/10. --15:06 Andrea Vidal R.N. Weight: 81.6 kg stated. Height/Length: 71 inches Per Patient. BMI: 25.1. --13:16 Andrea Vidal R.N. Medications Aspirin Oral (Tablet Chewable 81 mg) 1 tablet, daily. Carbidopa-Levodopa Oral (Tablet 25-100 mg) 1 tablet, 4x a day. Furosemide Oral 40 mg, 2x a day. Ipratropium-Albuterol Inhalation (Solution 0.5-2.5 (3) mg/3mL) 1 teaspoon, q 4-6 hrs prn. Lisinopril Oral 10 mg, daily. Lovastatin Oral (Tablet 40 mg) 1 tablet, at bedtime. Metoprolol Succinate ER Oral (Tablet Extended Release 24 Hour 50 mg) 1/2 tablet, daily. Rivastigmine Tartrate Oral (Capsule 1.5 mg) 1 capsule, 2 x daily. --13:15 Andrea Vidal R.N. Vitamin D3 2000 Units, daily. --14:58 Andrea Vidal R.N. The following entry was struck by Andrea Vidal R.N., 15:05 (07/09/16) Reason - other. <<[facility] ENTRY-- Mirtazapine Oral. --13:15 Andrea Vidal R.N. --END STRIKE>> The following entry was struck and corrected by Andrea Vidal R.N., 15:04 (07/09/16) Reason for correction - other(correction). [facility]. --13:15 Andrea Vidal R.N. --END STRIKE>> The following entry was struck and corrected by Andrea Vidal R.N., 15:02 (07/09/16) Reason for correction - other(correction). <<[facility] ENTRY-- Ipratropium-Albuterol Inhalation. --13:15 Andrea Vidal R.N. --END STRIKE>> The following entry was struck and corrected by Andrea Vidal R.N., 15:00 (07/09/16) Reason for correction - other(correction). <<[facility] ENTRY-- Rivastigmine Tartrate Oral. --13:15 Andrea Vidal R.N. --END STRIKE>> The following entry was struck and corrected by Andrea Vidal R.N., 14:59 (07/09/16) Reason for correction - other(correction). <<[facility] ENTRY-- Lisinopril Oral. --13:15 Andrea Vidal R.N. --END STRIKE>> The following entry was struck and corrected by Andrea Vidal R.N., 14:58 (07/09/16) Reason for correction - other(correction). <<[facility] ENTRY-- Lovastatin Oral. --13:15 Andrea Vidal R.N. --END STRIKE>> The following entry was struck by Andrea Vidal R.N., 14:57 (07/09/16) Reason - other. <<[facility] ENTRY-- Vitamin D Oral. --13:15 Andrea Vidal R.N. --END STRIKE>> The following entry was struck and corrected by Andrea Vidal R.N., 14:56 (07/09/16) Reason for correction - other(correction). <<[facility] EN[facility]-- Metoprolol Succinate ER Oral. --13:15 Andrea Vidal R.N. --END STRIKE>> The following entry was struck and corrected by Andrea Vidal R.N., 14:55 (07/09/16) Reason for correction - other(correction). <<[facility]-- Carbidopa-Levodopa Oral. --13:15 Andrea Vidal R.N. --END STRIKE>> The following entry was struck and corrected by Andrea Vidal R.N., 14:55 (07/09/16) Reason for correction - other(correction). <<[facility] EN[facility]-- Aspirin Oral. --13:15 Andrea Vidal R.N. --END STRIKE>>. Allergies Erythromycin. --13:15 Andrea Vidal R.N. (old records). --13:22 Andrea Vidal R.N. History Arrived by EMS. Historian: patient. Unaccompanied. ( Syncopal Episode with LOC for ~ 5 minutes according to EMS.). This started just prior to arrival and today. Treatment INDUSTRIAL THERAPIST: None. SOCIAL HX: Former smoker, end date 1979. No alcohol use or drug use. No infectious disease exposure. ABUSE ASSESSMENT: No report of abuse. NUTRITIONAL RISK ASSESSMENT: The nutritional risk assessment revealed no deficiencies. FUNCTIONAL ASSESSMENT: Functional assessment: no impairments noted. FALL RISK ASSESSMENT: Fall risk assessment completed. Risk factors identified include patient age greater than 65 years and history of fall and fainting. LEARNING NEEDS ASSESSMENT: A learning needs assessment was performed. The patient exhibits a readiness to learn. --13:22 Andrea Vidal R.N. PROBLEMS: Near Syncope. Congestive Heart Failure. Nephrolithiasis. Hyperlipidemia. Hydronephrosis. Abdominal aortic aneurysm. Edema. Chest Wall Pain. Dementia. Depression. Pneumonia. Subconjunctival Hemorrhage. Parkinson's Disease. Hypertension. --13:19 Andera Vidal R.N. ADDITIONAL SURGERIES: Back Surgery. 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 --13:19 Andrea Vidal R.N. Interventions ID and allergy band on patient. To treatment room. --13:22 Andrea Vidal R.N. PHYSICAL ASSESSMENT To room via stretcher. GENERAL / NEURO / PSYCH: Alert. Oriented X 4. HEENT: No facial asymmetry noted. Mucous membranes are pink. RESPIRATORY: Respirations not labored. CVS: Cardiac rhythm: atrial fibrillation. GI / : Abdomen soft and nontender. SKIN: Skin is warm and dry. Poor skin turgor. --13:24 Andrea Vidal R.N. <<[facility] ENTRY-- GENERAL / NEURO / PSYCH: ( (L)-sided facial droop). --13:39 Andrea Vidal R.N. --END STRIKE>> Correction --14:41 Andrea Vidal R.N. GENERAL / NEURO / PSYCH: The patient is disoriented (month of year and president). --13:40 Andrea Vidal R.N. 13:39. GENERAL / NEURO / PSYCH: ( (R)-sided facial droop). --14:43 Andrea Vidal R.N. NURSING PROGRESS NOTES Patient gowned. Reassurance given to the patient. Patient identifiers checked. Call light placed in reach. Side rails up x 2. Bed placed in lowest position. Brakes of bed on. Patient ready for evaluation- chart flagged and ED physician notified. --13:24 Andrea Vidal R.N. 13:11 07/09/2016 Site #1 started prior to arrival by EMS via IV in the left forearm with an 20g angiocath, with aseptic technique and good blood return (Field start by EMS--400mL infused in the field INDUSTRIAL THERAPIST). --13:27 Andrea Vidal R.N. 13:27 07/09/2016 Started bag #1 1000 mL IV Fluids IV NS (Saline); at 1000 mL/hr over 15 minute(s) via site #1 via IV pump. Allergies verified and confirmed 5 rights. IV patency established. IV site checked: no pain, redness, or swelling. IV flushed thoroughly pre- and post-medication administration. --13:27 Andrea Vidal R.N. <<[facility] ENTRY-- 13:36 07/09/2016 IV Fluids IV NS Bag Change: bag #1 discontinued. Total amount infused: 500. STARTED bag #2 (1000 mL) at 1000 mL/hr via IV pump. Confirmed 5 rights. IV patency established. IV site checked: no pain, redness, or swelling. IV flushed thoroughly. --13:46 Andrea Vidal R.N. --END STRIKE>> Correction. --13:47 Andrea Vidal R.N. 13:36 07/09/2016 IV Fluids IV NS Bag Change: bag #1 discontinued. Total amount infused: 500. STARTED bag #2 (1000 mL) at 250 mL/hr via IV pump. Confirmed 5 rights. IV patency established. IV site checked: no pain, redness, or swelling. IV flushed thoroughly. --13:47 Andrea Vidal R.N. 13:45 07/09/16. Finger stick glucose: 135 mg/dL; performed by nurse; result shown to the ED physician. --13:50 Andrea Vidal R.N. EKG time: (1331). EKG was ordered, performed by a tech and shown to the ED physician. --13:56 Claudette Rondon 13:50 07/09/16. Portable chest x-ray performed and shown to the ED physician. --14:13 Andrea Vidal R.N. 14:00 07/09/16. Patient ID band checked for patient name, birthdate and medical record number: patient confirmed. Instructions provided to collect clean catch urine and patient verbalized understanding. Clean catch urine collected with return of yellow-colored clear urine; odor is normal; sample sent to lab for urinalysis and culture. Specimen labeled in the presence of the patient. --14:14 Andrea Vidal R.N. 14:44 07/09/16. BP: 190/83. HR: 68 (irregularly-irregular). RR: 16. O2 saturation: 95% on nasal cannula at 2 liters/minute. --14:45 Andrea Vidal R.N. 15:05 07/09/16. Temp: 97.6 F. --15:08 Andrea Vidal R.N. 17:32 07/09/2016 IV Fluids IV NS Discontinued: bag #1 infused. Total amount infused: 1000 mL. IV patency established. IV site checked: no pain, redness, or swelling. IV flushed thoroughly. --17:47 Andrea Vidal R.N. <<[facility] ENTRY-- 17:36 07/09/2016 Started bag #1 1000 mL IV Fluids IV#2 NS (Saline); at 100 mL/hr over 10 hour(s) via site #1 via IV pump. Allergies verified and confirmed 5 rights. IV patency established. IV site checked: no pain, redness, or swelling. IV flushed thoroughly pre- and post-medication administration. --17:46 Andrea Vidal R.N. --END STRIKE>> Correction. --17:47 Andrea Vidal R.N. 17:36 07/09/2016 Started bag #2 1000 IV Fluids IV#2 NS (Saline); at 100 mL/hr over 10 hour(s) via site #1 via IV pump. Allergies verified and confirmed 5 rights. IV patency established. IV site checked: no pain, redness, or swelling. IV flushed thoroughly pre- and post-medication administration. --17:47 Andrea Vidal R.N. 17:00 07/09/16. BP: 156/88. HR: 72. RR: 16. O2 saturation: 98% on room air. Pain level now: 0/10. --19:05 Andrea Vidal R.N. DISPOSITION / DISCHARGE Departure time: 1755. --18:41 Andrea Vidal R.N. 17:50 07/09/16. BP: 149/77. HR: 69. RR: 20. O2 saturation: 97% on nasal cannula at 2 liters/minute. Temp: 98.6 F (oral). Pain level now: 0/10. --19:01 Andrea Vidal R.N. 17:55. Admitted to Acute Care. Transported via stretcher by [id number] with IV and O2. Patient's personal items; items were placed in belongings bag and transported with the patient. --19:03 Andrea Vidal R.N. Locked/Released at 07/09/2016 19:06 by Andrea Vidal R.N.
[2016-07-09 18:52] VITALS: BP 165/75
--- NOTE | 2016-07-09 19:52 | ED DISCHARGE INSTRUCTIONS ---
Patient: BINTA GÓMEZ SR General Instructions [facility] VisitID: [id number] [address] [place] [address] 86y, M Registration Date/Time: 07/09/2016 Syncope of unknown cause .12 lead EKG performed. Chronic dementia. Chronic moderate systolic, congestive heart failure. Essential hypertension. Parkinson's Disease. Right facial droop - possibly new. INSTRUCTIONS Follow-up: Screening today revealed the patient's blood pressure to be in the hypertensive range. The patient should follow up with a primary care provider for blood pressure management. The patient was admitted and blood pressure will be managed during the admission. (Electronically signed by Alexandre Grider DO 07/09/2016 19:52)
--- NOTE | 2016-07-09 19:52 | ED MAR SUMMARY ---
..... Medication Administration Record [facility] [address] [place] [address] Patient: BINTA GÓMEZ Visit ID: [id number] 86y, M Weight: 81.6 kg Height/Length: 71 in BMI: 25.1 ALLERGIES: Erythromycin Start 13:27 07/09/2016 Andrea Vidal RNathalieN., Stop 17:32 07/09/2016 Andrea Vidal R.N. Medication Administered: IV NS (SALINE), Dose: IV Fluids over 15 minute(s), Rate: 1000 mL/hr, Dispensed: 1000 mL bag, Site: #1 left forearm. Medication Ordered: IV NS : initial bolus 250 mL (1000 mL/hr), then 250 mL/hr for X3 (NOW). Start 17:36 07/09/2016 Andrea Vidal, R.N., Continued Upon Admission 17:55 07/09/2016 Andrea Vidal, R.N. Medication Administered: IV#2 NS (SALINE), Dose: IV Fluids over 10 hour(s), Rate: 100 mL/hr, Dispensed: 1000 mL bag, Site: #1 left forearm. Medication Ordered: IV#2 NS : initial bolus none -, then 100 mL/hr (NOW).
--- NOTE | 2016-07-09 19:52 | ED DISCHARGE INSTRUCTIONS ---
Patient: BINTA GÓMEZ SR General Instructions [facility] VisitID: [id number] [address] [place] [address] 86y, M Registration Date/Time: 07/09/2016 Syncope of unknown cause .12 lead EKG performed. Chronic dementia. Chronic moderate systolic, congestive heart failure. Essential hypertension. Parkinson's Disease. Right facial droop - possibly new. INSTRUCTIONS Follow-up: Screening today revealed the patient's blood pressure to be in the hypertensive range. The patient should follow up with a primary care provider for blood pressure management. The patient was admitted and blood pressure will be managed during the admission. (Electronically signed by Alexandre Grider DO 07/09/2016 19:52)
--- NOTE | 2016-07-09 19:52 | ED MED RECONCILIATION SUMMARY ---
Patient: BINTA GÓMEZ SR Medication Reconciliation Report [facility] VisitID: [id number] [address] [place] [address] 86y, M Registration Date/Time: 07/09/2016 Weight: 81.6 kg Height/Length: 71 in. BMI: 25.1 ALLERGIES: Erythromycin The patient's Home Medications are listed below: THE FOLLOWING MEDICATIONS NEED TO BE RECONCILED: Aspirin Oral (81 mg) 1 tablet, daily Carbidopa-Levodopa Oral (25-100 mg) 1 tablet, 4x a day Furosemide Oral 40 mg, 2x a day Ipratropium-Albuterol Inhalation (0.5-2.5 (3) mg/3mL) 1 teaspoon, q 4-6 hrs prn Lisinopril Oral 10 mg, daily Lovastatin Oral (40 mg) 1 tablet, at bedtime Metoprolol Succinate ER Oral (50 mg) 1/2 tablet, daily Rivastigmine Tartrate Oral (1.5 mg) 1 capsule, 2 x daily Vitamin D3 2000 Units, daily The source(s) of the original Home Medication information: old records The following Medications were given to the patient in the Emergency Department: IV NS IV Fluids bolus 0, then 1000 mL/hr, administered: 07/09/2016 1:27:00 PM IV#2 NS IV Fluids bolus 0, then 100 mL/hr, administered: 07/09/2016 5:36:00 PM The following Medications were prescribed to the patient: None.
--- NOTE | 2016-07-09 19:52 | ED MAR SUMMARY ---
..... Medication Administration Record [facility] [address] [place] [address] Patient: BINTA GÓMEZ Visit ID: [id number] 86y, M Weight: 81.6 kg Height/Length: 71 in BMI: 25.1 ALLERGIES: Erythromycin Start 13:27 07/09/2016 Andrea Vidal RNathalieN., Stop 17:32 07/09/2016 Andrea Vidal R.N. Medication Administered: IV NS (SALINE), Dose: IV Fluids over 15 minute(s), Rate: 1000 mL/hr, Dispensed: 1000 mL bag, Site: #1 left forearm. Medication Ordered: IV NS : initial bolus 250 mL (1000 mL/hr), then 250 mL/hr for X3 (NOW). Start 17:36 07/09/2016 Andrea Vidal, R.N., Continued Upon Admission 17:55 07/09/2016 Andrea Vidal, R.N. Medication Administered: IV#2 NS (SALINE), Dose: IV Fluids over 10 hour(s), Rate: 100 mL/hr, Dispensed: 1000 mL bag, Site: #1 left forearm. Medication Ordered: IV#2 NS : initial bolus none -, then 100 mL/hr (NOW).
--- NOTE | 2016-07-09 19:52 | ED MED RECONCILIATION SUMMARY ---
Patient: BINTA GÓMEZ SR Medication Reconciliation Report [facility] VisitID: [id number] [address] [place] [address] 86y, M Registration Date/Time: 07/09/2016 Weight: 81.6 kg Height/Length: 71 in. BMI: 25.1 ALLERGIES: Erythromycin The patient's Home Medications are listed below: THE FOLLOWING MEDICATIONS NEED TO BE RECONCILED: Aspirin Oral (81 mg) 1 tablet, daily Carbidopa-Levodopa Oral (25-100 mg) 1 tablet, 4x a day Furosemide Oral 40 mg, 2x a day Ipratropium-Albuterol Inhalation (0.5-2.5 (3) mg/3mL) 1 teaspoon, q 4-6 hrs prn Lisinopril Oral 10 mg, daily Lovastatin Oral (40 mg) 1 tablet, at bedtime Metoprolol Succinate ER Oral (50 mg) 1/2 tablet, daily Rivastigmine Tartrate Oral (1.5 mg) 1 capsule, 2 x daily Vitamin D3 2000 Units, daily The source(s) of the original Home Medication information: old records The following Medications were given to the patient in the Emergency Department: IV NS IV Fluids bolus 0, then 1000 mL/hr, administered: 07/09/2016 1:27:00 PM IV#2 NS IV Fluids bolus 0, then 100 mL/hr, administered: 07/09/2016 5:36:00 PM The following Medications were prescribed to the patient: None.
--- NOTE | 2016-07-09 20:35 | Progress Note ---
Subjective General 86 y.o. male DNR/DNI with multiple medical problems who had a decrease LOC x 5 min associated with large urinary incontinence and high BP. Admitted to observation on tele overnight. Plan for d/c home if neg. ? micturation syncope vs sz vs other.
--- NOTE | 2016-07-09 21:49 | HISTORY AND PHYSICAL ---
ADMITTED: 07/09/2016 CHIEF COMPLAINT: 1. Syncope HISTORY OF PRESENT ILLNESS: The patient was at home. He was walking with a physical therapist when he had an episode of essentially being assisted into a chair and then passing out for an extended period of time, around 5 minutes. He had a large urination at the same time of passing out. There were no jerking movements. The EMS crew arrived. He appeared to be well other than he had elevated blood pressure. By the time he got into the emergency department, he was doing better. The patient has been on a couple liters of oxygen at home and had had some decreased oxygenation at home. He was on 4 liters of oxygen recently for desaturation into the 80s. He was also recently having some increased confusion, hallucinations, seeing things not there prior to the day of admission. MEDICAL/SURGICAL HISTORY: Past medical history: He has had dementia, edema, Parkinson's, abdominal aortic aneurysm, hydronephrosis, hyperlipidemia, hypertension, nephrolithiasis. He has also had a history of sleep apnea and diverticulosis and diverticulitis. Surgeries: He has had back surgery and TURP. MEDICATIONS: Current medications: 1. Metoprolol succinate 50 mg daily. 2. Ipratropium bromide every 6 hours as needed for cough or wheezing. 3. Levodopa/carbidopa 25/100 one p.o. q.i.d. p.r.n. Parkinson's. 4. Mirtazapine. Family states that he has stopped, and I will remove that from his medication list at this time. 5. He is also taking rivastigmine tartrate 1.5 mg b.i.d. 6. Lisinopril 10 mg p.o. daily. 7. Lovastatin 40 mg p.o. daily. 8. Aspirin 81 mg p.o. daily. 9. Vitamin D3 2000 international units daily. ALLERGIES: 1. ERYTHROMYCIN. SOCIAL HISTORY: He is a male, a Rastafarian, 6 children. Cared for at home. His has had some significant illness as well. He is a nonsmoker and nondrinker other than an occasional drink on holidays. He quit smoking in 1979. FAMILY HISTORY: Positive for Parkinson's, diabetes, heart disease, and strokes. REVIEW OF SYSTEMS: The patient has denied any fevers. Shortness of breath. He has had recent pneumonias and history of congestive heart failure as well. He denies bowel or bladder problems other than the urination that was mentioned. No black or bloody stools. No GI issues. PHYSICAL EXAMINATION: GENERAL: He is an awake male who appears alert, follows commands and directions. VITAL SIGNS: Blood pressure was 197/96, heart rate of 74, respirations 14, temperature 95.6 and saturating 92% on room air in the emergency department. HEENT: Extraocular movements intact. Pupils equal, round, and reactive to light. Oropharynx is clear with moist mucous membranes. NECK: Supple without lymphadenopathy. LUNGS: With coarse breath sounds, nonfocal, no rales. ABDOMEN: Soft. It is nontender, nondistended. EXTREMITIES: No significant edema. GENITOURINARY/RECTAL/BREASTS: Deferred. NEUROLOGIC: Cranial nerves II-XII intact. Strength and sensation grossly intact. The patient is slow of speech, though he appears to be understanding of what is going on. LAB/IMAGING: He has minor right basilar scarring and mild cardiomegaly on chest x-ray. A CT of his head showed no acute intracranial abnormality, mild atrophy, white matter changes and ischemic changes. EKG shows normal sinus rhythm, heart rate of 75, and some ectopic beats. Q waves in lead V2. Nonspecific ST and T-wave changes. Unchanged compared to prior. Urinalysis is with specific gravity 1.010 and normal. BNP of 440. INR of 0.9. Comprehensive metabolic panel: Glucose 144, BUN of 35, creatinine 1.1, sodium 144, potassium 3.6, chloride of 103, HCO3 36, magnesium 2.0, calcium 9.0, total protein 6.9, albumin 3.7. Total bilirubin is 0.7, alkaline phosphatase 82, AST of 21, ALT of 8, amylase is 45. CPK 35, troponin I less than 0.05. TSH of 0.77. White count of 6.7, hematocrit 43.3, platelets of 193. IMPRESSION: 1. Syncopal episode. 2. Incontinence of urine at time of episode. 3. Multiple medical problems including a history of pneumonia. 4. Congestive heart failure. 5. Breathing problems. 6. Weakness, for which he was getting physical therapy. 7. Other chronic medical problems including sleep apnea. 8. Hypertension. 9. High cholesterol. PLAN: Admit the patient to the hospital. We will keep him on telemetry in the hospital to monitor his heart rate. Anticipate that we will not find anything that is going to lead to the answer as to why he had this 5 minutes of decreased level of consciousness. I wonder about possible seizure activity with the urination episode, and then maybe some Rommel paralysis, even though he was not shaking at all. The other possibility would be potentially micturition syncope with his large urination at the time of the episode. The patient is doing better now. The elevated blood pressure likely is also related to his blood pressure issues. His last set of vitals, blood pressure was 165/75. I will continue on his home medications for blood pressure and his home medications overall. Anticipate that he will be discharged tomorrow. He will be on observation status.
[2016-07-09 22:53] VITALS: BP 143/61
[2016-07-10 02:45] VITALS: BP 165/95
[2016-07-10 06:26] VITALS: BP 130/44
[2016-07-10 10:23] VITALS: BP 102/60
--- NOTE | 2016-07-10 11:06 | Provider's Discharge Care Plan ---
Problem, Goal, Plan Problem List 1. Atrial fibrillation Instructions: Follow up as directed 2. Weakness Instructions: Take meds as directed, PT/OT at home 3. Syncope and collapse Instructions: call for concerns
--- NOTE | 2016-07-10 11:11 | Progress Note ---
Subjective General Patient is doing well. No issues on tele. Has no concerns and states that he is feeling well at baseline. No cp,sob, or LOC. Physical Exam Vital Signs / I&Os Vital Signs Date Time Temp Pulse Resp B/P Pulse O2 O2 Flow FiO2 Ox Delivery Rate 07/10 1023 98.2 68 22 102/60 95 Room Air 07/10 0818 Room Air 0.0 07/10 0626 98.8 70 18 130/44 91 Room Air 07/10 0245 98.4 66 16 165/95 95 Room Air 07/09 2253 98.2 55 16 143/61 92 Room Air 07/09 2000 Room Air 07/09 1852 98.1 69 16 165/75 95 Room Air I&O 07/10 0000 07/09 1600 07/09 0800 Intake Total 200 Output Total Balance 200 General Appearance Alert HEENT Normal exam Lungs Clear to auscultation Cardiovascular Regular rate and rhythm Abdomen Soft, No tenderness Extremities No edema LAB Results Laboratory Tests 07/10 07/09 07/09 07/09 0543 1350 1330 1330 Chemistry Plasma Sodium (136 - 145 mmol/L) 144 144 Plasma Potassium (3.5 - 5.1 mmol/L) 3.3 3.6 Plasma Chloride (98 - 107 mmol/L) 104 103 CO2 (Enzymatic) (21 - 32 mmol/L) 32 36 BUN (7 - 18 mg/dL) 24 35 Creatinine (0.6 - 1.3 mg/dL) 0.9 1.1 Est GFR ( Amer) (mL/min) >60 >60 Est GFR (Non-Af Amer) (mL/min) >60 >60 Glucose (70 - 110 mg/dL) 97 144 Plasma Calcium (8.5 - 10.1 mg/dL) 8.4 9.0 Plasma Magnesium (1.8 - 2.4 mg/dL) 2.0 Total Bilirubin (0.0 - 1.0 mg/dL) 0.7 AST (15 - 37 U/L) 21 ALT (12 - 78 U/L) 8 Alkaline Phosphatase (46 - 116 U/L) 82 Creatine Kinase (24 - 260 U/L) 35 Troponin (0.00 - 1.5 ng/mL) <0.05 B-Natriuretic Peptide (5 - 100 pg/ml) 440 Total Protein (6.4 - 8.2 g/dL) 6.9 Albumin (3.3 - 5.0 g/dL) 3.7 Amylase (25 - 115 U/L) 45 TSH 3rd Generation (0.30 - 3.74 uIU/mL) 0.766 Coagulation INR (0.8 - 1.2) 0.9 Hematology WBC (4.5 - 11.5 K/uL) 6.7 RBC (4.50 - 5.90 M/uL) 4.68 Hgb (13.5 - 17.5 gm/dL) 14.1 Hct (41.0 - 53.0 %) 43.3 MCV (80 - 100 fL) 92 MCH (26 - 34 pg) 30 RDW (11.6 - 14.8 %) 15.9 Neut % (Auto) (50 - 75 %) 51.9 Lymph % (Auto) (25 - 40 %) 35.8 [place] % (Auto) (3 - 14 %) 9.9 Eos % (Auto) (0 - 4 %) 2.1 Baso % (Auto) (0 - 2 %) 0.3 Plt Count, EDTA (150 - 400 K/uL) 193 PUBS MCHC (31 - 37 g/dL) 33 Urines Urine Color YELLOW Urine Appearance CLEAR Urine pH (5.0 - 8.0) 6.0 Ur Specific [place] (1.010 - 1.030) 1.010 Urine Protein (NEGATIVE) NEGATIVE Urine Ketones (NEGATIVE) NEGATIVE Urine Blood (NEGATIVE) NEGATIVE Urine Nitrite (NEGATIVE) NEGATIVE Urine Bilirubin (NEGATIVE) NEGATIVE Urine Urobilinogen (0.2 - 1.0 EU/dL) 0.2 Ur Leukocyte Esterase (NEGATIVE) NEGATIVE Urine RBC (0 - 1 rbc/hpf) RARE Urine WBC (0 - 1 wbc/hpf) 0-1 Ur Epithelial Cells (0 - 5 EPI/hpf) RARE Urine Bacteria (NONE SEEN) NONE SEEN Urine Glucose (NEGATIVE) NEGATIVE Urine Comment CULT NOT INDICATED 07/09 1319 Chemistry Amylase Cancelled TSH 3rd Generation Cancelled Assessment and Plan Problem List 1. Atrial fibrillation Plan Doing well stable. No sig abnl on tele 2. Weakness Plan is at baseline. 3. Syncope and collapse Plan No more episodes, ? vasovagal, micturation syncope, possible SZ consider f/u neuro as indicated.
== END 2016-07-10 12:04 | disposition home or self-care (01) ==
LOC: ED SRH 13:07 → TRANS SRH 16:43 → ACUTE2 SRH 18:20
PROVIDERS: ADMIT Family Medicine
DX: R55 Syncope and collapse (principal); R32 Unspecified urinary incontinence; R53.1 Weakness; G20 Parkinson's disease; F02.80 Dementia in other diseases classified elsewhere, unspecified severity, without behavioral disturbance, psychotic disturbance, mood disturbance, and anxiety; I11.0 Hypertensive heart disease with heart failure; I50.22 Chronic systolic (congestive) heart failure; I48.91 Unspecified atrial fibrillation; E78.5 Hyperlipidemia, unspecified

== ENCOUNTER 2016-08-21 15:47 | Emergency (ER) | payer OTHER ==
--- NOTE | 2016-08-21 17:22 | DIAGNOSTIC IMAGING REPORT ---
PROCEDURE: CT HEAD WITHOUT CONTRAST INDICATION: SYNCOPE TECHNIQUE: Axial CT images were acquired through the head. Coronal and sagittal reformations were created. COMPARISON: 07/09/2016 FINDINGS: Mild cerebral cortical atrophy. Moderate chronic ventriculomegaly. Minor hypodensity in the periventricular and subcortical white matter. No focal cortical defect. No intracranial hemorrhage or extraaxial fluid collections. There is no mass, mass effect or midline shift. The yang-white matter differentiation is normal. There is no edema. Mild calcific atherosclerosis of the intracranial internal carotid arteries. The calvarium is intact. The paranasal sinuses and mastoid air cells are normally aerated. The extracranial soft tissues and orbits are normal. IMPRESSION: 1. No CT evidence of acute intracranial process. 2. Chronic ventriculomegaly, age related involutional cortical and minor chronic white matter changes. 3. Findings discussed with Dr. Barbosa at [address] scans at this facility use dose modulation, iterative reconstruction, and/or weight-based dosing when appropriate to reduce radiation dose to as low as reasonably achievable.
--- NOTE | 2016-08-21 17:29 | DIAGNOSTIC IMAGING REPORT ---
PROCEDURE: XR CHEST 1 VIEW INDICATION: SYNCOPE TECHNIQUE: Single view chest. 1631 hours COMPARISON: 07/09/[address] chest 05/17/2016 FINDINGS: Stable mild cardiomegaly. No significant central vascular congestion. Strandy bibasilar densities and very small right pleural effusion. No pneumothorax. Intact osseous structures. IMPRESSION: 1. Stable cardiomegaly without acute central venous congestion. 2. Strandy bibasilar opacities and very small right effusion. This could represent edema, infectious, or inflammatory process. Correlate clinically.
--- NOTE | 2016-08-21 19:12 | ED ORDER SUMMARY ---
..... Patient: BINTA GÓMEZ SR OrderSheet [facility] VisitID: [id number] [place] [address] 86y, M Registration Date/Time: 08/21/2016 ORDER SHEET Weight: 84.3 kg (stated) Allergies: Erythromycin GENERAL ORDERS: EKG - ER Stat (15:53 08/21/2016 AMMONimbeck R.N. per protocol) (16:02 PWeiler ER Tech1) Chest 1V Urgent (15:59 08/21/2016 Eliezer KIM) (Ack 16:03 STACYoerner) (16:45 JSimbeck R.N.) Food Writer (Continuous) (16:00 08/21/2016 Eliezer KIM) (16:02 JSimbeck R.N.) (16:03 KHoerner) CT Head wo Cont Urgent (16:00 08/21/2016 Eliezer KIM) (Ack 16:03 Jessica) (16:18 KHoerner) CBC w Diff Urgent (16:00 08/21/2016 Eliezer KIM) (Ack 16:03 STACYoedai) (16:44 JSimbeck R.N.) CMP Urgent (16:00 08/21/2016 Eliezer KIM) (Ack 16:03 STACYoeosmarner) (16:44 JSimbeck R.N.) UA-Culture if indicated Urgent (16:00 08/21/2016 Eliezer KIM) (Ack 16:03 Jessica) (17:07 JSimbeck R.N.) Amylase Urgent (16:00 08/21/2016 Eliezer KIM) (Ack 16:03 Jessica) (16:44 JSimbeck R.N.) Lipase Urgent (16:00 08/21/2016 Eliezer KIM) (Ack 16:03 STACYoeosmarner) (16:44 JSimbeck R.N.) CPK Urgent (16:00 08/21/2016 Eliezer KIM) (Ack 16:03 STACYoedai) (16:44 JSimbeck R.N.) Troponin-I Urgent (16:00 08/21/2016 Eliezer KIM) (Ack 16:03 STACYoedai) (16:45 Chris R.N.) Oxygen (2 L/min) (NC) (16:00 08/21/2016 Eliezer KIM) (16:02 Chris R.N.) Pulse oximeter (16:00 08/21/2016 Eliezer KIM) (16:02 Chris R.N.) (16:03 STACYoedai) Vitals - Orthostatic (16:00 08/21/2016 Eliezer KIM) (17:40 Logan R.N.) MEDICATION ORDERS: IV FLUIDS: IV Saline Lock (16:00 08/21/2016 Eliezer KIM) (16:45 Chris R.N.) IV NS : initial bolus 1000 mL (1000 mL/hr), then none - for X1 (NOW); Urgent (17:51 08/21/2016 Eliezer KIM) (17:57 Chris R.N.) ORDER SHEET NOTES: [Electronically signed by Sonal Santizo R.N. (19:32 08/21/2016)] [Electronically signed by Dez Barbosa MD (21:09 08/21/2016)] [Electronically locked/signed by Sonal Santizo R.N. (19:32 08/21/2016)]
--- NOTE | 2016-08-21 19:12 | ED CLINICAL REPORT ---
Clinical Report - Physicians/Mid Levels [facility] [address] [place] [address] 08/21/2016 15:47 Patient: BINTA GÓEMZ SR Time Seen: 15:59. Arrived- By private vehicle. Historian- patient. HISTORY OF PRESENT ILLNESS Chief Complaint: SINGLE SYNCOPAL EPISODE. The patient has recovered. This occurred today. It was abrupt in onset. Event was witnessed. The patient had no preceding symptoms. At time of event, he had just stood up. The patient lost consciousness completely. No seizure activity or incontinence. Had a single episode. The episode lasted an unknown duration. Similar symptoms previously: Several times. REVIEW OF SYSTEMS No calf pain, chest pain, cough, difficulty breathing or pedal edema. No palpitations, abdominal pain, black stools, bloody stools or constipation. No diarrhea, nausea, vomiting or urinary problems. All systems otherwise negative, except as recorded above. PAST HISTORY ( PCP - Jose M). Problems: Atrial Fibrillation. Syncope. Near Syncope. Congestive Heart Failure. Nephrolithiasis. Hyperlipidemia. Hydronephrosis. Abdominal aortic aneurysm. Edema. Chest Wall Pain. Dementia. Depression. Pneumonia. Subconjunctival Hemorrhage. Parkinson's Disease. Hypertension. Ureterolithiasis. Additional Surgeries: Back Surgery. 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 Medications: Aspirin Oral (Tablet Chewable 81 mg) 1 tablet, daily. Carbidopa-Levodopa Oral (Tablet 25-100 mg) 1 tablet, 4x a day. Furosemide Oral 40 mg, 2x a day. Ipratropium-Albuterol Inhalation (Solution 0.5-2.5 (3) mg/3mL) 1 teaspoon, q 4-6 hrs prn. Lisinopril Oral 10 mg, daily. Lovastatin Oral (Tablet 40 mg) 1 tablet, at bedtime. Metoprolol Succinate ER Oral (Tablet Extended Release 24 Hour 50 mg) 1/2 tablet, daily. Rivastigmine Tartrate Oral (Capsule 1.5 mg) 1 capsule, 2 x daily. Vitamin D3 2000 Units, daily. Allergies: Erythromycin. SOCIAL HISTORY Former smoker, end date 1976. No alcohol use or drug use. Is a local resident. He lives with spouse. FAMILY HISTORY Stroke in first-degree relative (mother). father with Alzheimer's. ADDITIONAL NOTES The nursing notes have been reviewed. PHYSICAL EXAM Vital Signs: 08/21/2016 15:53 BP: 176/76. HR: 71. RR: 20. O2 saturation: 94%. Temp: 97.5 F. Pain level now: 0/10. Have been reviewed. Appearance: Alert. Eyes: Pupils equal, round and reactive to light. No nystagmus. ENT: Normal ENT inspection. Pharynx normal. Neck: Normal inspection. Neck supple. Back: Normal inspection. Skin: Skin warm and dry. Normal skin color. Normal skin turgor. Extremities: Extremities exhibit normal ROM. No calf tenderness. No lower extremity edema. Neuro: Alert. Mood/affect normal. Cranial nerves normal (as tested). No cerebellar findings. (tremulous). LABS, X-RAYS, AND EKG EKG: Q waves in lead V1, V2 and V3. LVH. Left axis deviation. EKG unchanged when compared with prior EKG. (09 July 2016). The study has been independently viewed by me. Chest X-ray: (IMPRESSION: 1. Stable cardiomegaly without acute central venous congestion. 2. Strandy bibasilar opacities and very small right effusion. This could represent edema, infectious, or inflammatory process. Correlate clinically). The X-rays were interpreted by the radiologist and contemporaneously by me. Laboratory Tests: UA-Culture if indicated: (SARAH: 08/21/2016 17:00) ( MsgRcvd 08/21/2016 17:29) Final results Test Result Flag Units (Reference) URINE COLOR STRAW URINE APPEARANCE CLEAR URINE GLUCOSE NEGATIVE (NEGATIVE) URINE BILIRUBIN NEGATIVE (NEGATIVE) URINE KETONE NEGATIVE (NEGATIVE) URINE SPECIFIC GRAVITY <= 1.005 L (1.010-1.030) URINE PH 6.0 (5.0-8.0) URINE PROTEIN NEGATIVE (NEGATIVE) URINE UROBILINOGEN 0.2 EU/dL (0.2-1.0) URINE NITRITE NEGATIVE (NEGATIVE) URINE BLOOD NEGATIVE (NEGATIVE) URINE LEUK ESTERASE NEGATIVE (NEGATIVE) URINE RBC NONE SEEN rbc/hpf (0-1) URINE WBC NONE SEEN wbc/hpf (0-1) URINE EPITHELIAL CELLS NONE SEEN EPI/hpf (0-5) URINE BACTERIA NONE SEEN (NONE SEEN) URINE COMMENT CULT NOT INDICATED URINE CULTURES ARE SET-UP BASED ON THE FOLLOWING CRITERIA:POSITIVE NITRITEPOSITIVE LEUKOCYTE ESTERASEGREATER THAN 10 WHITE BLOOD CELLSMODERATE (2+) OR GREATER BACTERIA CBC w Diff: (SARAH: 08/21/2016 16:40) ( [facility] 08/21/2016 16:54) Final results Test Result Flag Units (Reference) WHITE BLOOD COUNT 7.2 K/uL (4.5-11.5) RED BLOOD COUNT 4.71 M/uL (4.50-5.90) HEMOGLOBIN 14.3 gm/dL (13.5-17.5) HEMATOCRIT 44.1 % (41.0-53.0) MEAN CELL VOLUME 94 fL (80-100) MEAN CORPUSCULAR HGB 30 pg (26-34) MEAN CORPUSCULAR HGB CONC 32 g/dL (31-37) RED CELL DISTRIBUTION WIDTH 14.6 % (11.6-14.8) PLATELET COUNT 193 K/uL (150-400) NEUTROPHIL % 57.3 % (50-75) LYMPH % 29.2 % (25-40) MONO % 9.3 % (3-14) EOSINOPHIL % 3.8 % (0-4) BASOPHIL % 0.4 % (0-2) CMP: (SARAH: 08/21/2016 16:40) ( [facility] 08/21/2016 17:11) Final results Test Result Flag Units (Reference) GLUCOSE 139 H mg/dL (70-110) BUN 34 H mg/dL (7-18) CREATININE 1.3 mg/dL (0.6-1.3) Estimated GFR 55.50 mL/min Estimated GFR- >60 mL/min Note: Persistent reduction over 3 months in eGFR<60 mL/min/1.73 m2 defines CKD. Patients with eGFR values>=60 mL/min/1.73 m2 may also have CKD if evidence ofpersistent proteinuria. Additional information may be foundat www.kidney.org. SODIUM 142 mmol/L (136-145) POTASSIUM 3.6 mmol/L (3.5-5.1) CHLORIDE 102 mmol/L (98-107) CARBON DIOXIDE 33 H mmol/L (21-32) CALCIUM 8.8 mg/dL (8.5-10.1) TOTAL PROTEIN 7.5 g/dL (6.4-8.2) ALBUMIN 3.8 g/dL (3.3-5.0) BILIRUBIN, TOTAL 0.7 mg/dL (0.0-1.0) ALKALINE PHOSPHATASE 75 U/L (46-116) AST (SGOT) 20 U/L (15-37) ALT (SGPT) 9 L U/L (12-78) LIPASE 173 U/L (73-393) AMYLASE 50 U/L (25-115) CPK 43 U/L (24-260) TROPONIN I <0.05 L ng/mL (0.00-1.5) TROPONIN REFERENCE RANGE:<0.1 NEGATIVE0.1-1.5 INDETERMINANT>1.5 POSITIVE . PROGRESS AND PROCEDURES Course of Care: Patient is stable. Patient/family counseled. Old medical records ordered. CLINICAL IMPRESSION Syncope. Mild volume depletion with hypotension. INSTRUCTIONS Warnings: Further evaluation is necessary. GENERAL WARNINGS: Return or contact your physician immediately if your condition worsens or changes unexpectedly, if not improving as expected, or if other problems arise. Your Current Medications: CONTINUE TAKING THE FOLLOWING MEDICATIONS: Aspirin Oral : Tablet Chewable 81 mg, 1 tablet daily. Carbidopa-Levodopa Oral : Tablet 25-100 mg, 1 tablet 4x a day. Furosemide Oral : 40 mg 2x a day. Ipratropium-Albuterol Inhalation : Solution 0.5-2.5 (3) mg/3mL, 1 teaspoon q 4-6 hrs prn. Lisinopril Oral : 10 mg daily. Lovastatin Oral : Tablet 40 mg, 1 tablet at bedtime. Metoprolol Succinate ER Oral : Tablet Extended Release 24 Hour 50 mg, 1/2 tablet daily. Understanding of the discharge instructions verbalized by patient and family. (Electronically signed by Dez Barbosa MD 08/21/2016 21:09)
--- NOTE | 2016-08-21 19:12 | ED ORDER SUMMARY ---
..... Patient: BINTA GÓMEZ SR OrderSheet [facility] VisitID: [id number] [place] [address] 86y, M Registration Date/Time: 08/21/2016 ORDER SHEET Weight: 84.3 kg (stated) Allergies: Erythromycin GENERAL ORDERS: EKG - ER Stat (15:53 08/21/2016 AMMONimbeck R.N. per protocol) (16:02 PWeiler ER Tech1) Chest 1V Urgent (15:59 08/21/2016 Eliezer KIM) (Ack 16:03 STACYoerner) (16:45 JSimbeck R.N.) Mellowing Machine Operator (Continuous) (16:00 08/21/2016 Eliezer KIM) (16:02 JSimbeck R.N.) (16:03 KHoerner) CT Head wo Cont Urgent (16:00 08/21/2016 Eliezer KIM) (Ack 16:03 Jessica) (16:18 KHoerner) CBC w Diff Urgent (16:00 08/21/2016 Eliezer KIM) (Ack 16:03 STACYoedai) (16:44 JSimbeck R.N.) CMP Urgent (16:00 08/21/2016 Eliezer KIM) (Ack 16:03 STACYoeosmarner) (16:44 JSimbeck R.N.) UA-Culture if indicated Urgent (16:00 08/21/2016 Eliezer KIM) (Ack 16:03 Jessica) (17:07 JSimbeck R.N.) Amylase Urgent (16:00 08/21/2016 Eliezer KIM) (Ack 16:03 Jessica) (16:44 JSimbeck R.N.) Lipase Urgent (16:00 08/21/2016 Eliezer KIM) (Ack 16:03 STACYoeosmarner) (16:44 JSimbeck R.N.) CPK Urgent (16:00 08/21/2016 Eliezer KIM) (Ack 16:03 STACYoedai) (16:44 JSimbeck R.N.) Troponin-I Urgent (16:00 08/21/2016 Eliezer KIM) (Ack 16:03 STACYoedai) (16:45 Chris R.N.) Oxygen (2 L/min) (NC) (16:00 08/21/2016 Eliezer KIM) (16:02 Chris R.N.) Pulse oximeter (16:00 08/21/2016 Eliezer KIM) (16:02 Chris R.N.) (16:03 STACYoedai) Vitals - Orthostatic (16:00 08/21/2016 Eliezer KIM) (17:40 Logan R.N.) MEDICATION ORDERS: IV FLUIDS: IV Saline Lock (16:00 08/21/2016 Eliezer KIM) (16:45 Chris R.N.) IV NS : initial bolus 1000 mL (1000 mL/hr), then none - for X1 (NOW); Urgent (17:51 08/21/2016 Eliezer KIM) (17:57 Chris R.N.) ORDER SHEET NOTES: [Electronically signed by Sonal Santizo R.N. (19:32 08/21/2016)] [Electronically signed by Dez Barbosa MD (21:09 08/21/2016)] [Electronically locked/signed by Sonal Santizo R.N. (19:32 08/21/2016)]
--- NOTE | 2016-08-21 19:12 | ED NURSING NOTES ---
Clinical Report - Nurses [facility] [address] [place] [address] 08/21/2016 15:47 [id number] Triage time 15:50. Acuity: LEVEL 3. Chief Complaint: (Syncope. Pt was sitting in a recliner, no injury. Pt denies any c/o now.). SEPSIS SCREEN: Sepsis Screen. Negative (no infection suspected/documented). TRAM COMA SCORE: [place] Coma Scale: 14- eyes open spontaneously (4); best verbal response- disoriented (4); best motor response- obeys commands (6). --16:02 Gary Conde R.N. 15:53 08/21/16. BP: 176/76 (regular adult cuff) taken on the left arm, while lying. HR: 71. RR: 20. O2 saturation: 94% on room air. Temp: 97.5 F (oral). Pain level now: 0/10. --16:02 Gary Conde R.N. Weight: 84.3 kg stated. Height/Length: 71 inches Per Patient. BMI: 25.9. --15:53 Gary Conde R.N. Medications Aspirin Oral (Tablet Chewable 81 mg) 1 tablet, daily. Carbidopa-Levodopa Oral (Tablet 25-100 mg) 1 tablet, 4x a day. Furosemide Oral 40 mg, 2x a day. Ipratropium-Albuterol Inhalation (Solution 0.5-2.5 (3) mg/3mL) 1 teaspoon, q 4-6 hrs prn. Lisinopril Oral 10 mg, daily. Lovastatin Oral (Tablet 40 mg) 1 tablet, at bedtime. Metoprolol Succinate ER Oral (Tablet Extended Release 24 Hour 50 mg) 1/2 tablet, daily. Rivastigmine Tartrate Oral (Capsule 1.5 mg) 1 capsule, 2 x daily. Vitamin D3 2000 Units, daily. --15:51 Gary Conde R.N. Allergies Erythromycin. --15:51 Gary Conde R.N. History Arrived by EMS. Historian: EMS and patient. This started just prior to arrival. 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 SOCIAL HX: Former smoker, end date 1996 (cigarette). No alcohol use or drug use. ABUSE ASSESSMENT: No report of abuse. --16:02 Gary Conde R.N. PROBLEMS: Syncope. Near Syncope. Congestive Heart Failure. Nephrolithiasis. Hyperlipidemia. Hydronephrosis. Abdominal aortic aneurysm. Edema. Chest Wall Pain. Dementia. Depression. Pneumonia. Subconjunctival Hemorrhage. Parkinson's Disease. Hypertension. Ureterolithiasis. Immunizations. --15:51 Gary Conde R.N. ADDITIONAL SURGERIES: Back Surgery. 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 --15:51 Gary Conde R.N. Assessment GENERAL / NEURO / PSYCH: Alert. Appears in no acute distress. The patient is disoriented to person, place and situation. Patient appears calm and cooperative. RESPIRATORY: Respirations not labored. Chest nontender. Breath sounds within normal limits. CVS: Normal sinus rhythm noted. Capillary refill less than 2 seconds. GI / : Abdomen soft and nontender. SKIN: Mucous membranes are pink. Skin is warm. Skin is slightly diaphoretic. --16:02 Gary Conde R.N. Interventions ID band on patient. To treatment room. --16:02 Gary Conde R.N. PHYSICAL ASSESSMENT To room via stretcher. GENERAL / NEURO / PSYCH: Alert. Appears in no acute distress. The patient is disoriented to person, place and situation. HEENT: No facial asymmetry noted. Mucous membranes are pink. RESPIRATORY: Respirations not labored. Chest nontender. Breath sounds within normal limits. CVS: Normal sinus rhythm noted. Capillary refill less than 2 seconds. Pulses within normal limits. GI / : Abdomen soft and nontender and normal bowel sounds. SKIN: Skin is warm and dry. Poor skin turgor. --16:30 Gary Conde R.N. NURSING PROGRESS NOTES 16:40 08/21/2016 Site #1 started via IV in the right forearm with an 20g angiocath, with aseptic technique and good blood return; one attempt. Blood drawn: rainbow set. Labeled in the presence of the patient and sent to the lab. Saline lock flushed with 10 mL saline. --16:45 Gary Conde R.N. 17:45 08/21/16. BP: 171/66 (regular adult cuff) taken on the left arm, while lying. HR: 70. --17:52 Gary Conde R.N. 17:47 08/21/16. BP: 128/66 taken while sitting. HR: 72. --17:52 Gary Conde R.N. 17:49 08/21/16. BP: 113/74 taken while standing. HR: 74. --17:53 Gary Conde R.N. 17:55 08/21/2016 Started bag #1 1000 mL IV Fluids IV NS (Saline); bolus of 1000 mL over 30 minute(s) via site #1. Allergies verified and confirmed 5 rights. IV patency established. IV site checked: no pain, redness, or swelling. IV flushed thoroughly pre- and post-medication administration. --17:57 Gary Conde R.N. 18:40 08/21/2016 IV Fluids IV NS Discontinued: bag #1 completed. Total amount infused: 1000 mL. IV patency established. IV site checked: no pain, redness, or swelling. IV flushed thoroughly. --18:45 Gary Conde R.N. 18:30 08/21/16. BP: 171/77. HR: 75. RR: 20. O2 saturation: 95% on room air. Pain level now: 0/10. --18:46 Gary Conde R.N. Care transferred and report received. --19:07 Sonal Santizo R.N. Care transferred and report given (Sonal, RN). --19:14 Gary Conde R.N. DISPOSITION / DISCHARGE ( pt states he feels better and would like to go home.). --19:12 Sonal Santizo R.N. 19:11 08/21/16. BP: 165/74. HR: 76. RR: 25. O2 saturation: 95% on room air. Pain level now: 0/10. --19:12 Sonal Santizo R.N. Condition at departure: improved and stable. No learning barriers present. Discharge instructions provided and reviewed with the patient and family. Patient and family verbalized understanding. Written instructions provided in [place]. The patient was discharged home and accompanied by family. He left the Emergency Department in a wheelchair, via private vehicle and (assisted by 1 RN to transfer into private vehicel). Family member driving. --19:31 Sonal Santizo R.N. 19:20 08/21/2016 Site #1 removed upon discharge. Catheter intact. Manual pressure and bandage applied. --19:31 Sonal Santizo R.N. Locked/Released at 08/21/2016 19:32 by Sonal Santizo R.N.
--- NOTE | 2016-08-21 21:09 | ED MED RECONCILIATION SUMMARY ---
Patient: BINTA GÓMEZ SR Medication Reconciliation Report [facility] VisitID: [id number] [address] [place] [address] 86y, M Registration Date/Time: 08/21/2016 Weight: 84.3 kg Height/Length: 71 in. BMI: 25.9 ALLERGIES: Erythromycin The patient's Home Medications are listed below: CONTINUE TAKING THE FOLLOWING MEDICATIONS: Aspirin Oral (81 mg) 1 tablet, daily Carbidopa-Levodopa Oral (25-100 mg) 1 tablet, 4x a day Furosemide Oral 40 mg, 2x a day Ipratropium-Albuterol Inhalation (0.5-2.5 (3) mg/3mL) 1 teaspoon, q 4-6 hrs prn Lisinopril Oral 10 mg, daily Lovastatin Oral (40 mg) 1 tablet, at bedtime Metoprolol Succinate ER Oral (50 mg) 1/2 tablet, daily THE FOLLOWING MEDICATIONS NEED TO BE RECONCILED: Rivastigmine Tartrate Oral (1.5 mg) 1 capsule, 2 x daily Vitamin D3 2000 Units, daily The source(s) of the original Home Medication information: Not obtained. The following Medications were given to the patient in the Emergency Department: IV NS IV Fluids bolus 1000 mL over 30 minute(s), administered: 08/21/2016 5:55:00 PM The following Medications were prescribed to the patient: None.
--- NOTE | 2016-08-21 21:09 | ED MAR SUMMARY ---
..... Medication Administration Record [facility] [address] [place] [address] Patient: BINTA GÓMEZ Visit ID: [id number] 86y, M Weight: 84.3 kg Height/Length: 71 in BMI: 25.9 ALLERGIES: Erythromycin Start 17:55 08/21/2016 Gary Conde R.N., Stop 18:40 08/21/2016 Gary Conde R.N. Medication Administered: IV NS (SALINE), Dose: IV Fluids, Bolus: 1000 mL over 30 minute(s), Dispensed: 1000 mL bag, Site: #1 right forearm. Medication Ordered: IV NS : initial bolus 1000 mL (1000 mL/hr), then none - for X1 (NOW); Urgent.
--- NOTE | 2016-08-21 21:09 | ED MED RECONCILIATION SUMMARY ---
Patient: BINTA GÓMEZ SR Medication Reconciliation Report [facility] VisitID: [id number] [address] [place] [address] 86y, M Registration Date/Time: 08/21/2016 Weight: 84.3 kg Height/Length: 71 in. BMI: 25.9 ALLERGIES: Erythromycin The patient's Home Medications are listed below: CONTINUE TAKING THE FOLLOWING MEDICATIONS: Aspirin Oral (81 mg) 1 tablet, daily Carbidopa-Levodopa Oral (25-100 mg) 1 tablet, 4x a day Furosemide Oral 40 mg, 2x a day Ipratropium-Albuterol Inhalation (0.5-2.5 (3) mg/3mL) 1 teaspoon, q 4-6 hrs prn Lisinopril Oral 10 mg, daily Lovastatin Oral (40 mg) 1 tablet, at bedtime Metoprolol Succinate ER Oral (50 mg) 1/2 tablet, daily THE FOLLOWING MEDICATIONS NEED TO BE RECONCILED: Rivastigmine Tartrate Oral (1.5 mg) 1 capsule, 2 x daily Vitamin D3 2000 Units, daily The source(s) of the original Home Medication information: Not obtained. The following Medications were given to the patient in the Emergency Department: IV NS IV Fluids bolus 1000 mL over 30 minute(s), administered: 08/21/2016 5:55:00 PM The following Medications were prescribed to the patient: None.
--- NOTE | 2016-08-21 21:09 | ED DISCHARGE INSTRUCTIONS ---
Patient: BINTA GÓMEZ General Instructions [facility] VisitID: [id number] [place] [address] 86y, M Registration Date/Time: 08/21/2016 Syncope. Mild volume depletion with hypotension. INSTRUCTIONS Warnings: Further evaluation is necessary. GENERAL WARNINGS: Return or contact your physician immediately if your condition worsens or changes unexpectedly, if not improving as expected, or if other problems arise. Your Current Medications: CONTINUE TAKING THE FOLLOWING MEDICATIONS: Aspirin Oral : Tablet Chewable 81 mg, 1 tablet daily. Carbidopa-Levodopa Oral : Tablet 25-100 mg, 1 tablet 4x a day. Furosemide Oral : 40 mg 2x a day. Ipratropium-Albuterol Inhalation : Solution 0.5-2.5 (3) mg/3mL, 1 teaspoon q 4-6 hrs prn. Lisinopril Oral : 10 mg daily. Lovastatin Oral : Tablet 40 mg, 1 tablet at bedtime. Metoprolol Succinate ER Oral : Tablet Extended Release 24 Hour 50 mg, 1/2 tablet daily. Understanding of the discharge instructions verbalized by patient and family. ADDITIONAL INFORMATION Fainting:Uncertain Cause Fainting (syncope) is a temporary loss of consciousness ("passing out"). It occurs when blood flow to the brain is reduced. Near-fainting ("near-syncope") is very similar to fainting, but you do not fully "pass out". The common minor causes of fainting include: sudden fear, pain, nausea, emotional stress and overexertion. Suddenly standing up after sitting or lying for a long time can also cause fainting. The more serious causes for fainting are due to either a very slow or very fast or very slow heart beat ("arrhythmia"), other types of heart disease, dehydration, blood loss, seizure, stroke or ruptured blood vessel in the brain. Taking too much high blood pressure medicine can also cause low blood pressure and fainting. The exact cause of your episode is not certain. However, the tests today did not show any of the serious causes of fainting. Sometimes further testing is needed to find out if a serious problem exists. Therefore, it is important that you follow-up with your doctor as advised. Home Care: 1) Rest today. You may resume your normal activities when you are feeling back to normal. It is best to remain with someone who can check on you for the next 24 hours to watch for another episode of fainting. 2) If you become light-headed or dizzy, lie down immediately or sit with your head between your knees. 3) Because we do not know the exact cause of your near fainting spell, it is possible for another spell to occur without warning. Therefore, do not drive a car or operate dangerous equipment, do not take a bath alone (use a shower instead) and do not swim alone until your doctor says that you are no longer in danger of having another fainting spell. Follow Up with your doctor as advised. Get Prompt Medical Attention if any of the following occur: -- Another fainting spell occurs, which is not explained by the common causes listed above -- Chest, arm, neck, jaw, back or abdominal pain -- Shortness of breath -- Severe headache or seizure -- Blood in vomit, stools (black or red color) -- Unexpected vaginal bleeding -- Palpitations (very rapid or very slow or irregular heart beat) -- Signs of stroke: Weakness of an arm or leg or one side of the face Difficulty with speech or vision Extreme drowsiness, confusion, dizziness or fainting Dehydration (Adult) Dehydration occurs when your body loses too much fluid. This may be the result of vomiting a lot or from diarrhea,sweating a lot, or a high fever. It may also happen if you dont drink enough fluid when youre sick. Misuse of diuretics (water pills) can also be a cause. Symptoms include thirst and feeling dizzy, weak, fatigued, or very drowsy. The diet described below is usually enough to treat most cases. Sometimes you may needmedicine. Home Care Follow these guidelines for home care: Drink at least 12 8-ounce glasses of fluid every day to overcome the dehydration. Fluid may include water; orange juice; lemonade; apple, grape, and cranberry juice; clear fruit drinks; electrolyte replacement and sports drinks; and teas and coffee without caffeine. If you have been diagnosed with a kidney disease, ask your doctor how much and what types of fluids you should drink to prevent dehydration. If you have kidney disease, drinking too much fluid can cause it build up in the your body and be dangerous to your health. If you have fever, muscle aching, or headache from a viral syndrome, you may useacetaminophen or ibuprofen, unless another medicine was prescribed for this.If you have chronic liver or kidney disease or ever had a stomach ulcer or GI bleeding, talk with your doctor before using these medicines. Don't take aspirin if you are younger than 18 and are ill with a fever.Aspirin raises the chance forsevere liver injury. Follow-up care Follow up with your health care provider if you don't get better in the next 24 to 48 hours. When to seek medical care Get prompt medical attention if any of theseoccur: Continued vomiting (cant keep liquids down) Frequent diarrhea (more than 5 times a day); blood (red or black color) or mucus in diarrhea Blood in vomit or stool Swollen abdomen or increasing abdominal pain Weakness, dizziness, or fainting Unusually drowsy or confused Reduced urine output or extreme thirst Fever of 100.4 F (38 C) oral or higher that does not get better with fever medication You have been given the following additional information: Syncope, Unk Cause Dehydration (Adult) (Electronically signed by Dez Barbosa MD 08/21/2016 21:09)
--- NOTE | 2016-08-21 21:09 | ED MAR SUMMARY ---
..... Medication Administration Record [facility] [address] [place] [address] Patient: BINTA GÓMEZ Visit ID: [id number] 86y, M Weight: 84.3 kg Height/Length: 71 in BMI: 25.9 ALLERGIES: Erythromycin Start 17:55 08/21/2016 Gary Conde R.N., Stop 18:40 08/21/2016 Gary Conde R.N. Medication Administered: IV NS (SALINE), Dose: IV Fluids, Bolus: 1000 mL over 30 minute(s), Dispensed: 1000 mL bag, Site: #1 right forearm. Medication Ordered: IV NS : initial bolus 1000 mL (1000 mL/hr), then none - for X1 (NOW); Urgent.
== END 2016-08-21 19:25 | disposition home or self-care (01) ==
LOC: ED SRH 15:47
DX: R55 Syncope and collapse (principal); E86.9 Volume depletion, unspecified; I95.9 Hypotension, unspecified; I10 Essential (primary) hypertension; I48.91 Unspecified atrial fibrillation; E78.5 Hyperlipidemia, unspecified; I50.9 Heart failure, unspecified; G20 Parkinson's disease; Z79.899 Other long term (current) drug therapy; Z79.82 Long term (current) use of aspirin
CPT/HCPCS: 90004; 90100; 90616; 92235; 92530; 92610; 95059

== ENCOUNTER 2016-08-22 16:18 | Emergency (ER) | payer OTHER ==
--- NOTE | 2016-08-22 18:31 | DIAGNOSTIC IMAGING REPORT ---
PROCEDURE: XR CHEST 1 VIEW INDICATION: Syncope. TECHNIQUE: Portable AP view - - two images (1720 hours). COMPARISON: Para chest x-ray on 08/21/2016, 07/09/2016, and CTA thorax (05/17/2016). FINDINGS: Minor parenchymal scarring at the lung bases. Lungs are otherwise clear. Mild cardiomegaly. Moderate hiatal hernia. Thorax is unchanged. IMPRESSION: 1. Mild cardiomegaly. 2. Moderate hiatal hernia. 3. Otherwise negative chest.
--- NOTE | 2016-08-22 19:40 | ED CLINICAL REPORT ---
Clinical Report - Physicians/Mid Levels [place] [address] [place] [address] 08/22/2016 16:18 Patient: BINTA GÓMEZ SR Time Seen: 16:43. Arrived- By private vehicle. Historian- patient and family. HISTORY OF PRESENT ILLNESS The patient has recovered. Chief Complaint: NEAR-SYNCOPE. This occurred today. Event was witnessed. (his family reports that for approximately 30-40 minutes he had a decreased level of consciousness. He would respond if they spoke to him however.). Witnessed by family member. The patient had preceding symptoms of light-headedness. No loss of consciousness or apnea noted. Brief seizure activity observed involving the right lower extremity and left lower extremity (his family reports that he had some brief episodes of mild shaking). At time of event, he was sitting. No injuries noted. Currently he feels normal. Recent medical care: The patient was seen recently at this facility. Seen for similar symptoms. REVIEW OF SYSTEMS No chills, fever, sweats, calf pain or chest pain. No cough, difficulty breathing, pedal edema, palpitations or abdominal pain. No constipation, diarrhea, nausea, vomiting or urinary problems. All systems otherwise negative, except as recorded above. PAST HISTORY Problems: Hypovolemia. Atrial Fibrillation. Syncope. Near Syncope. Congestive Heart Failure. Nephrolithiasis. Hyperlipidemia. Hydronephrosis. Abdominal aortic aneurysm. Edema. Chest Wall Pain. Dementia. Depression. Pneumonia. Subconjunctival Hemorrhage. Parkinson's Disease. Hypertension. Ureterolithiasis. Additional Surgeries: Back Surgery. 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 Medications: Lovastatin Oral (Tablet 40 mg) 1 tablet, at bedtime. Metoprolol Succinate ER Oral (Tablet Extended Release 24 Hour 50 mg) 1/2 tablet, daily. Rivastigmine Tartrate Oral (Capsule 1.5 mg) 1 capsule, 2 x daily. Vitamin D3 2000 Units, daily. Aspirin Oral (Tablet Chewable 81 mg) 1 tablet, daily. Carbidopa-Levodopa Oral (Tablet 25-100 mg) 1 tablet, 4x a day. Furosemide Oral 40 mg, 2x a day. Ipratropium-Albuterol Inhalation (Solution 0.5-2.5 (3) mg/3mL) 1 teaspoon, q 4-6 hrs prn. Lisinopril Oral 10 mg, daily. Allergies: Erythromycin. SOCIAL HISTORY Former smoker, end date 1976. No alcohol use or drug use. ADDITIONAL NOTES The nursing notes have been reviewed. PHYSICAL EXAM Vital Signs: 08/22/2016 16:25 BP: 85/63. HR: 64. RR: 20. O2 saturation: 96%. Temp: 98.4 F. Have been reviewed. Appearance: Alert. Eyes: Pupils equal, round and reactive to light. No nystagmus. ENT: Moist mucous membranes. Pharynx normal. Neck: Normal inspection. Neck supple. No meningeal signs or carotid bruit. CVS: Normal heart rate and rhythm. Heart sounds normal. Respiratory: No respiratory distress. Breath sounds normal. Abdomen: Soft and nontender. No organomegaly. Back: Normal inspection. Skin: Skin warm and dry. Normal skin color. Normal skin turgor. Extremities: Extremities exhibit normal ROM. No calf tenderness. No lower extremity edema. Neuro: Alert. The patient is disoriented. Speech normal. (Tremulous with mild cogwheel rigidity). LABS, X-RAYS, AND EKG EKG: Rate: 64. LVH. Left axis deviation. EKG unchanged when compared with prior EKG. (09 July 2016). The study has been independently viewed by me. Chest X-ray: (IMPRESSION: 1. Mild cardiomegaly. 2. Moderate hiatal hernia. 3. Otherwise negative chest.). The X-rays were interpreted by the radiologist and contemporaneously by me. Laboratory Tests: UA-Culture if indicated: (SARAH: 08/22/2016 17:20) ( MsgRcvd 08/22/2016 17:49) Final results Test Result Flag Units (Reference) URINE COLOR YELLOW URINE APPEARANCE CLEAR URINE GLUCOSE NEGATIVE (NEGATIVE) URINE BILIRUBIN NEGATIVE (NEGATIVE) URINE KETONE NEGATIVE (NEGATIVE) URINE SPECIFIC GRAVITY <= 1.005 L (1.010-1.030) URINE PH 6.5 (5.0-8.0) URINE PROTEIN NEGATIVE (NEGATIVE) URINE UROBILINOGEN 0.2 EU/dL (0.2-1.0) URINE NITRITE NEGATIVE (NEGATIVE) URINE BLOOD NEGATIVE (NEGATIVE) URINE LEUK ESTERASE NEGATIVE (NEGATIVE) URINE RBC NONE SEEN rbc/hpf (0-1) URINE WBC RARE wbc/hpf (0-1) URINE EPITHELIAL CELLS 0-1 EPI/hpf (0-5) URINE BACTERIA NONE SEEN (NONE SEEN) URINE COMMENT CULT NOT INDICATED URINE CULTURES ARE SET-UP BASED ON THE FOLLOWING CRITERIA:POSITIVE NITRITEPOSITIVE LEUKOCYTE ESTERASEGREATER THAN 10 WHITE BLOOD CELLSMODERATE (2+) OR GREATER BACTERIA CBC w Diff: (SARAH: 08/22/2016 17:00) ( Mscvd 08/22/2016 17:33) Final results Test Result Flag Units (Reference) WHITE BLOOD COUNT 7.4 K/uL (4.5-11.5) RED BLOOD COUNT 4.19 L M/uL (4.50-5.90) HEMOGLOBIN 13.0 L gm/dL (13.5-17.5) HEMATOCRIT 39.1 L % (41.0-53.0) MEAN CELL VOLUME 94 fL (80-100) MEAN CORPUSCULAR HGB 31 pg (26-34) MEAN CORPUSCULAR HGB CONC 33 g/dL (31-37) RED CELL DISTRIBUTION WIDTH 14.9 H % (11.6-14.8) PLATELET COUNT 168 K/uL (150-400) NEUTROPHIL % 55.8 % (50-75) LYMPH % 27.2 % (25-40) MONO % 13.1 % (3-14) EOSINOPHIL % 3.4 % (0-4) BASOPHIL % 0.5 % (0-2) CMP: (SARAH: 08/22/2016 17:00) ( MsgRcvd 08/22/2016 17:42) Final results Test Result Flag Units (Reference) GLUCOSE 116 H mg/dL (70-110) BUN 33 H mg/dL (7-18) CREATININE 1.3 mg/dL (0.6-1.3) Estimated GFR 55.50 mL/min Estimated GFR- >60 mL/min Note: Persistent reduction over 3 months in eGFR<60 mL/min/1.73 m2 defines CKD. Patients with eGFR values>=60 mL/min/1.73 m2 may also have CKD if evidence ofpersistent proteinuria. Additional information may be foundat www.kidney.org. SODIUM 144 mmol/L (136-145) POTASSIUM 4.0 mmol/L (3.5-5.1) CHLORIDE 106 mmol/L (98-107) CARBON DIOXIDE 33 H mmol/L (21-32) CALCIUM 7.9 L mg/dL (8.5-10.1) TOTAL PROTEIN 6.0 L g/dL (6.4-8.2) ALBUMIN 3.2 L g/dL (3.3-5.0) BILIRUBIN, TOTAL 0.6 mg/dL (0.0-1.0) ALKALINE PHOSPHATASE 73 U/L (46-116) AST (SGOT) 19 U/L (15-37) ALT (SGPT) 11 L U/L (12-78) LIPASE 176 U/L (73-393) AMYLASE 45 U/L (25-115) CPK 39 U/L (24-260) TROPONIN I <0.05 ng/mL (0.00-1.5) TROPONIN REFERENCE RANGE:<0.1 NEGATIVE0.1-1.5 INDETERMINANT>1.5 POSITIVE . PROGRESS AND PROCEDURES Course of Care: Patient is stable. Discussed case with on-call health care provider, (Crow). Reviewed test results and need for additional work-up. Agreed upon treatment plan. Health care provider will see patient in office. Patient/family counseled. Old medical records reviewed. Disposition: Discharged. Condition: stable. CLINICAL IMPRESSION Near syncope Postural hypotension. Possible seizure. INSTRUCTIONS Drink plenty of fluids. Warnings: Further evaluation is necessary. CONTROLLED SUBSTANCE WARNINGS. GENERAL WARNINGS: Return or contact your physician immediately if your condition worsens or changes unexpectedly, if not improving as expected, or if other problems arise. Your Current Medications: STOP TAKING THE FOLLOWING MEDICATIONS: Rivastigmine Tartrate Oral : Capsule 1.5 mg, 1 capsule 2 x daily. CHANGE THE FOLLOWING MEDICATIONS TO: Furosemide Oral : 20 mg daily, in the morniing and 10 mg (one half tablet) in the evening. Lisinopril Oral : 5 mg daily. CONTINUE TAKING THE FOLLOWING MEDICATIONS: Aspirin Oral : Tablet Chewable 81 mg, 1 tablet daily. Carbidopa-Levodopa Oral : Tablet 25-100 mg, 1 tablet 4x a day. Ipratropium-Albuterol Inhalation : Solution 0.5-2.5 (3) mg/3mL, 1 teaspoon q 4-6 hrs prn. Lovastatin Oral : Tablet 40 mg, 1 tablet at bedtime. Metoprolol Succinate ER Oral : Tablet Extended Release 24 Hour 50 mg, 1/2 tablet daily. Vitamin D3* : 2000 Units daily. Understanding of the discharge instructions verbalized by patient and family. Follow-up with: Xander Maria MD, Family [facility], , [facility], [address] [place] [address] Follow up in four days. Call for the next available appointment. (Electronically signed by Dez Barbosa MD 08/25/2016 10:12)
--- NOTE | 2016-08-22 19:40 | ED NURSING NOTES ---
Clinical Report - Nurses [facility] [address] [place] [address] 08/22/2016 16:18 [id number] Triage time 16:Aug 22 2016. Acuity: LEVEL 2. Chief Complaint: ALTERED MENTAL STATUS and DECREASED RESPONSIVENESS. JAMI COMA SCORE: Jami Coma Scale: 15- eyes open spontaneously (4); best verbal response- oriented x 4 (5); best motor response- obeys commands (6). --16:33 Zayda Vaughn R.N. 16:25 08/22/16. BP: 85/63. HR: 64. RR: 20. O2 saturation: 96%. Temp: 98.4 F. Pain level now 0/10. --16:33 Zayda Vaughn R.N. Weight: 84.3 kg stated. Height/Length: 71 inches Per Patient. BMI: 25.9. --16:32 Zayda Vaughn R.N. Medications Aspirin Oral (Tablet Chewable 81 mg) 1 tablet, daily. Carbidopa-Levodopa Oral (Tablet 25-100 mg) 1 tablet, 4x a day. Furosemide Oral 40 mg, 2x a day. Ipratropium-Albuterol Inhalation (Solution 0.5-2.5 (3) mg/3mL) 1 teaspoon, q 4-6 hrs prn. Lisinopril Oral 10 mg, daily. --16:29 Zayda Vaughn R.N. Lovastatin Oral (Tablet 40 mg) 1 tablet, at bedtime. Metoprolol Succinate ER Oral (Tablet Extended Release 24 Hour 50 mg) 1/2 tablet, daily. Rivastigmine Tartrate Oral (Capsule 1.5 mg) 1 capsule, 2 x daily. Vitamin D3 2000 Units, daily. --16:29 Zayda Vaughn R.N. Allergies Erythromycin. --16:29 Zayda Vaughn R.N. History Arrived by EMS. Historian: patient. This started just prior to arrival. ( Patient doesn't remember today last he remembers is going home from the hospital in the evening. called 911 because patient was sitting at the table and unresponsive ambulance stated he aroused with painful stimuli.). No fever, headache, weakness, numbness or trouble walking. No incontinence. PAST MEDICAL HX: Immunizations: up-to-date. SOCIAL HX: Former smoker, end date 1976. No alcohol use or drug use. SELF HARM ASSESSMENT: A self harm assessment was performed. The patient answered "no" to the question "Have you recently felt down, depressed, or hopeless?" and "Do you have thoughts of harming or killing yourself?". NUTRITIONAL RISK ASSESSMENT: The nutritional risk assessment revealed no deficiencies. FUNCTIONAL ASSESSMENT: Functional assessment: no impairments noted. LEARNING NEEDS ASSESSMENT: The learning needs assessment revealed no barriers. ABUSE ASSESSMENT: Abuse assessment: (yes) The patient was asked "Do you feel safe in your home?". FALL RISK ASSESSMENT: Fall risk assessment completed. Risk factors identified include patient impairment of cognition. Fall interventions initiated. Side rails up x2. Brakes on Bed in low position. Patient identified as a fall risk by ID band. Family at bedside. Call light in reach of patient. Instructed not to get up without assistance. SKIN INTEGRITY ASSESSMENT: Skin integrity risk assessment completed. No skin integrity risk identified. --16:33 Zayda Vaughn R.N. PROBLEMS: Hypovolemia. Atrial Fibrillation. Syncope. Congestive Heart Failure. Nephrolithiasis. Hyperlipidemia. Hydronephrosis. Abdominal aortic aneurysm. Edema. Chest Wall Pain. Dementia. Depression. Pneumonia. Subconjunctival Hemorrhage. Parkinson's Disease. Hypertension. Ureterolithiasis. Immunizations. --16:29 Zayda Vaughn R.N. Near Syncope [RuleOut]. --19:36 Dez Barbosa MD The following entry was modified by Dez Barbosa MD, 19:36 <<STRICKEN ENTRY-- Near Syncope. --21:11 Zayda Vaughn R.N. --END STRIKE>>. ADDITIONAL SURGERIES: Back Surgery. 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 --16:29 Zayda Vaughn R.N. Interventions ID band on patient. --16:33 Zayda Vaughn R.N. PHYSICAL ASSESSMENT To room via stretcher. ( States doesn't remember today. Thinks it's 19 something for the and November. Patient states knows the president.). GENERAL / NEURO / PSYCH: The patient is disoriented to time. Speech within normal limits. Patient appears well-nourished and neat and clean. HEENT: Pupils equal, round and reactive to light. RESPIRATORY: Respirations not labored. Breath sounds within normal limits. CVS: Normal sinus rhythm noted. Capillary refill less than 2 seconds. GI / : ( Last BM yesterday). SKIN: Skin is warm and dry. Normal skin turgor. --16:35 Zayda Vaughn R.N. NURSING PROGRESS NOTES The initial plan of care for this patient includes an assessment with efforts to address patient positioning, appropriate ambient lighting and comfortable environmental temperature; impairment of the neurological system. monitor worker, pulse oximeter and NIBP monitor placed on patient. Head of bed elevated 75 degrees. Reassurance given. Call light placed in reach. Side rails up x 2. Bed placed in lowest position. Brakes of bed on. --16:36 Zayda Vaughn R.N. 17:21 08/22/16. BP: 156/79. HR: 65. RR: 18. O2 saturation: 98%. 17:05 08/22/16. BP: 89/58 taken while standing. HR: 72. RR: 21. O2 saturation: 97%. 17:03 08/22/16. BP: 144/57 taken while sitting. HR: 69. RR: 16. O2 saturation: 98%. 17:00 08/22/16. BP: 157/69 taken while lying. HR: 66. RR: 18. O2 saturation: 99%. --17:22 Zayda Vaughn R.N. 18:00 08/22/16. BP: 146/63. HR: 67. RR: 20. O2 saturation: 99%. 17:45 08/22/16. BP: 137/56. HR: 65. RR: 22. O2 saturation: 94%. 17:21 08/22/16. BP: 156/79. HR: 65. RR: 18. O2 saturation: 98%. --18:11 Zayda Vaughn R.N. Care transferred and report received (Received report from Zayda BOYD, Assumed care of pt). --19:18 Josee Viera R.N. DISPOSITION / DISCHARGE Departure time: 1952. Condition at departure: improved and stable. No learning barriers present. Discharge instructions provided and reviewed with the family. Reviewed referral to family practice. Follow up contact number [phone]. Family verbalized understanding. Written instructions provided in Swedish. No medication instructions. The patient was discharged home and accompanied by family. He left the Emergency Department in a wheelchair and via private vehicle. Family member driving. --19:59 Josee Viera R.N. 19:45 08/22/16. BP: 167/80 taken on the left arm, while lying. HR: 70 (regular and normal rate). RR: 16 (regular and unlabored). O2 saturation: 93% on room air. Temp: deferred. Pain level now: 0/10. --19:59 Josee Viera R.N. Locked/Released at 08/22/2016 20:00 by Josee Viera R.N.
--- NOTE | 2016-08-22 19:40 | ED ORDER SUMMARY ---
..... Patient: BINTA GÓMEZ SR OrderSheet [facility] VisitID: [id number] [address] [place] [address] 86y, M Registration Date/Time: 08/22/2016 ORDER SHEET Weight: 84.3 kg (stated) Allergies: Erythromycin GENERAL ORDERS: Vitals - Orthostatic (16:44 08/22/2016 Eliezer KIM) (17:18 LWhalen R.N.) Chest 1V Urgent (17:13 08/22/2016 Eliezer KIM) (17:18 LWhalen R.N.) Machine Shop Apprentice (Continuous) (17:13 08/22/2016 Eliezer KIM) (17:18 LWhalfeliciano R.N.) CBC w Diff Urgent (17:13 08/22/2016 Eliezer KIM) (17:18 LWshay R.N.) CMP Urgent (17:13 08/22/2016 Eliezer KIM) (17:18 LWhalen R.N.) UA-Culture if indicated Urgent (17:13 08/22/2016 Eliezer KIM) (17:18 LWshay R.N.) Amylase Urgent (17:13 08/22/2016 Eliezer KIM) (17:18 LWhalen R.N.) Lipase Urgent (17:13 08/22/2016 Eliezer KIM) (17:18 LWhalen R.N.) CPK Urgent (17:13 08/22/2016 Eliezer KIM) (17:18 LWshay R.N.) Troponin-I Urgent (17:13 08/22/2016 Eliezer KIM) (17:18 LWhalfeliciano R.N.) Oxygen (2 L/min) (NC) (17:13 08/22/2016 Eliezer KIM) (17:18 LWhalfeliciano R.N.) Pulse oximeter (17:13 08/22/2016 Eliezer KIM) (17:18 LWshay R.N.) EKG - ER Stat (17:13 08/22/2016 Eliezer KIM) (17:18 LWhalfeliciano R.N.) MEDICATION ORDERS: IV FLUIDS: ORDER SHEET NOTES: [Electronically signed by Josee Viera R.N. (20:08/22/2016)] [Electronically signed by Dez Barbosa MD (10:12 08/25/2016)] [Electronically locked/signed by Josee Viera R.N. (20:08/22/2016)]
--- NOTE | 2016-08-22 19:40 | ED ORDER SUMMARY ---
..... Patient: BINTA GÓMEZ SR OrderSheet [facility] VisitID: [id number] [address] [place] [address] 86y, M Registration Date/Time: 08/22/2016 ORDER SHEET Weight: 84.3 kg (stated) Allergies: Erythromycin GENERAL ORDERS: Vitals - Orthostatic (16:44 08/22/2016 Eliezer KIM) (17:18 LWhalen R.N.) Chest 1V Urgent (17:13 08/22/2016 Eliezer KIM) (17:18 LWhalen R.N.) Ct Mri Technologist (Continuous) (17:13 08/22/2016 Eliezer KIM) (17:18 LWhalfeliciano R.N.) CBC w Diff Urgent (17:13 08/22/2016 Eliezer KIM) (17:18 LWshay R.N.) CMP Urgent (17:13 08/22/2016 Eliezer KIM) (17:18 LWhalen R.N.) UA-Culture if indicated Urgent (17:13 08/22/2016 Eliezer KIM) (17:18 LWshay R.N.) Amylase Urgent (17:13 08/22/2016 Eliezer KIM) (17:18 LWhalen R.N.) Lipase Urgent (17:13 08/22/2016 Eliezer KIM) (17:18 LWhalen R.N.) CPK Urgent (17:13 08/22/2016 Eliezer KIM) (17:18 LWshay R.N.) Troponin-I Urgent (17:13 08/22/2016 Eliezer KIM) (17:18 LWhalfeliciano R.N.) Oxygen (2 L/min) (NC) (17:13 08/22/2016 Eliezer KIM) (17:18 LWhalfeliciano R.N.) Pulse oximeter (17:13 08/22/2016 Eliezer KIM) (17:18 LWshay R.N.) EKG - ER Stat (17:13 08/22/2016 Eliezer KIM) (17:18 LWhalfeliciano R.N.) MEDICATION ORDERS: IV FLUIDS: ORDER SHEET NOTES: [Electronically signed by Josee Viera R.N. (20:08/22/2016)] [Electronically signed by Dez Barbosa MD (10:12 08/25/2016)] [Electronically locked/signed by Josee Viera R.N. (20:08/22/2016)]
--- NOTE | 2016-08-25 10:12 | ED MAR SUMMARY ---
..... Medication Administration Record [facility] [address] [place], [place] [id number] Patient: BINTA GÓMEZ Visit ID: [id number] 86y, M Weight: 84.3 kg Height/Length: 71 in BMI: 25.9 ALLERGIES: Erythromycin
--- NOTE | 2016-08-25 10:12 | ED DISCHARGE INSTRUCTIONS ---
Patient: BINTA GÓMEZ SR General Instructions [facility] VisitID: [id number] [place] [address] 86y, M Registration Date/Time: 08/22/2016 Near syncope Postural hypotension. INSTRUCTIONS Drink plenty of fluids. Warnings: Further evaluation is necessary. CONTROLLED SUBSTANCE WARNINGS. GENERAL WARNINGS: Return or contact your physician immediately if your condition worsens or changes unexpectedly, if not improving as expected, or if other problems arise. Your Current Medications: STOP TAKING THE FOLLOWING MEDICATIONS: Rivastigmine Tartrate Oral : Capsule 1.5 mg, 1 capsule 2 x daily. CHANGE THE FOLLOWING MEDICATIONS TO: Furosemide Oral : 20 mg daily, in the morniing and 10 mg (one half tablet) in the evening. Lisinopril Oral : 5 mg daily. CONTINUE TAKING THE FOLLOWING MEDICATIONS: Aspirin Oral : Tablet Chewable 81 mg, 1 tablet daily. Carbidopa-Levodopa Oral : Tablet 25-100 mg, 1 tablet 4x a day. Ipratropium-Albuterol Inhalation : Solution 0.5-2.5 (3) mg/3mL, 1 teaspoon q 4-6 hrs prn. Lovastatin Oral : Tablet 40 mg, 1 tablet at bedtime. Metoprolol Succinate ER Oral : Tablet Extended Release 24 Hour 50 mg, 1/2 tablet daily. Vitamin D3* : 2000 Units daily. Understanding of the discharge instructions verbalized by patient and family. Follow-up with: Xander Maria MD, [facility], , [facility], [address] [place] [address] Follow up in four days. Call for the next available appointment. ADDITIONAL INFORMATION Near-Fainting:Uncertain Cause Fainting (syncope) is a temporary loss of consciousness ("passing out"). It occurs when blood flow to the brain is reduced. Near-fainting ("near-syncope") is like fainting, but you do not fully "pass out." The common minor causes of near fainting include sudden fear, pain, emotional stress, overexertion, or quickly standing up after sitting or lying for a long time. The more serious causes for near fainting are due to either a very slow or very fast heart beat, dehydration, anemia, blood loss, problems related to the heart, or taking too much high blood pressure medicine. The exact cause of your episode is not certain. More tests may be required. Therefore, it is important that you follow up with your doctor as advised. Home Care: 1) Rest today. Resume your normal activities as soon as you are feeling back to normal. 2) If you become light-headed or dizzy, lie down right away or sit with your head between your knees. 3) Because we do not know the exact cause of your near fainting spell, another spell could occur without warning. Therefore, do not drive a car or use dangerous equipment. D o not take a bath alone (use a shower instead). Do not swim alone. You can resume these activities when your doctor says that you are no longer in danger of having a near fainting spell. 4) Stay well hydrated by drinking enough fluid each day. Follow Up with your doctor as instructed. Get Prompt Medical Attention if any of the following occur: -- Another fainting spell occurs, and it is not explained by the common causes listed above -- Chest, arm, neck, jaw, back or abdominal pain -- Shortness of breath -- Weakness, tingling or numbness in one side of the face, one arm or leg -- Slurred speech, confusion, trouble walking or seeing -- Seizure -- Blood in vomit, stools (black or red color) -- (In women) unexpected vaginal bleeding Orthostatic Hypotension The normal blood pressure range is between 90/60and 140/80. Low blood pressure (also calledhypotension) is a decrease in blood pressure from what is normal for you. Orthostatic hypotensionis a type of low blood pressure that occurs only when changing body position from lying to standing. It can cause symptoms of dizziness, lightheadedness or fainting. Some of the causesof orthostatic hypotension are: Certain medicines, including: High blood pressure medicines Diuretics (water pills) Some heart medicines Some antidepressants Pain, anxiety, sedative, and sleeping medicines Dehydration (from vomiting, diarrhea, or poor fluid intake) Severe infection, high fever Blood loss (for example, bleeding from the stomach or intestines) Treatment will depend on the cause of your low blood pressure. Home Care: Rest until symptoms improve. Change positions slowly from lying to standing.When getting out of bed, sit on the side of the bed with your legs down for at least 30 seconds before standing. This gives your body time to adjust to the position change. Follow the treatment plan described by your physician. Follow Up with your doctor or as advised by our staff. Get Prompt Medical Attention if any of the following occur: Dizziness, lightheadedness or fainting Black or red color in your stools or vomit Persistent diarrhea or vomiting Inability to eat or drink Fever of 100.4F (38C) or higher, or as directed by your healthcare provider Urinary burning or foul-smelling urine You have been given the following additional information: Near Syncope, Unknown Hypotension, Orthostatic (Electronically signed by Dez Barbosa MD 08/25/2016 10:12)
--- NOTE | 2016-08-25 10:12 | ED MAR SUMMARY ---
..... Medication Administration Record [facility] [address] [place], [place] [id number] Patient: BINTA GÓMEZ Visit ID: [id number] 86y, M Weight: 84.3 kg Height/Length: 71 in BMI: 25.9 ALLERGIES: Erythromycin
--- NOTE | 2016-08-25 10:12 | ED MED RECONCILIATION SUMMARY ---
Patient: BINTA GÓMEZ SR Medication Reconciliation Report [facility] VisitID: [id number] [address] [place] [address] 86y, M Registration Date/Time: 08/22/2016 Weight: 84.3 kg Height/Length: 71 in. BMI: 25.9 ALLERGIES: Erythromycin The patient's Home Medications are listed below: STOP TAKING THE FOLLOWING MEDICATIONS: Rivastigmine Tartrate Oral (1.5 mg) 1 capsule, 2 x daily CHANGE THE FOLLOWING MEDICATIONS TO: Furosemide Oral : 20 mg daily, in the morniing and 10 mg (one half tablet) in the evening Lisinopril Oral : 5 mg daily CONTINUE TAKING THE FOLLOWING MEDICATIONS: Aspirin Oral (81 mg) 1 tablet, daily Carbidopa-Levodopa Oral (25-100 mg) 1 tablet, 4x a day Ipratropium-Albuterol Inhalation (0.5-2.5 (3) mg/3mL) 1 teaspoon, q 4-6 hrs prn Lovastatin Oral (40 mg) 1 tablet, at bedtime Metoprolol Succinate ER Oral (50 mg) 1/2 tablet, daily Vitamin D3 2000 Units, daily The source(s) of the original Home Medication information: Not obtained. The following Medications were given to the patient in the Emergency Department: None. The following Medications were prescribed to the patient: None.
--- NOTE | 2016-08-25 10:12 | ED MED RECONCILIATION SUMMARY ---
Patient: BINTA GÓMEZ SR Medication Reconciliation Report [facility] VisitID: [id number] [place] [address] 86y, M Registration Date/Time: 08/22/2016 Weight: 84.3 kg Height/Length: 71 in. BMI: 25.9 ALLERGIES: Erythromycin The patient's Home Medications are listed below: STOP TAKING THE FOLLOWING MEDICATIONS: Rivastigmine Tartrate Oral (1.5 mg) 1 capsule, 2 x daily CHANGE THE FOLLOWING MEDICATIONS TO: Furosemide Oral : 20 mg daily, in the morniing and 10 mg (one half tablet) in the evening Lisinopril Oral : 5 mg daily CONTINUE TAKING THE FOLLOWING MEDICATIONS: Aspirin Oral (81 mg) 1 tablet, daily Carbidopa-Levodopa Oral (25-100 mg) 1 tablet, 4x a day Ipratropium-Albuterol Inhalation (0.5-2.5 (3) mg/3mL) 1 teaspoon, q 4-6 hrs prn Lovastatin Oral (40 mg) 1 tablet, at bedtime Metoprolol Succinate ER Oral (50 mg) 1/2 tablet, daily Vitamin D3 2000 Units, daily The source(s) of the original Home Medication information: Not obtained. The following Medications were given to the patient in the Emergency Department: None. The following Medications were prescribed to the patient: None.
== END 2016-08-22 19:53 | disposition home or self-care (01) ==
LOC: ED SRH 16:18
DX: I95.1 Orthostatic hypotension (principal); I10 Essential (primary) hypertension; G20 Parkinson's disease; F02.80 Dementia in other diseases classified elsewhere, unspecified severity, without behavioral disturbance, psychotic disturbance, mood disturbance, and anxiety; I50.9 Heart failure, unspecified; Z79.899 Other long term (current) drug therapy; Z79.82 Long term (current) use of aspirin; Z88.1 Allergy status to other antibiotic agents
CPT/HCPCS: 90004; 90100; 90616; 92235; 92530; 92610; 95059